=== PATIENT | female | born 1970 | race Hispanic/Latino ===

== ENCOUNTER 2019-01-22 20:08 | Inpatient (IN) | payer SELFPAY ==
[2019-01-22] MEDS ORDERED: Ondansetron PF 4 MG/2 ML Vial IVP PRN (22:25)
[2019-01-22] MEDS ORDERED: Ondansetron ODT 4 MG TAB SL PRN (22:25)
[2019-01-22 22:26] VITALS: BMI 34.9
[2019-01-22] MEDS ORDERED: Pantoprazole 40 MG VIAL IVP SCH (23:30)
[2019-01-22] MEDS: Sodium Chloride 0.9% (PF) 10 ML VIAL FS PRN (23:45)
[2019-01-23] MEDS ORDERED: diphenhydrAMINE 25 MG in Sodium Chloride 0.9% 50 ML IVPB SCH (00:15)
[2019-01-23] MEDS: Morphine 2 MG/ML SYRINGE SLOW IVP PRN ×3 (00:30→19:23)
[2019-01-23] MEDS ORDERED: Loratadine 10 MG TAB PO SCH (02:15)
--- NOTE | 2019-01-23 02:49 | HP ---
CHIEF COMPLAINT: Abdominal pain. HISTORY OF PRESENT ILLNESS: This patient is a 48-year-old female, with a history of longstanding alcoholism and drug abuse. The patient reports that sometime around Yared, she started feeling some generalized abdominal pain and she waited out thinking it would pass. The pain became worse and more localized in the mid and left upper quadrant areas of the abdomen. On , the patient went to the emergency department in [place]. There, she was diagnosed with acute pancreatitis and was hospitalized for 10 days. She was discharged after she was told that there was a mass on the pancreatic head that needed further evaluations and she should abstain from alcohol. She did not follow up. She did not make an appointment. She did not pursue biopsy as she was encouraged to do. Two weeks later, she started drinking alcohol again. She states that since that time essentially she has been getting worse generalized abdominal pain, more specific in the left upper quadrant area. She has had intermittent diarrhea, constipation, severe generalized pruritus, and has recently noticed jaundice in her eyes. She was seen in the ED last month with similar symptoms and was told she needed to be transferred her for admission and further workup, but she declined to do so at that time. Thepatient quit drinking alcohol 2 to 3 weeks ago, primarily because she said beer now tastes like pesticide to her. She also reports about a 50-pound weight loss since September. REVIEW OF SYSTEMS: The patient has decreased appetite, significant nausea, and significant recurrence of reflux symptoms. As mentioned above, she has this severe pruritus, which is probably the most challenging part of all of those for her. Otherwise, all systems are reviewed. All pertinent positives and negatives noted in the history of present illness. PAST MEDICAL HISTORY: Notable for COPD, pancreatitis, bipolar disorder. The patient reports she quit taking medications for that 2 years ago. She does have some reflux. PAST SURGICAL HISTORY: Tubal ligation. FAMILY HISTORY: Mother had coronary artery disease with an [place], diabetes, and hypertension. She only met her father once when she was 9 years old. SOCIAL HISTORY: The patient has had heavy alcohol abuse for years and most recently quit 2 to 3 weeks ago. Reports she tried a couple of swallows 2 or 3 days ago, but it tasted like pesticide to her, so she has not taken anymore. She has a history of drug abuse and took cocaine and methamphetamine last week she states, but otherwise has largely been off drugs. CURRENT MEDICATIONS: Omeprazole. ALLERGIES: NONE. PHYSICAL EXAMINATION: VITAL SIGNS: Temperature 98.4, pulse 77, respirations 18, O2 saturation 97% on room air, BP is 105/75. GENERAL APPEARANCE: Age-appropriate female. She is intermittently very uncomfortable because of some abdominal discomfort and reflux symptoms. She is generally dark and jaundiced. HEENT: She has icterus of her sclerae and notably of her soft palate and oral soft tissues. Pupils are reactive. NECK: Supple and symmetric. HEART: Regular rate and rhythm without murmurs, gallops, or rubs. LUNGS: Clear to auscultation bilaterally with good chest wall expansion and air exchange. ABDOMEN: Soft, nondistended with positive bowel sounds. She has significant diffuse tenderness across the entire upper abdomen with some voluntary guarding. EXTREMITIES: No cyanosis, clubbing, or edema. SKIN: Warm and dry. LABORATORY DATA: White count 6.9, hemoglobin 11.7, platelets 273. Sodium 139, potassium 3.9, chloride 105, CO2 is 25, BUN is 12, creatinine is 0.76, glucose 132. Lactic acid is 0.9. AST 118, ALT 169, alkaline phosphatase 609, albumin 3.4, lipase 176. Urinalysis shows some glucose, large bilirubin, trace leukocyte esterase, 4 to 6 white cells, 11 to 20 squamous epithelial cells, 1+ bacteria, and 2+ Trichomonas. Urine drug screen shows amphetamine, methamphetamine, and cocaine. IMAGING STUDIES: CT of the abdomen reveals prominent intrahepatic and extrahepatic biliary dilatation with dilation of the pancreatic duct, cut off the dilated common bile duct in the region of the pancreatic head suggesting underlying pancreatic head malignancy or biliary duct malignancy consistent with history. IMPRESSION AND PLAN: 1. 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 We will provide pain management with morphine. We will consult GI for ERCP. Possibility she could receive some type of stent to relieve the obstructive symptoms. She also needs a biopsy. Also going to consult Palliative Care. 2. History of chronic obstructive pulmonary disease, appears to be very stable at the moment. We will provide p.r.n. nebulizer treatments as needed. 3. Reflux. The patient has a history of reflux having pretty severe symptoms now. We will give some IV Protonix as I am keeping her n.p.o. for possible procedure in the morning. 4. History of drug and alcohol abuse. The patient appears to be outside the window of significant signs for withdrawal. 5. Elevated liver enzymes, likely related to what appears to be a new neoplasm. We will check ammonia levels and coags in the morning. 6. Generalized pruritus, suspect related to the hyperbilirubinemia. We will provide some Benadryl. Job ID: [id number] [facility]
[2019-01-23 05:30] LABS: PTT 28.4 SEC (22.9-36.1); Prothrombin Time 13.3 SEC (12.0-14.7)
[2019-01-23 05:31] LABS: ALT (SGPT) 145 U/L (8-55); AST (SGOT) 106 U/L (5-34); Albumin 3.2 g/dL (3.5-5.0); Alkaline Phosphatase 567 U/L (40-150); Anion Gap 14 mmol/L (10-20); BUN (Urea Nitrogen) 10 mg/dL (7.0-18.7); Bilirubin, Total 15.9 mg/dL (0.2-1.2); Calc. Creatinine Clearance 153 mL/min (70-130); Carbon Dioxide 21 mmol/L (22-29); Chloride 109 mmol/L (98-107); Estimated GFR-MDRD Greater than 90; Globulin 3.1 g/dL (2.4-3.5); Glucose 127 mg/dL (70-105); Potassium 3.8 mmol/L (3.5-5.1); Protein, Total 6.3 g/dL (6.0-8.3); Sodium 140 mmol/L (136-145)
[2019-01-23] MEDS ORDERED: hydrALAZINE 20 MG/ML VIAL SLOW IVP PRN (07:26)
[2019-01-23] MEDS ORDERED: Diabetic Tussin 200 MG/10 ML UDCUP PO PRN (07:26)
[2019-01-23] MEDS ORDERED: Sodium Chloride 0.65% Nasal 44 ML BOT EA NARE PRN (07:26)
[2019-01-23] MEDS ORDERED: Cepastat Lozenges 1 LOZ PO PRN (07:26)
[2019-01-23] MEDS ORDERED: Senokot S 8.6-50 MG TAB PO PRN (07:26)
[2019-01-23] MEDS ORDERED: Loperamide HCl 2 MG CAP PO PRN (07:26)
[2019-01-23] MEDS ORDERED: Zolpidem Tartrate 5 MG TAB PO PRN (07:26)
[2019-01-23] MEDS ORDERED: Bisacodyl 10 MG SUPP PR PRN (07:26)
[2019-01-23] MEDS ORDERED: Artificial Tears 18 DROP/0.9 ML EA EYE PRN (07:26)
[2019-01-23] MEDS ORDERED: Eucerin (Mineral Oil/Petrolatum,White) 30 gm Jar TOP PRN (07:26)
[2019-01-23] MEDS ORDERED: Ondansetron PF 4 MG/2 ML Vial IVP PRN (07:28)
[2019-01-23] MEDS ORDERED: Ondansetron ODT 4 MG TAB PO PRN (07:28)
[2019-01-23] MEDS: Pantoprazole 40 MG VIAL IVP SCH (07:53)
[2019-01-23] MEDS ORDERED: Levofloxacin 500 mg/D5W 100 ml Premix Bag ONE (09:27)
[2019-01-23] MEDS ORDERED: Midazolam HCl 2 mg/2 ml Vial ONE (09:34)
[2019-01-23] MEDS ORDERED: Fentanyl 100 MCG/2 ML VIAL ONE ×2 (09:46→11:21)
[2019-01-23] MEDS ORDERED: Iothalamate Meglumine 60% 50 ML VIAL FS ONE (10:11)
--- NOTE | 2019-01-23 11:04 | RAD ---
Exam: ERCP COMPARISON: CT abdomen/pelvis 01/22/2019 Findings/impression: Limited intraoperative fluoroscopic views during an ERCP were submitted for inte rpretation. There is contrast within a dilated common bile duct and central intrahepatic biliary tree. No obvious filling defect is seen. The last image shows a stent spanning the area of narrowing through the region of the pancreatic head.
[2019-01-23] MEDS ORDERED: Promethazine HCl 25 MG/ML VIAL SLOW IVP PRN (11:05)
[2019-01-23] MEDS ORDERED: Morphine Sulfate 2 MG/ML SYRINGE SLOW IVP PRN (11:05)
[2019-01-23] MEDS ORDERED: HYDROmorphone 2 MG/ML VIAL SLOW IVP PRN (11:05)
[2019-01-23] MEDS ORDERED: Promethazine HCl 25 MG/ML VIAL IM PRN (11:05)
[2019-01-23] MEDS ORDERED: Meperidine HCl/PF 25 MG/ML VIAL SLOW IVP PRN (11:05)
[2019-01-23] MEDS ORDERED: PACU-Morphine 4MG/ML VIAL SLOW IVP PRN (11:05)
[2019-01-23] MEDS ORDERED: Ondansetron HCl/PF 4 MG/2 ML Vial IVP PRN (11:05)
[2019-01-23] MEDS ORDERED: Indomethacin 50 MG SUPP ONE (11:12)
--- NOTE | 2019-01-23 11:22 | CON ---
DATE OF CONSULTATION: 01/23/2019 REASON FOR CONSULTATION: Biliary obstruction. HISTORY OF PRESENT ILLNESS: Ms. Botello is a 48-year-old female, who was admitted to the hospital last night, presenting with complaints of severe pruritus, abdominal discomfort, and prior history of pancreatitis and pancreatic mass. She was found to have elevated bilirubin and mildly elevated lipase. Apparently, she had been seen around in [place], where this was initially diagnosed, she had acute pancreatitis. She states at that time was told she was going to need an ERCP to open up her bile duct, but that her pancreas was too inflamed at that point in time. She reports she did not follow up at that time. She was in the hospital about 10 days. She was also told to abstain from alcohol, which she did for about 2 weeks, then she started drinking again, but in the past 4 weeks, she has drunk no alcohol. She reports she has been alcoholic for 30 years. Over the past several weeks, she has had worsening pruritus, jaundice, icterus, upper abdominal pain mainly in the left side, but across the entire abdomen. She will also have some pain with eating sometimes. Apparently, she had gone to the emergency room at the end of last month and was told that she needed to be admitted for further examination, but she declined that at that time. Other history is significant for the fact that she has lost about 50 pounds since September. REVIEW OF SYSTEMS: Loss of appetite, loss of weight. No fever no vomiting. Pruritus, acholic stools. Positive for some congestion. She reports using inhaler at home, but does not have that here. She has had no hemoptysis, no melena. No hematemesis or hematochezia. She denies any chest pain or dyspnea on exertion. PAST MEDICAL HISTORY: COPD; pancreatitis, diagnosed in September of this year; bipolar disorder, she has been on no medicines for that for 2 years. She has some reflux and takes Prilosec. PAST SURGICAL HISTORY: Tubal ligation. FAMILY HISTORY: Mother had coronary artery disease with [place], diabetes, hypertension. She states she does not really know her father, he had with the surgery and never "woke up." SOCIAL HISTORY: She has been a heavy drinker for about 30 years that she stopped about 2 to 4 weeks ago. She is drinking beer. She has also used drugs including crack cocaine and methamphetamine. Last time she used methamphetamine was a week ago. HOME MEDICATIONS: Omeprazole. ALLERGIES: NONE KNOWN. MEDICATIONS: Medications at here; 1. Tylenol. 2. DuoNeb. 3. Benadryl. 4. Robitussin. 5. Hydralazine. 6. Lomotil. 7. P.r.n. morphine. 8. P.r.n. Zofran. 9. Protonix 40 IV daily. PHYSICAL EXAMINATION: GENERAL: She is very anxious. She is resting in bed. VITAL SIGNS: Temperature is 98, pulse 76, pressure 135/83. She has some sores in her skin, probably from itching, although cannot rule out bug bites. She is icteric. She is restless in bed, but mainly from nervousness. She denies any severe pain at this time. HEENT: Oropharynx is dry. NECK: Supple. LUNGS: Clear. HEART: Regular rate and rhythm without clicks, rubs, or murmurs. ABDOMEN: Soft. There is tenderness, but no rebound or guarding diffusely. EXTREMITIES: No clubbing, cyanosis, or edema. NEUROLOGIC: Grossly intact. LABORATORY STUDIES: White count 6.9, hemoglobin 11.7, platelet count 273. INR was 1. Sodium 140, potassium 3.8, BUN and creatinine are 10 and 0.6, glucose 127, calcium 9. Bilirubin 15, it was 9 on 01/07. AST and ALT are 106 and 145, alkaline phosphatase is 567. Lipase was 176 yesterday. Urinalysis revealed bilirubin, trace leukocyte esterase, 11 to 20 squames, 4 to 6 white blood cells, 1+ bacteria, and positive Trichomonas. Drug screen on 01/22, positive for amphetamine, methamphetamine, and cocaine. Alcohol on 01/07 was less than 10. CAT scan was reviewed, this shows ill-defined fullness in the head of the pancreas. There is massive intrahepatic ductal dilatation and common bile duct dilation up to 1.9 cm. There is dilation of the pancreatic duct. ASSESSMENT: 1. This is a 48-year-old female, who has evidence of pancreatic and biliary duct dilatation and obstruction. She is symptomatic with severe pruritus. She has no signs of cholangitis. She has some abdominal pain and mildly elevated lipase, but no overt pancreatitis on CAT scan. It is unclear if she has a pancreas mass or this is just changes from pancreatitis, although she states when she was initially in the hospital in [place], she was told there was a mass present in the pancreas. At that time, she did not follow up for any workup with that and has refused admission to the hospital as recently as the 07 of January. Differential diagnosis would include a pancreatic neoplasia, ampullary neoplasia, or even just scar tissue from recurrent pancreatitis. 2. History of drug use in the past including IV. She is not aware of any previous infection testing and will need this. 3. Chronic obstructive pulmonary disease, mild. 4. History of alcoholism and alcohol abuse. 5. History of drug use with positive drug screen still presently. 6. She is very anxious. RECOMMENDATIONS: 1. We will start her on IV fluids. 2. ERCP today. Risks, benefits, and possible complications including perforation, bleeding, reaction to medication, aspiration, and pancreatitis discussed with the patient and her family member and friend at the bedside. 3. The patient will need testing for hepatitis A, B, and C, and HIV. 4. The patient will likely ultimately need an EUS for diagnosis if it appears there is a mass present and we cannot make a diagnosis at the time of ERCP. 5. We have discussed with the patient and the acquaintance with her that there is some risk that we cannot get into the bile duct and get her drained. The patient was given time to ask questions and did so, which we answered. We will proceed with this procedure this morning. Job ID: [id number]
[2019-01-23] MEDS ORDERED: Promethazine HCl 25 MG/ML VIAL ONE (11:24)
--- NOTE | 2019-01-23 11:56 | PDOC.PN ---
- Subjective Encounter Start Date: 01/23/19 Encounter Start Time: 15:22 Patient seen and examined. No new complaints. No overnight events - Objective Resuscitation Status - Order Detail: 01/22/19 23:21 Resuscitation Status Routine Resuscitation Status: FULL: Full Resuscitation MAR Reviewed: Yes Vital Signs & Weight: Vital Signs (12 hours) Temp Pulse Resp BP Pulse Ox 01/23/19 08:00 98 01/23/19 07:52 98.4 F 76 18 135/83 98 01/23/19 00:00 98.9 F 76 18 116/81 96 Weight Weight 191 lb 6.4 oz Result Diagrams: 01/23/19 04:59 Radiology Reviewed by me: Yes Phys Exam - Physical Examination Constitutional: NAD HEENT: PERRLA, moist MMs icterus+ Neck: no JVD, supple Respiratory: no wheezing, no rales, no rhonchi Cardiovascular: RRR, no significant murmur, no rub Gastrointestinal: soft, no distention, positive bowel sounds Musculoskeletal: no edema, pulses present Neurological: non-focal, normal sensation, moves all 4 limbs Lymphatic: no nodes Psychiatric: normal affect, A&O x 3 Skin: no rash, normal turgor Dx/Plan (1) Obstructive jaundice Code(s): K83.1 - OBSTRUCTION OF BILE DUCT Status: Acute (2) Pancreatic mass Status: Acute (3) Abnormal LFTs Code(s): R94.5 - ABNORMAL RESULTS OF LIVER FUNCTION STUDIES Status: Acute (4) COPD (chronic obstructive pulmonary disease) Status: Chronic (5) GERD (gastroesophageal reflux disease) Code(s): K21.9 - GASTRO-ESOPHAGEAL REFLUX DISEASE WITHOUT ESOPHAGITIS Status: Chronic (6) Obesity (BMI 30-39.9) Code(s): E66.9 - OBESITY, UNSPECIFIED Status: Chronic (7) Polysubstance abuse Code(s): F19.10 - OTHER PSYCHOACTIVE SUBSTANCE ABUSE, UNCOMPLICATED Status: Chronic - Plan cont current plan of care * continue IVF * repeat labs tomorrow * today ERCP/MRCP * medication reviewed as below * symptomatic treatment. Review of Systems - Review of Systems ENT: negative: Ear Pain, Ear Discharge, Nose Pain, Nose Discharge, Nose Congestion, Mouth Pain, Mouth Swelling, Throat Pain, Throat Swelling, Other Respiratory: negative: Cough, Dry, Shortness of Breath, Hemoptysis, SOB with Excertion, Pleuritic Pain, Sputum, Wheezing Cardiovascular: negative: chest pain, palpitations, orthopnea, paroxysmal nocturnal dyspnea, edema, light headedness, other Gastrointestinal: negative: Nausea, Vomiting, Abdominal Pain, Diarrhea, Constipation, Melena, Hematochezia, Other Genitourinary: negative: Dysuria, Frequency, Incontinence, Hematuria, Retention , Other Musculoskeletal: negative: Neck Pain, Shoulder Pain, Arm Pain, Back Pain, Hand Pain, Leg Pain, Foot Pain, Other - Medications/Allergies Allergies/Adverse Reactions: Allergies Allergy/AdvReac Type Severity Reaction Status Date / Time No Known Drug Allergies Allergy Verified 01/22/19 22:24 Medications: Current Medications Acetaminophen (Tylenol) 650 mg PO Q4H PRN PRN Reason: Headache/Fever/Mild Pain (1-3) Albuterol/Ipratropium (Duoneb) 3 ml NEB N3UR-US PRN PRN Reason: SOB &/or Wheezing Artificial Tears (Tears Naturale) 2 drop EA EYE PRN PRN PRN Reason: Dry Eyes Bisacodyl (Dulcolax) 10 mg VT DAILYPRN PRN PRN Reason: Constipation Diphenhydramine HCl (Benadryl) 25 mg IVP Q4H PRN PRN Reason: Itching & Hives (mild) Enoxaparin Sodium (Lovenox) 40 mg SC 2100 CHACE Fentanyl (Pacu-Sublimaze) 50 mcg SLOW IVP Q10MIN PRN PRN Reason: Moderate to Severe Pain (6-10) Stop: 01/23/19 14:05 Guaifenesin (Robitussin Sf) 200 mg PO Q4H PRN PRN Reason: Cough Hydralazine HCl (Apresoline) 10 mg SLOW IVP Q4H PRN PRN Reason: SBP > 180 and HR < 70 Hydromorphone HCl (Pacu-Dilaudid) 0.5 mg SLOW IVP Q10MIN PRN PRN Reason: Moderate to Severe Pain (6-10) Stop: 01/23/19 14:05 Lactated Ringer's (Lactated Ringer's) 1,000 mls @ 120 mls/hr IV .Q8H20M CHACE Loperamide HCl (Imodium) 2 mg PO PRN PRN PRN Reason: Diarrhea/Loose Stools Meperidine HCl (Pacu-Demerol) 25 mg SLOW IVP ONE PRN PRN Reason: Shivering Stop: 01/23/19 14:05 Mineral Oil/White Petrolatum (Eucerin Cream) 0 gm TOP BIDPRN PRN PRN Reason: Dry Skin Morphine Sulfate (Morphine) 2 mg SLOW IVP Q4H PRN PRN Reason: Moderate to Severe Pain (6-10) Last Admin: 01/23/19 07:52 Dose: 2 mg Morphine Sulfate (Pacu-Morphine) 4 mg SLOW IVP ONE PRN PRN Reason: Moderate to Severe Pain (6-10) Stop: 01/23/19 14:05 Morphine Sulfate (Pacu-Morphine Sulfate) 2 mg SLOW IVP Q10MIN PRN PRN Reason: Moderate to Severe Pain (6-10) Stop: 01/23/19 14:05 Ondansetron HCl (Zofran Odt) 4 mg PO Q6H PRN PRN Reason: Nausea/Vomiting Ondansetron HCl (Zofran) 4 mg IVP Q6H PRN PRN Reason: Nausea/Vomiting Ondansetron HCl (Pacu-Zofran) 4 mg IVP ONE PRN PRN Reason: Nausea/Vomiting Stop: 01/23/19 14:05 Pantoprazole Sodium (Protonix) 40 mg IVP DAILY CHACE Last Admin: 01/23/19 07:53 Dose: 40 mg Promethazine HCl (Pacu-Phenergan) 6.25 mg SLOW IVP ONE PRN PRN Reason: Nausea/Vomiting Stop: 01/23/19 14:05 Promethazine HCl (Pacu-Phenergan) 6.25 mg IM ONE PRN PRN Reason: Nausea/Vomiting Stop: 01/23/19 14:05 Senna/Docusate Sodium (Senokot S) 2 tab PO BID PRN PRN Reason: Constipation Sodium Chloride (Normal Saline Pf) 10 ml FS PRN PRN PRN Reason: RECONSTITUTION Last Admin: 01/22/19 23:45 Dose: 10 ml Sodium Chloride ([place] Nasal [place] 0.65%) 0 ml EA NARE QIDPRN PRN PRN Reason: Nasal Congestion Throat Lozenges (Cepastat Lozenges) 1 joselo PO Q2H PRN PRN Reason: Sore Throat Zolpidem Tartrate (Ambien) 5 mg PO HSPRN PRN PRN Reason: Insomnia
--- NOTE | 2019-01-23 12:05 | OP ---
DATE OF PROCEDURE: 01/23/2019 PROCEDURE PERFORMED: Endoscopic retrograde cholangiopancreatography with stent placement and brushing of bile duct. PREOPERATIVE DIAGNOSES: 1. Biliary obstruction with jaundice, pruritus, and icterus. 2. Possible mass in the head of the pancreas with dilated intrahepatic and common bile duct as well as pancreatic duct. POSTOPERATIVE DIAGNOSES: 1. Normal ampulla with periampullary diverticula. 2. 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 3. Sphincterotomy was performed. Stricture was brushed and a 5 cm 11.5-Tamazight stent was placed across the stricture with good drainage both endoscopically and radiographically. ANESTHESIA: General endotracheal anesthesia. Levaquin 500 mg IV was given preprocedure, Indocin suppositories 100 mg and IV fluids to decrease risk of post-ERCP pancreatitis. COMPLICATIONS: None. RECOMMENDATIONS: 1. Start liquid diet, advance slowly as tolerated. Follow liver function tests. Await brushing results. 2. The patient will need stent change or removal in the next 2 to 3 months. This will be predicated on ultimate diagnosis of the underlying pathology. DESCRIPTION OF PROCEDURE: After the patient was informed of the risks, benefits, and possible complications of endoscopy including perforation, bleeding, reaction to medication, aspiration, and pancreatitis, informed consent was obtained. She was brought to the fluoroscopy suite where she was intubated and placed in a prone position. A bite block was placed inside the orifice. The side-viewing duodenum scope was advanced to the esophagus, stomach, and second and third portions of the duodenum. The ampulla was brought into view. The ampulla appeared normal, except for a small periampullary diverticula. Cannulation was obtained with guidewire assistance. Initially, guidewire was placed in the pancreatic duct x2. No injections. One small injection of 0.1 mL was performed. The pancreatic duct was not filled. The catheter and wire were removed from the pancreatic duct and repositioned. We were able to cannulate the bile duct with a wire and then confirmed this with cholangiogram. Stricture 3 cm in length at the distal aspect of the duct was noted. Wire was placed up in the intrahepatic biliary tree. Cholangiogram revealed massively dilated intrahepatic bile duct. The 15 to 20 mm of the entire ductal system was not filled. Sphincterotomy was then performed over the guidewire and a 5 cm 11.5-Tamazight stent was deployed over the guidewire with a cholangiogram performed through the guide catheter confirming the proximal extent of the stricture. There was good deployment of the stent with good drainage noted both endoscopically and radiographically. The wires and guide catheter were removed. Further documentation was obtained. The stomach and duodenum were desufflated, and the scope was removed. The patient was brought to recovery room in stable condition. Job ID: [id number]
[2019-01-23] MEDS: Lactated Ringer's 1,000 ML IV SCH ×2 (13:49→19:46)
[2019-01-23] MEDS: diphenhydrAMINE 50 MG/ML VIAL IVP PRN ×2 (13:50→20:48)
[2019-01-23] MEDS ORDERED: Rocuronium Bromide 10 MG/ML (10ML VIAL) ONE (16:48)
[2019-01-23] MEDS ORDERED: Glycopyrrolate 0.2 MG/ML 5 ML SYRINGE ONE (16:48)
[2019-01-23] MEDS ORDERED: PROPOFOL 200 MG/20 ML VIAL ONE (16:48)
[2019-01-23] MEDS ORDERED: Lidocaine 1% PF 5 ML VIAL ONE (16:48)
[2019-01-23] MEDS ORDERED: Ondansetron PF 4 MG/2 ML Vial ONE (16:48)
[2019-01-23] MEDS ORDERED: Dexamethasone 20 MG/5 ML VIAL ONE (16:48)
[2019-01-23] MEDS: hydrOXYzine 25 MG TAB PO PRN ×2 (16:56→22:03)
[2019-01-23] MEDS: Enoxaparin Sodium 40 MG/0.4 ML SYRINGE SC SCH (19:24)
[2019-01-24] MEDS: Lactated Ringer's 1,000 ML IV SCH ×3 (00:34→21:51)
[2019-01-24] MEDS: Morphine 2 MG/ML SYRINGE SLOW IVP PRN ×3 (04:49→20:06)
[2019-01-24] MEDS: hydrOXYzine 25 MG TAB PO PRN ×2 (06:30→14:40)
[2019-01-24] MEDS: diphenhydrAMINE 50 MG/ML VIAL IVP PRN (06:30)
[2019-01-24] MEDS: Pantoprazole 40 MG VIAL IVP SCH (07:34)
[2019-01-24] MEDS: Sodium Chloride 0.9% (PF) 10 ML VIAL FS PRN (07:34)
[2019-01-24 07:54] LABS: #Eosinphils 0.1 thou/uL (0.0-0.7); #Lymphocytes 2.2 thou/uL (1.20-3.40); #Monocytes 0.6 thou/uL (0.11-0.59); #Neutrophils 4.5 thou/uL (1.40-6.50); %Basophils 0.3 % (0.0-1.0); %Eosinophils 0.9 % (0.0-10.0); %Lymphocytes 29.4 % (21.0-51.0); %Monocytes 7.6 % (0.0-10.0); %Neutrophils 61.9 % (42.0-75.0); Hemoglobin 10.6 g/dL (12.0-16.0); Mean Corpuscular HGB CONC 32.8 g/dL (32.0-36.0); Mean Corpuscular Volume 97.5 fL (78.0-98.0); Mean Platelet Volume 11.1 fL (7.4-10.4); Platelet Count 228 thou/uL (130-400); RBC Distribution Width 14.7 % (11.5-14.5); Red Blood Cell (RBC) Count 3.33 mill/uL (4.20-5.40); White Blood Cell (WBC) Count 7.3 thou/uL (4.8-10.8)
[2019-01-24 08:06] LABS: ALT (SGPT) 113 U/L (8-55); AST (SGOT) 56 U/L (5-34); Albumin 3.1 g/dL (3.5-5.0); Alkaline Phosphatase 514 U/L (40-150); Anion Gap 11 mmol/L (10-20); BUN (Urea Nitrogen) 12 mg/dL (7.0-18.7); Bilirubin, Total 7.1 mg/dL (0.2-1.2); Calc. Creatinine Clearance 150 mL/min (70-130); Calcium 9.1 mg/dL (7.8-10.44); Carbon Dioxide 26 mmol/L (22-29); Chloride 105 mmol/L (98-107); Estimated GFR-MDRD Greater than 90; Globulin 3.6 g/dL (2.4-3.5); Glucose 131 mg/dL (70-105); Lipase 114 U/L (8-78); Potassium 3.7 mmol/L (3.5-5.1); Protein, Total 6.7 g/dL (6.0-8.3); Sodium 138 mmol/L (136-145)
[2019-01-24 08:26] LABS: HBCM Index 0.08 S/CO (0-0.79); HBSAg Index 0.42 S/CO (0-0.99); Hep A IgM AB Non-Reactive (NonReactive); Hep A IgM S/CO 0.23 S/CO (0-0.79); Hep B Surf Ag Non-Reactive S/CO (NonReactive); Hep C IgG Ab Non-Reactive (NonReactive); Hep C Index 0.11 S/CO (0-0.79); Hepatitis B Core IgM Abs Non-Reactive (NonReactive)
[2019-01-24] MEDS ORDERED: Lorazepam 2 MG/ML VIAL SLOW IVP SCH (10:00)
--- NOTE | 2019-01-24 11:28 | PDOC.PN ---
- Subjective Encounter Start Date: 01/24/19 Encounter Start Time: 09:45 Patient seen and examined. No new complaints. No overnight events - Objective Resuscitation Status - Order Detail: 01/22/19 23:21 Resuscitation Status Routine Resuscitation Status: FULL: Full Resuscitation MAR Reviewed: Yes Vital Signs & Weight: Vital Signs (12 hours) Temp Pulse Resp BP Pulse Ox 01/24/19 08:00 98 01/24/19 07:42 98.0 F 68 22 H 131/85 98 01/24/19 04:54 68 97 Weight Admit Weight 191 lb 6.4 oz Weight 191 lb 6.4 oz Result Diagrams: 01/24/19 07:24 01/24/19 07:24 Phys Exam - Physical Examination Constitutional: NAD HEENT: PERRLA, moist MMs iceterus reduced Neck: no JVD, supple Respiratory: no wheezing, no rales, no rhonchi Cardiovascular: RRR, no significant murmur, no rub Gastrointestinal: soft, no distention, positive bowel sounds RUQ discomfort Musculoskeletal: no edema, pulses present Neurological: non-focal, normal sensation, moves all 4 limbs Lymphatic: no nodes Psychiatric: normal affect, A&O x 3 Skin: no rash, normal turgor Dx/Plan (1) Obstructive jaundice Code(s): K83.1 - OBSTRUCTION OF BILE DUCT Status: Acute (2) Pancreatic mass Status: Acute (3) Abnormal LFTs Code(s): R94.5 - ABNORMAL RESULTS OF LIVER FUNCTION STUDIES Status: Acute (4) COPD (chronic obstructive pulmonary disease) Status: Chronic (5) GERD (gastroesophageal reflux disease) Code(s): K21.9 - GASTRO-ESOPHAGEAL REFLUX DISEASE WITHOUT ESOPHAGITIS Status: Chronic (6) Obesity (BMI 30-39.9) Code(s): E66.9 - OBESITY, UNSPECIFIED Status: Chronic (7) Polysubstance abuse Code(s): F19.10 - OTHER PSYCHOACTIVE SUBSTANCE ABUSE, UNCOMPLICATED Status: Chronic - Plan cont current plan of care, plan discussed w/ family * today MRCP, further plan based on MRCP report * will monitor LFT trend * GI following. * counselled to avoid polysubstance abuse * medication reviewed as below * symptomatic treatment Review of Systems - Review of Systems ENT: negative: Ear Pain, Ear Discharge, Nose Pain, Nose Discharge, Nose Congestion, Mouth Pain, Mouth Swelling, Throat Pain, Throat Swelling, Other Respiratory: negative: Cough, Dry, Shortness of Breath, Hemoptysis, SOB with Excertion, Pleuritic Pain, Sputum, Wheezing Cardiovascular: negative: chest pain, palpitations, orthopnea, paroxysmal nocturnal dyspnea, edema, light headedness, other Gastrointestinal: Nausea, Abdominal Pain. negative: Vomiting, Diarrhea, Constipation, Melena, Hematochezia, Other Genitourinary: negative: Dysuria, Frequency, Incontinence, Hematuria, Retention , Other Musculoskeletal: negative: Neck Pain, Shoulder Pain, Arm Pain, Back Pain, Hand Pain, Leg Pain, Foot Pain, Other Skin: negative: Rash, Lesions, Sloan, Bruising, Other - Medications/Allergies Allergies/Adverse Reactions: Allergies Allergy/AdvReac Type Severity Reaction Status Date / Time No Known Drug Allergies Allergy Verified 01/22/19 22:24 Medications: Current Medications Acetaminophen (Tylenol) 650 mg PO Q4H PRN PRN Reason: Headache/Fever/Mild Pain (1-3) Albuterol/Ipratropium (Duoneb) 3 ml NEB [id number] PRN PRN Reason: SOB &/or Wheezing Last Admin: 01/24/19 04:54 Dose: 3 ml Artificial Tears (Tears Naturale) 2 drop EA EYE PRN PRN PRN Reason: Dry Eyes Bisacodyl (Dulcolax) 10 mg [place] DAILYPRN PRN PRN Reason: Constipation Diphenhydramine HCl (Benadryl) 25 mg IVP Q4H PRN PRN Reason: Itching & Hives (mild) Last Admin: 01/24/19 06:30 Dose: 25 mg Enoxaparin Sodium (Lovenox) 40 mg SC 2100 CHACE Last Admin: 01/23/19 19:24 Dose: Not Given Guaifenesin (Robitussin Sf) 200 mg PO Q4H PRN PRN Reason: Cough Hydralazine HCl (Apresoline) 10 mg SLOW IVP Q4H PRN PRN Reason: SBP > 180 and HR < 70 Hydroxyzine HCl (Atarax) 25 mg PO Q6H PRN PRN Reason: Itching Last Admin: 01/24/19 06:30 Dose: 25 mg Lactated Ringer's (Lactated Ringer's) 1,000 mls @ 120 mls/hr IV .Q8H20M [facility] Last Admin: 01/24/19 11:02 Dose: 1,000 mls Loperamide HCl (Imodium) 2 mg PO PRN PRN PRN Reason: Diarrhea/Loose Stools Lorazepam (Ativan) 2 mg SLOW IVP NOW [facility] Stop: 01/24/19 12:00 Last Admin: 01/24/19 10:07 Dose: 2 mg Mineral Oil/White Petrolatum (Eucerin Cream) 0 gm TOP BIDPRN PRN PRN Reason: Dry Skin Morphine Sulfate (Morphine) 2 mg SLOW IVP Q4H PRN PRN Reason: Moderate to Severe Pain (6-10) Last Admin: 01/24/19 04:49 Dose: 2 mg Ondansetron HCl (Zofran Odt) 4 mg PO Q6H PRN PRN Reason: Nausea/Vomiting Ondansetron HCl (Zofran) 4 mg IVP Q6H PRN PRN Reason: Nausea/Vomiting Pantoprazole Sodium (Protonix) 40 mg IVP DAILY [facility] Last Admin: 01/24/19 07:34 Dose: 40 mg Senna/Docusate Sodium (Senokot S) 2 tab PO BID PRN PRN Reason: Constipation Sodium Chloride (Normal Saline Pf) 10 ml FS PRN PRN PRN Reason: RECONSTITUTION Last Admin: 01/24/19 07:34 Dose: 10 ml Sodium Chloride ([place] Nasal [place] 0.65%) 0 ml EA NARE QIDPRN PRN PRN Reason: Nasal Congestion Throat Lozenges (Cepastat Lozenges) 1 joselo PO Q2H PRN PRN Reason: Sore Throat Zolpidem Tartrate (Ambien) 5 mg PO HSPRN PRN PRN Reason: Insomnia
[2019-01-24] MEDS: Acetaminophen 325 MG TAB PO PRN (11:44)
--- NOTE | 2019-01-24 12:30 | MRI ---
MRI ABDOMEN WITH AND WITHOUT IV CONTRAST: Date: 01/24/19 HISTORY: Biliary dilatation, status post stent placement. Pancreatic mass. FINDINGS: Comparison made with CT scan from previous day. There is biliary ductal dilatation. Biliary stent is present. There is a 1.5 cm hypointense mass in the uncinate process of the pancreas. The pancreatic duct is di lated. No liver masses are seen. The spleen, adrenal glands, and kidneys are normal. No gallstones are seen. No free fluid or lymphadenopathy noted. There is no tumor involvement of the celiac axis, SMA, or the portal veins. The bone marrow signal is normal. IMPRESSION: Findings suspicious for pancreatic malignancy (1.5 cm mass) in the uncinate process of the pancreas. POS: CINDY
--- NOTE | 2019-01-24 17:44 | PRG ---
DATE OF SERVICE: 01/24/2019 SUBJECTIVE: Ms. Botello is resting in bed. She states that she does have some left upper quadrant and left back pain. She has a lot less itchy, but still is itchy. OBJECTIVE: VITAL SIGNS: Temperature is 98.5, pulse 96, O2 saturations are 85% on room air, and blood pressure is 118/79. LUNGS: Clear. HEART: Regular rate and rhythm without clicks, rubs, or murmurs. ABDOMEN: Soft and nontender. There is some tenderness in the left flank and side. LABORATORY DATA: White count 7.3, hemoglobin 10.6, platelet count 228. Bilirubin is down from 15 to 7, AST from 106 to 56, ALT from 145 to 113, alkaline phosphatase from 567 to 514, lipase is 114. CEA is 6.24. CA-19-9 is pending. Hepatitis A, B and C are negative. HIV is pending. ASSESSMENT: Obstructive jaundice, improving status post stent placement. Cytology specimen from bile duct stricture. Brushing is pending. MRI did show a 1.5 cm mass in the head of the pancreas. Differential diagnosis would include primary pancreatic malignancy, adenocarcinoma, or neuroendocrine tumor versus scar from previous episodes of pancreatitis. Prior history of substance abuse and alcohol abuse. No signs of withdrawal at this point in time. RECOMMENDATIONS: 1. We will give her banana bag daily, multivitamin, thiamine, and folate orally. 2. Await CA-19-9. Await bile duct brushings. If these are all negative, we can reasonably consider transfer to a tertiary care facility, where EUS and pancreatic surgeons are available. Job ID: [id number]
[2019-01-24] MEDS: Enoxaparin Sodium 40 MG/0.4 ML SYRINGE SC SCH (20:07)
[2019-01-25] MEDS: Lactated Ringer's 1,000 ML IV SCH ×2 (04:07→12:14)
[2019-01-25] MEDS: Morphine 2 MG/ML SYRINGE SLOW IVP PRN ×4 (04:10→20:29)
[2019-01-25 05:32] LABS: #Basophils 0.1 thou/uL (0.0-0.2); #Eosinphils 0.1 thou/uL (0.0-0.7); #Lymphocytes 2.6 thou/uL (1.20-3.40); #Monocytes 0.5 thou/uL (0.11-0.59); #Neutrophils 3.2 thou/uL (1.40-6.50); %Basophils 1.3 % (0.0-1.0); %Lymphocytes 39.9 % (21.0-51.0); %Monocytes 8.1 % (0.0-10.0); %Neutrophils 49.7 % (42.0-75.0); Hemoglobin 10.8 g/dL (12.0-16.0); Mean Corpuscular HGB CONC 32.5 g/dL (32.0-36.0); Mean Corpuscular Hemoglobin 31.2 pg (27.0-31.0); Mean Corpuscular Volume 96.1 fL (78.0-98.0); Mean Platelet Volume 10.9 fL (7.4-10.4); Platelet Count 225 thou/uL (130-400); RBC Distribution Width 14.6 % (11.5-14.5); Red Blood Cell (RBC) Count 3.47 mill/uL (4.20-5.40); White Blood Cell (WBC) Count 6.4 thou/uL (4.8-10.8)
[2019-01-25 05:59] LABS: ALT (SGPT) 105 U/L (8-55); AST (SGOT) 57 U/L (5-34); Alkaline Phosphatase 430 U/L (40-150); Anion Gap 13 mmol/L (10-20); BUN (Urea Nitrogen) 8 mg/dL (7.0-18.7); Calc. Creatinine Clearance 161 mL/min (70-130); Calcium 8.8 mg/dL (7.8-10.44); Carbon Dioxide 25 mmol/L (22-29); Chloride 106 mmol/L (98-107); Estimated GFR-MDRD Greater than 90; Globulin 3.5 g/dL (2.4-3.5); Glucose 108 mg/dL (70-105); Lipase 104 U/L (8-78); Potassium 3.6 mmol/L (3.5-5.1); Protein, Total 6.5 g/dL (6.0-8.3); Sodium 140 mmol/L (136-145)
[2019-01-25 06:13] LABS: HIV (1/2) Antibody/Antigen Non-Reactive (NonReactive); HIV 1/2 INDEX 0.08 S/CO (<1.00)
[2019-01-25] MEDS: Sodium Chloride 0.9% (PF) 10 ML VIAL FS PRN (08:04)
[2019-01-25] MEDS: Pantoprazole 40 MG VIAL IVP SCH (08:04)
[2019-01-25] MEDS: Acetaminophen 325 MG TAB PO PRN (09:50)
--- NOTE | 2019-01-25 10:40 | PDOC.PN ---
- Subjective Encounter Start Date: 01/25/19 Encounter Start Time: 08:00 Patient seen and examined. No new complaints. No overnight events pt has no BM for few days, she has abdominal pain she does not want to be transferred to [place] for higher level of care - Objective Resuscitation Status - Order Detail: 01/22/19 23:21 Resuscitation Status Routine Resuscitation Status: FULL: Full Resuscitation MAR Reviewed: Yes Vital Signs & Weight: Vital Signs (12 hours) Temp Pulse Resp BP Pulse Ox 01/25/19 08:00 97 01/25/19 07:45 98.6 F 60 20 156/89 H 97 Weight Admit Weight 191 lb 6.4 oz Weight 191 lb 6.4 oz Result Diagrams: 01/25/19 05:11 01/25/19 05:11 Phys Exam - Physical Examination Constitutional: NAD HEENT: PERRLA, moist MMs, sclera anicteric Neck: no JVD, supple Respiratory: no wheezing, no rales, no rhonchi Cardiovascular: RRR, no significant murmur, no rub Gastrointestinal: soft, non-tender, no distention, positive bowel sounds Musculoskeletal: no edema, pulses present Neurological: non-focal, normal sensation, moves all 4 limbs Lymphatic: no nodes Psychiatric: normal affect, A&O x 3 Skin: no rash, normal turgor Dx/Plan (1) Obstructive jaundice Code(s): K83.1 - OBSTRUCTION OF BILE DUCT Status: Acute (2) Pancreatic mass Status: Acute (3) Abnormal LFTs Code(s): R94.5 - ABNORMAL RESULTS OF LIVER FUNCTION STUDIES Status: Acute (4) COPD (chronic obstructive pulmonary disease) Status: Chronic (5) GERD (gastroesophageal reflux disease) Code(s): K21.9 - GASTRO-ESOPHAGEAL REFLUX DISEASE WITHOUT ESOPHAGITIS Status: Chronic (6) Obesity (BMI 30-39.9) Code(s): E66.9 - OBESITY, UNSPECIFIED Status: Chronic (7) Polysubstance abuse Code(s): F19.10 - OTHER PSYCHOACTIVE SUBSTANCE ABUSE, UNCOMPLICATED Status: Chronic - Plan cont current plan of care * fleet enema * repeat labs tomorrow * pain control * pt has decided not to be transferred for higher level of care, she understands consequences * medication reviewed as below * symptomatic treatment. Review of Systems - Review of Systems ENT: negative: Ear Pain, Ear Discharge, Nose Pain, Nose Discharge, Nose Congestion, Mouth Pain, Mouth Swelling, Throat Pain, Throat Swelling, Other Respiratory: negative: Cough, Dry, Shortness of Breath, Hemoptysis, SOB with Excertion, Pleuritic Pain, Sputum, Wheezing Cardiovascular: negative: chest pain, palpitations, orthopnea, paroxysmal nocturnal dyspnea, edema, light headedness, other Gastrointestinal: Abdominal Pain, Constipation. negative: Nausea, Vomiting, Diarrhea, Melena, Hematochezia, Other Genitourinary: negative: Dysuria, Frequency, Incontinence, Hematuria, Retention , Other Musculoskeletal: negative: Neck Pain, Shoulder Pain, Arm Pain, Back Pain, Hand Pain, Leg Pain, Foot Pain, Other Skin: negative: Rash, Lesions, Sloan, Bruising, Other - Medications/Allergies Allergies/Adverse Reactions: Allergies Allergy/AdvReac Type Severity Reaction Status Date / Time No Known Drug Allergies Allergy Verified 01/22/19 22:24 Medications: Current Medications Acetaminophen (Tylenol) 650 mg PO Q4H PRN PRN Reason: Headache/Fever/Mild Pain (1-3) Last Admin: 01/25/19 09:50 Dose: 650 mg Albuterol/Ipratropium (Duoneb) 3 ml NEB [id number] PRN PRN Reason: SOB &/or Wheezing Last Admin: 01/24/19 04:54 Dose: 3 ml Artificial Tears (Tears Naturale) 2 drop EA EYE PRN PRN PRN Reason: Dry Eyes Bisacodyl (Dulcolax) 10 mg [place] DAILYPRN PRN PRN Reason: Constipation Last Admin: 01/24/19 14:40 Dose: 10 mg Diphenhydramine HCl (Benadryl) 25 mg IVP Q4H PRN PRN Reason: Itching & Hives (mild) Last Admin: 01/24/19 06:30 Dose: 25 mg Enoxaparin Sodium (Lovenox) 40 mg SC 2100 CHACE Last Admin: 01/24/19 20:07 Dose: 40 mg Guaifenesin (Robitussin Sf) 200 mg PO Q4H PRN PRN Reason: Cough Hydralazine HCl (Apresoline) 10 mg SLOW IVP Q4H PRN PRN Reason: SBP > 180 and HR < 70 Hydroxyzine HCl (Atarax) 25 mg PO Q6H PRN PRN Reason: Itching Last Admin: 01/24/19 14:40 Dose: 25 mg Lactated Ringer's (Lactated Ringer's) 1,000 mls @ 120 mls/hr IV .Q8H20M [facility] [place] Last Admin: 01/25/19 04:07 Dose: 1,000 mls Loperamide HCl (Imodium) 2 mg PO PRN PRN PRN Reason: Diarrhea/Loose Stools Mineral Oil/White Petrolatum (Eucerin Cream) 0 gm TOP BIDPRN PRN PRN Reason: Dry Skin Morphine Sulfate (Morphine) 2 mg SLOW IVP Q4H PRN PRN Reason: Moderate to Severe Pain (6-10) Last Admin: 01/25/19 09:50 Dose: 2 mg Ondansetron HCl (Zofran Odt) 4 mg PO Q6H PRN PRN Reason: Nausea/Vomiting Ondansetron HCl (Zofran) 4 mg IVP Q6H PRN PRN Reason: Nausea/Vomiting Pantoprazole Sodium (Protonix) 40 mg IVP DAILY [facility] Last Admin: 01/25/19 08:04 Dose: 40 mg Senna/Docusate Sodium (Senokot S) 2 tab PO BID PRN PRN Reason: Constipation Last Admin: 01/24/19 20:07 Dose: 2 tab Sodium Chloride (Normal Saline Pf) 10 ml FS PRN PRN PRN Reason: RECONSTITUTION Last Admin: 01/25/19 08:04 Dose: 10 ml Sodium Chloride ([place] Nasal [place] 0.65%) 0 ml EA NARE QIDPRN PRN PRN Reason: Nasal Congestion Throat Lozenges (Cepastat Lozenges) 1 joselo PO Q2H PRN PRN Reason: Sore Throat Zolpidem Tartrate (Ambien) 5 mg PO HSPRN PRN PRN Reason: Insomnia
[2019-01-25] MEDS ORDERED: Fleet Enema 133 ML BOT PR SCH (11:30)
--- NOTE | 2019-01-25 12:33 | PRG ---
DATE OF SERVICE: 01/25/2019 SUBJECTIVE: Ms. Botello seems a little better. She has upper abdominal pain still. She complains that quite a bit. It feels that she has not had a bowel movement 3 days. She states she has just recently taken a laxative to see if that will help. Her daughter states that she does not want to go to [place] as her family cannot go there. This is regards to possible transfer there for her pancreatic mass. OBJECTIVE: VITAL SIGNS: Temperature is 98.6. She has been afebrile overnight. Pulse is 60, blood pressure 156/89. HEENT: She still icteric. LUNGS: Clear. HEART: Regular rate and rhythm. ABDOMEN: Soft. There is tenderness to palpation. There is no rebound. There is no guarding. EXTREMITIES: No clubbing, cyanosis, or edema. SKIN: Notable for some excoriations. LABORATORY DATA: White count 6.4, hemoglobin is 10.8, platelet count 225. Sodium 140, potassium 3.6. BUN and creatinine of 8 and 0.58. Bilirubin is 6 down from 7.1 yesterday and 15.9 on admission. AST is 57, down from 106 on admission and 66 yesterday. ALT is 105 down from 145 yesterday. Alkaline phosphatase is 430, down from 513 yesterday. Lipase is 104, CEA 6.24. CA-19-9 is mildly elevated at 45. Tox screen from 01/22 was positive for amphetamine, methamphetamine, and cocaine metabolites. Serology; hepatitis A, B, and C and HIV are negative. ASSESSMENT AND PLAN: 1. Ongoing abdominal pain. This may be related to some mild pancreatitis. Could be related to drug withdrawal. Pancreatitis, could be related to her pancreatic mass, could be related to ischemia from cocaine and meth, but she has a good appetite, continues to eat. Would monitor the lipase at this time. 2. With regard to the pancreatic mass, it is unclear if this is a neoplasia or if this is scarring from previous episodes of pancreatitis with the bile duct stricture. It is pretty prominent and although it could be postinflammatory. Concern for malignancy definitely is present. CA-19-9 is equivocally elevated and could be just from inflammation. It could be from malignancy. Ultimately, if the brushings of the bile duct are negative, she is probably going to need an EUS. Her daughter at the bedside states that she does not want to go to [place], and she will think about arranging that at [facility] on her own. 3. With regard to her biliary stent, I have informed her that will need to be changed in about 3 months. I have also explained to her that if we can get her transfer to a facility this admission that provides an EUS, I would be in her best interest to answer the question because if this was a malignancy, it could be dealt with more immediately. Awaiting 2 to 3 months to get repeat imaging done is not advisable with concern for pancreatic malignancy. 4. We will repeat labs tomorrow. Recheck her lipase tomorrow. If it is going up, we will need to make her n.p.o. and place her back on IV fluids. Otherwise, we will follow liver function tests and we will follow along with you. 5. It would be reasonable to consider some type of referral for substance abuse counseling. Job ID: [id number]
[2019-01-25] MEDS: hydrOXYzine 25 MG TAB PO PRN (16:45)
[2019-01-25] MEDS: Enoxaparin Sodium 40 MG/0.4 ML SYRINGE SC SCH (20:29)
[2019-01-25] MEDS ORDERED: Milk Of Magnesia 30 ML UDCUP PO PRN (21:16)
[2019-01-26] MEDS: Lactated Ringer's 1,000 ML IV SCH ×2 (00:22→08:14)
[2019-01-26] MEDS: Morphine 2 MG/ML SYRINGE SLOW IVP PRN (05:44)
[2019-01-26] MEDS: hydrOXYzine 25 MG TAB PO PRN (05:48)
[2019-01-26 06:39] LABS: #Basophils 0.1 thou/uL (0.0-0.2); #Eosinphils 0.1 thou/uL (0.0-0.7); #Lymphocytes 1.9 thou/uL (1.20-3.40); #Monocytes 0.6 thou/uL (0.11-0.59); #Neutrophils 3.5 thou/uL (1.40-6.50); %Basophils 1.3 % (0.0-1.0); %Eosinophils 1.8 % (0.0-10.0); %Lymphocytes 30.6 % (21.0-51.0); %Monocytes 9.7 % (0.0-10.0); %Neutrophils 56.6 % (42.0-75.0); Mean Corpuscular HGB CONC 32.1 g/dL (32.0-36.0); Mean Corpuscular Hemoglobin 31.3 pg (27.0-31.0); Mean Corpuscular Volume 97.5 fL (78.0-98.0); Mean Platelet Volume 11.1 fL (7.4-10.4); Platelet Count 234 thou/uL (130-400); RBC Distribution Width 14.6 % (11.5-14.5); Red Blood Cell (RBC) Count 3.52 mill/uL (4.20-5.40); White Blood Cell (WBC) Count 6.1 thou/uL (4.8-10.8)
[2019-01-26 07:06] LABS: ALT (SGPT) 94 U/L (8-55); AST (SGOT) 44 U/L (5-34); Albumin 3.1 g/dL (3.5-5.0); Alkaline Phosphatase 401 U/L (40-150); Anion Gap 13 mmol/L (10-20); BUN (Urea Nitrogen) 7 mg/dL (7.0-18.7); Bilirubin, Total 5.2 mg/dL (0.2-1.2); Calc. Creatinine Clearance 141 mL/min (70-130); Calcium 9.1 mg/dL (7.8-10.44); Carbon Dioxide 24 mmol/L (22-29); Chloride 104 mmol/L (98-107); Estimated GFR-MDRD Greater than 90; Globulin 3.5 g/dL (2.4-3.5); Glucose 201 mg/dL (70-105); Lipase 94 U/L (8-78); Potassium 3.9 mmol/L (3.5-5.1); Protein, Total 6.6 g/dL (6.0-8.3); Sodium 137 mmol/L (136-145)
[2019-01-26 07:43] VITALS: BP 120/79; TEMP 98.4
[2019-01-26] MEDS: Pantoprazole 40 MG VIAL IVP SCH (08:15)
--- NOTE | 2019-01-26 11:38 | DIS ---
DATE OF ADMISSION: 01/22/2019 DATE OF DISCHARGE: 01/26/2019 PRIMARY CARE PHYSICIAN: [facility] Call admission. DISCHARGE DISPOSITION: Home per patient request. PRIMARY DISCHARGE DIAGNOSES: 1. Obstructive jaundice due to pancreatic mass. 2. Abnormal LFTs due to problem #1. 3. Polysubstance abuse. SECONDARY DISCHARGE DIAGNOSES: Chronic obstructive pulmonary disease, gastroesophageal reflux disease, obesity with BMI 35, polysubstance abuse. PRIMARY PROCEDURE/OPERATION: The patient had ERCP by Dr. Harmon and sphincterotomy was performed. Stent was placed. RADIOLOGICAL INVESTIGATION: Abdomen MRI suspected pancreatic mass. Abdomen and pelvis CT scan also suspected biliary prominence and pancreatic mass. Chest x-ray was unremarkable. SIGNIFICANT LABORATORY DATA: WBC 6.1, hemoglobin 11.0, platelet 234. INR 1.0. Sodium 137, potassium 3.9, bilirubin 5.2, AST 44, ALT 94, alkaline phosphatase 401, albumin 3.1, lipase 94. CA 19-9 of 45 and carcinoembryonic antigen 6.24. Hepatitis and HIV negative. DISCHARGE MEDICATIONS: 1. Tylenol No.3 one or two tablets q.6 hourly p.r.n. for pain. 2. Atarax 25 mg t.i.d. p.r.n. 3. Protonix 40 mg p.o. daily. CONTRAINDICATION: None. CODE STATUS: Full code. INPATIENT CASH APPLICATIONS SPECIALIST: Dr. Harmon was following while in hospital. TEST RESULTS PENDING ON DISCHARGE: None. ALLERGIES: NO KNOWN DRUG ALLERGIES. DISCHARGE PLAN: Posthospital, the patient is instructed to follow up with Dr. Harmon for possible stent removal. The patient is also advised to follow up with higher level of care at [facility] for further evaluation and treatment for pancreatic mass. HOSPITAL COURSE: A 48-year-old female with above-mentioned medical problem, who was admitted by Dr. Moreau. Please see his H and P for further details. This patient was having abdominal pain and jaundice. The patient was evaluated in the emergency room with CT abdomen and pelvis which showed prominence of biliary and pancreatic duct and suspected for pancreatic mass. The patient underwent ERCP. Gastroenterology was involved in her care. ERCP with sphincterotomy was performed and stent was placed. The patient was having obstructive jaundice with significantly abnormal LFTs. After ERCP procedure, her LFTs were improving. We also did MRCP with abdominal MRI which suspected pancreatic mass. At this point, the patient has vague abdominal discomfort. She was also having constipation which was resolved with stool softener. The patient also had polysubstance abuse on admission with urine drug screen positive for multiple drugs and that is why we provided necessary patient counseling to avoid illicit drugs and outpatient rehabilitation was advised. During this admission, we also tried to transfer her to higher level of care for her pancreatic mass evaluation and treatment, but this patient completely refused their option and rather decided to be responsible for herself and she will take care of this problem as an outpatient basis by herself. She understands all consequences of her decision. At this point, biliary cytology which was brushed with ERCP procedure came back negative. She needs more evaluation. The patient is seen and examined at bedside today. Please see my progress note from today for further detail. Job ID: [id number]
== END 2019-01-26 12:38 | disposition home or self-care (01) | DRG 446 ==
LOC: ERS 20:08 → T4-A 22:11
PROVIDERS: ADMIT Emergency Medicine; ATTEND Emergency Medicine
PROC: 0F798DZ Dilation of Common Bile Duct with Intraluminal Device, Via Natural or Artificial Opening Endoscopic (ICD-10-PCS; principal; 2019-01-23)
PROC: 0FD98ZX Extraction of Common Bile Duct, Via Natural or Artificial Opening Endoscopic, Diagnostic (ICD-10-PCS; 2019-01-23)
DX: K83.1 Obstruction of bile duct (principal); K86.9 Disease of pancreas, unspecified; F10.20 Alcohol dependence, uncomplicated; J44.9 Chronic obstructive pulmonary disease, unspecified; F31.9 Bipolar disorder, unspecified; K21.9 Gastro-esophageal reflux disease without esophagitis; F15.10 Other stimulant abuse, uncomplicated; F14.10 Cocaine abuse, uncomplicated; L29.9 Pruritus, unspecified; K59.00 Constipation, unspecified; E66.9 Obesity, unspecified; Z68.35 Body mass index [BMI] 35.0-35.9, adult; Z79.899 Other long term (current) drug therapy
CPT/HCPCS: 36415; 74183; 74330; 80053; 80074; 82140; 82378; 83690; 85025; 85610; 85730; 86301; 87389; 88104; 88112; 94640; 99284; C9113; J1100; J1200; J1650; J1956; J2001; J2060; J2250; J2270; J2405; J2550; J2704; J3010; J7050; J7620; Q9961

== ENCOUNTER 2019-05-17 01:28 | Inpatient (IN) | payer SELFPAY ==
[2019-05-17] MEDS ORDERED: Ondansetron PF 4 MG/2 ML Vial ONE ×2 (01:43→10:23)
[2019-05-17] MEDS ORDERED: Morphine 4 MG/ML VIAL ONE (01:43)
[2019-05-17 02:03] LABS: #Lymphocytes 1.1 thou/uL (1.20-3.40); #Monocytes 0.2 thou/uL (0.11-0.59); #Neutrophils 8.1 thou/uL (1.40-6.50); %Basophils 0.5 % (0.0-1.0); %Eosinophils 0.4 % (0.0-10.0); %Lymphocytes 11.4 % (21.0-51.0); %Monocytes 1.6 % (0.0-10.0); %Neutrophils 86.1 % (42.0-75.0); Hemoglobin 14.7 g/dL (12.0-16.0); Mean Corpuscular HGB CONC 33.1 g/dL (32.0-36.0); Mean Corpuscular Hemoglobin 30.2 pg (27.0-31.0); Mean Corpuscular Volume 91.2 fL (78.0-98.0); Mean Platelet Volume 9.3 fL (7.4-10.4); Platelet Count 231 thou/uL (130-400); RBC Distribution Width 13.1 % (11.5-14.5); Red Blood Cell (RBC) Count 4.87 mill/uL (4.20-5.40); White Blood Cell (WBC) Count 9.4 thou/uL (4.8-10.8)
[2019-05-17] MEDS ORDERED: Fentanyl 100 MCG/2 ML VIAL ONE ×2 (02:18→03:55)
[2019-05-17 02:22] LABS: ALT (SGPT) 87 U/L (8-55); AST (SGOT) 140 U/L (5-34); Alkaline Phosphatase 125 U/L (40-150); Anion Gap 12 mmol/L (10-20); BUN (Urea Nitrogen) 12 mg/dL (7.0-18.7); Bilirubin, Total 1.3 mg/dL (0.2-1.2); Calc. Creatinine Clearance 0 mL/min (70-130); Calcium 9.5 mg/dL (7.8-10.44); Carbon Dioxide 25 mmol/L (22-29); Chloride 108 mmol/L (98-107); Estimated GFR-MDRD Greater than 90; Globulin 3.3 g/dL (2.4-3.5); Glucose 115 mg/dL (70-105); Lipase 25 U/L (8-78); Protein, Total 7.3 g/dL (6.0-8.3); Sodium 142 mmol/L (136-145)
[2019-05-17 02:29] LABS: Potassium 2.7 mmol/L (3.5-5.1)
[2019-05-17] MEDS ORDERED: Ondansetron PF 4 MG/2 ML Vial IVP PRN (05:10)
[2019-05-17] MEDS ORDERED: Ondansetron ODT 4 MG TAB SL PRN (05:10)
[2019-05-17] MEDS: Potassium Chloride 10 MEQ in Premix Bag 1 BAG IVPB SCH ×3 (05:28→07:59)
[2019-05-17] MEDS: Morphine 4 MG/ML VIAL SLOW IVP PRN ×4 (05:28→17:06)
[2019-05-17 05:34] VITALS: BMI 30.4
[2019-05-17] MEDS ORDERED: Ketorolac Tromethamine 30 MG/ML VIAL IVP PRN (05:40)
--- NOTE | 2019-05-17 08:18 | CT ---
PRELIMINARY REPORT/[facility]/EMERGENCY AFTER HOURS PROCEDURE: EXAM: CT Abdomen and Pelvis With Contrast EXAM DATE/TIME: 05/17/2019 2:27 AM CLINICAL HISTORY: 48 years old, female; Abdominal pain; Localized; Upper; Prior surgery; Patient HX: 48 y/o F, with h/o pancreatitis, pancreatic mass, and chronic abd pain, presents to ED via EMS transport C/O worsening abd pain at 2000 last night. PT currently has prophylactic pancreatic duct stent in place s cheduled to be removed in 3 days TECHNIQUE: Imaging protocol: Computed tomography of the abdomen and pelvis with intravenous contrast. COMPARISON: No relevant prior studies available. FINDINGS: Liver: Normal. No mass. Gallbladder and bile ducts: Severe intra-and extrahepatic biliary ductal dilatation with compression of the common bile to the point that it is imperceptible as it courses through the pancreas aside from the biliary stent that is in place. Pneumobilia, expected with the biliary stent. No evidence of cholecystitis. Pancreas: There is a pancreatic head/neck mass, suspicious for pancreatic adenocarcinoma. Distal to t his there is diffuse pancreatic ductal dilatation. Spleen: Normal. No splenomegaly. Adrenals: Normal. No mass. Kidneys and ureters: Normal. No hydronephrosis. Stomach and bowel: No bowel wall thickening or intestinal obstruction. Mild thickening of the wall of the cecum and proximal ascending colon is very likely due to the underdistended state of the colon. Colitis less likely but not excluded. Appendix: Normal appendix. Intraperitoneal space: Unremarkable. No free air. No significant fluid collection. Vasculature: Unremarkable. No abdominal aortic aneurysm. Lymph nodes: Unremarkable. No enlarged lymph nodes. Bladder: Unremarkable as visualized. Reproductive: Unremarkable as visualized. Bones/joints: Unremarkable. No acute fracture. Soft tissues: Unremarkable. IMPRESSION: 1. There is a pancreatic head/neck mass, suspicious for pancreatic adenocarcinoma. Distal to this there is diffuse pancreatic ductal dilatation. 2. Severe intra-and extrahepatic biliary ductal dilatation with compression of the common bile to the point that it is imperceptible as it courses through the pancreas aside from the biliary stent that i s in place. 3. Mild thickening of the wall of the cecum and proximal ascending colon is very likely due to the underdistended state of the colon. Colitis less likely but not excluded. Thank you for allowing us to participate in the care of your patient. Dictated and Authenticated by: Som Rachel MD 05/17/2019 3:17 AM Central Time ([place] & [place]) FINAL REPORT: CT ABDOMEN AND PELVIS WITH IV CONTRAST: PROVIDED CLINICAL HISTORY: Abdominal pain COMPARISON: 01/22/2019 FINDINGS/IMPRESSION: Agree with the preliminary interpretation given by ISATU. When compared with the prior examination, th ere is been interval placement of a common duct stent with associated pneumobilia. The degree of intrahepatic biliary ductal dilatation is similar. The previously described pancreatic head mass appe ars larger and less well-defined on the current examination. Transcribed Date/Time: 05/17/2019 8:23 AM
[2019-05-17] MEDS ORDERED: Lorazepam 2 MG/ML VIAL SLOW IVP PRN (09:37)
[2019-05-17] MEDS ORDERED: Sodium Chloride 0.9% (PF) 10 ML VIAL FS PRN (09:53)
[2019-05-17] MEDS ORDERED: PHENYLEPHRINE-NS 100 MCG/ML 10 ML SYRINGE ONE (10:23)
[2019-05-17] MEDS ORDERED: PROPOFOL 200 MG/20 ML VIAL ONE (10:23)
[2019-05-17] MEDS ORDERED: Succinylcholine Chloride 20 MG/ML 10 ml SYRINGE FS ONE (10:23)
[2019-05-17] MEDS ORDERED: Lidocaine 1% PF 5 ML VIAL ONE (10:23)
[2019-05-17] MEDS ORDERED: ePHEDrine 50 MG/ML VIAL ONE (10:23)
[2019-05-17] MEDS ORDERED: Rocuronium Bromide 10 MG/ML (10ML VIAL) ONE (10:23)
[2019-05-17] MEDS ORDERED: Dexamethasone 20 MG/5 ML VIAL ONE (10:23)
[2019-05-17] MEDS ORDERED: ISOVUE-370 76%-LOCM 1 ML ONE (10:32)
--- NOTE | 2019-05-17 11:44 | CON ---
DATE OF CONSULTATION: 05/17/2019 REQUESTING PHYSICIAN: Hiro Moreau MD REASON FOR CONSULTATION: Pancreatic mass. HISTORY OF PRESENT ILLNESS: Dinorah Botello is a 48-year-old woman. She was seen previously by my colleague, Dr. Santosh Harmon in January 2019. She has a long history of substance abuse and drug dependence evidently back in September 2018. She presented with a pancreatic mass in [place] as well as biliary stricture. She did not follow up at that time. She continued to drink alcohol. She presented here in January with biliary obstruction. Total bilirubin up to 15. CT and MRI imaging demonstrated a mass in the head of the pancreas concerning for possible pancreatic adenocarcinoma as well as massive intra and extrahepatic biliary dilation and pancreatic ductal dilation. Lab showed elevations in CEA to 6.24 and CA-19-[address] Harmon performed ERCP on 01/23/2019 and this demonstrated a 3-cm stricture in the distal common bile duct with massive proximal biliary dilation. He performed a sphincterotomy. He brushed the stricture and he placed 11.5-Bulgarian x 5 cm stent across the stricture with good drainage. The patient's LFTs declined. She had some symptomatic improvement. The brushings came back showing some atypical cells, but nondiagnostic for malignancy. Dr. Harmon had recommended transfer to a tertiary center for endoscopic ultrasound and FNA for definitive diagnosis and further care, but the patient declined this, requested discharge from the hospital, and basically failed to follow up with anybody until now. She states that for the past couple of months, she has had slowly escalating abdominal pain. It became unbearable last night and that prompted her presentation. She had failed to follow up with Dr. Harmon for biliary stent exchange and this was scheduled for mid next week. Her CT scan shows pancreatic head and neck mass suspicious for pancreatic adenocarcinoma with diffuse pancreatic duct dilation and severe intra and extrahepatic biliary dilation with compression of the common bile duct aside from the biliary stent that is in place. The patient is hemodynamically stable. Lipase is actually normal. LFTs show only mild elevation with total bilirubin 1.3, AST 140, ALT 87. The patient has been drinking alcohol recently. She is receiving Toradol and morphine for pain. She is now willing to undergo any further workup felt necessary. PAST MEDICAL HISTORY: COPD, pancreatic mass diagnosed in September 2018, ERCP with biliary stent placement in January 2019, drug abuse, bipolar disorder, and tubal ligation. FAMILY HISTORY: Her mother had coronary artery disease. SOCIAL HISTORY: The patient has been heavy drinker for about 30 years. Alcohol use continues, though she has cut back recently. She also has a history of recent drug abuse including crack, cocaine, and methamphetamine. ALLERGIES: NO KNOWN DRUG ALLERGIES. OUTPATIENT MEDICATIONS: None. REVIEW OF SYSTEMS: Full review of systems including constitutional, head, eyes, ears, nose, throat, GI, , cardiovascular, respiratory, musculoskeletal, neurologic systems is negative except as noted in the HPI. PHYSICAL EXAMINATION: VITAL SIGNS: Temperature 97.7, pulse 90, blood pressure 129/87, and oxygen saturation 96% on room air. GENERAL: A 48-year-old woman in moderate distress from abdominal pain. SKIN: No jaundice. No rashes were palpable. EYES: No scleral icterus. Extraocular movements intact. ENT: Mucous membranes moist. No oral lesions. LYMPH: No submandibular or supraclavicular lymphadenopathy. THYROID: Nontender to palpation. HEART: Regular rate and rhythm. LUNGS: Clear to auscultation bilaterally. ABDOMEN: Bowel sounds are present, but hypoactive. The abdomen is soft, diffusely tender to palpation, particularly in the epigastrium, but no guarding or rebound tenderness. EXTREMITIES: No peripheral edema. VESSELS: Radial pulses 2+ bilaterally. NEURO: Cranial nerves II through XII intact bilaterally. No focal deficits. LABORATORY STUDIES: WBC 9.4, hemoglobin 14.7, and platelets 231. Sodium 142, potassium 2.7, BUN 12, creatinine 0.68, total bilirubin 1.3, alkaline phosphatase 125, AST 140, ALT 87, albumin 4.0. Lipase only 25. From prior admission in January, CEA was elevated at 6.24 and CA-19-9 was elevated to 45. IMAGING STUDIES: CT of the abdomen and pelvis demonstrates severe intra and extrahepatic biliary dilation with compression of the common bile duct to the point that it is imperceptible as it courses through the pancreas aside from the biliary stent that is in place. There is pneumobilia, which is expected with biliary stent. No evidence of cholecystitis. There is a pancreatic head and neck mass suspicious for pancreatic adenocarcinoma with distal diffuse pancreatic ductal dilation. There is no splenomegaly. ASSESSMENT AND PLAN: 1. Pancreatic mass, likely representing adenocarcinoma, without definitive diagnosis yet. 2. Biliary obstruction, status post endoscopic retrograde cholangiopancreatography with biliary stent placed in January 2019. 3. History of drug abuse. 4. History of noncompliance. I had a long discussion with the patient with Dr. Moreau. This is a difficult situation. She very likely has pancreatic adenocarcinoma, but failed to follow up for definitive diagnosis and therapy for the past 6 months at least. Overall, this is a poor prognosis. Again, the diagnosis is not yet confirmed histologically and this is going to be necessary if she is going to undergo any treatment. She is indeed due for stent replacement, but on the other hand, there is no urgency to this as I see no evidence of cholangitis. Repeat ERCP would be better performed at a tertiary center in conjunction with endoscopic ultrasound for possible FNA and tissue diagnosis of this pancreatic mass. I would recommend transfer to a tertiary center with EUS capability. In the meantime, continue supportive care and pain control. Thank you for the consultation. Please call anytime with questions or concerns. Job ID: [id number]
--- NOTE | 2019-05-17 12:29 | HP ---
CHIEF COMPLAINT: Abdominal pain. HISTORY OF PRESENT ILLNESS: This patient is a 48-year-old female, with a history of chronic alcoholism for several decades. She was drinking up to 30 beers per day. She was originally admitted in [place] in September, where she was diagnosed with pancreatitis and a pancreatic mass. She did not follow up in [place] and stayed off alcohol for about 2 weeks and started drinking again. She was subsequently admitted to this facility on January 22 with recurrence of abdominal pain. At that time, the patient had evidence of biliary obstruction and pancreatic mass suspicious for malignancy that was 1.5 cm in the uncinate process of the pancreas. She was seen by Gastroenterology and had a duct stent placed. She was noted to be positive on her drug screen for cocaine and methamphetamine at that time. She had negative HIV and hepatitis workup. Her CA-19-9 was elevated at 45 and CEA at 6.24. She was supposed to follow up as an outpatient with GI. However, she reported that she did not follow up and was on a safe-based plan and was essentially waiting for God to take the tumor away. She has continued to use some modest amount of alcohol, but it is too problematic for her now because of the pain and she is admitted to using some drugs again as well. She presented to our facility with severe abdominal pain, which she states is generally constant, but rather than just being in a band-like distribution around her upper abdomen. It now feels like it is in her back, in her chest, and more of her abdomen and it is the worst pain she has ever felt in her life. She has had diarrhea for about a week as well and she reports that she recently got a prescription of her omeprazole and feel that looked different than her previous pills and she is wondering if perhaps it was incorrect prescription that might have tipped her over the edge. She continues to be very emotional. She is remorseful about not having followed up, been going back to the alcohol and drugs. She says her mental state has deteriorated substantially dealing with the chronic pain that she is in and she is presently willing to do anything or go anywhere that we need her to in order to try to get this addressed because she can no longer live with the level of pain that she is experiencing. REVIEW OF SYSTEMS: The patient reports that she has had some worsening pain and stiffness in the joints of her fingers and hands and that occasionally her fingers will not fully open. She has poor appetite related to the abdominal pain, but feels thirsty. All other systems reviewed. All pertinent positives and negatives noted in the history of present illness. PAST MEDICAL HISTORY: Notable for COPD, pancreatic mass, pancreatitis, bipolar disorder, and gastroesophageal reflux. PAST SURGICAL HISTORY: Tubal ligation and biliary stent. FAMILY HISTORY: Mother has coronary artery disease and a history of an MA, diabetes, and hypertension. She is unaware of her father's family history as she does not know him. SOCIAL HISTORY: The patient again has the history of the heavy alcohol abuse. She quit the heavy usage initially in September after her initial diagnosis, but went back to that for a period of time and she has history of substance abuse including cocaine and methamphetamine, which appears to be ongoing. She is undecided on her code status in the past. She has been DNAR, but she is not sure at this point. She would like her mother, Danette Collins, to be her surrogate decision maker and she would specifically like to ensure that her daughter, Sumi Botello, is not in line to be a surrogate decision maker for her as she believes her mental status is not such that she could function in that capacity to the patient's desired level. ALLERGIES: NONE. HOME MEDICATIONS: 1. Atarax 25 mg t.i.d. 2. Protonix 40 mg daily. 3. Tylenol No. 3 p.r.n. PHYSICAL EXAMINATION: VITAL SIGNS: Temperature is 97.7, pulse 90, respirations 24, O2 saturation 96% on room air, and blood pressure 129/87. GENERAL APPEARANCE: Age-appropriate female. She is very tearful, but awake and alert, very pleasant. HEENT: PERRL. No OP lesions. Dry oral mucosa. NECK: Supple and symmetric. HEART: Regular rate and rhythm without murmurs, gallops, or rubs. LUNGS: Clear bilaterally. She has a bit of a grunt with her breathing, which is possibly related to her discomfort, but otherwise no significant rales or wheezes. ABDOMEN: Exquisitely tender across the upper abdomen, less so in the lower abdomen. She has diminished bowel sounds. No masses or organomegaly. EXTREMITIES: No cyanosis, clubbing, or edema. PSYCH: Again, the patient is very emotional and tearful and grateful that she is not being harshly judged. NEUROLOGICAL: She appears to be fully intact. MUSCULOSKELETAL: She does have some hypertrophic osteoarthropathy of the joints of her fingers, most consistent with osteoarthritis. LABORATORY DATA: White count 9.4, hemoglobin 14.7, and platelets 231. Sodium 142, potassium 2.7, chloride 108, CO2 of 25, BUN 12, creatinine 0.68, glucose 115, total bili 1.3, AST 140, ALT 87, and alkaline phosphatase 125. Lipase 25. IMAGING DATA: CT of the abdomen and pelvis shows pancreatic head and neck mass suspicious for pancreatic adenocarcinoma. Distal to this, there is diffuse pancreatic ductal dilatation. There is severe intra and extrahepatic biliary ductal dilatation with compression of the common bile duct to the point that it is imperceptible as it courses through the pancreas aside from the biliary stent that is in place. There is thickening of the wall of the cecum and proximal ascending colon, likely due to the underdistended state of the colon. IMPRESSION AND PLAN: 1. Recurrent pancreatitis. Pain Management. 2. Pancreatic mass. The patient had this originally diagnosed in September. She needs an endoscopic ultrasound-guided biopsy and likely stent replacement. She is willing to be transferred down to a facility where this can be accomplished as she was not back in January. I have discussed with Dr. Mckinney's, our GI physician here and we will work toward getting the patient transferred. She does not appear to have acute cholangitis and therefore as long we manage her pain does not appear to be emergent and she can go by ground transport to a floor bed. 3. History of drug abuse. We will check a drug screen just to see what she might have in her system. 4. History of bipolar disorder. She is on no medications, appears to be fairly stable other than very emotional at the moment. 5. History of chronic obstructive pulmonary disease, stable. We will provide p.r.n. nebulizer treatments. 6. Hypokalemia, receiving IV supplementation now. We will recheck. 7. Reflux. Continue on a PPI. 8. History of alcohol abuse. We will provide p.r.n. benzodiazepines. 9. Elevated liver enzymes due to the obstruction. They are actually better than they were back in January, where they were over 400. Job ID: [id number]
[2019-05-17] MEDS ORDERED: Pantoprazole 40 MG VIAL IVP SCH (14:00)
[2019-05-17 14:12] LABS: Amphetamine Not Detected (NotDetected); Barbiturates Screen Not Detected (NotDetected); Benzodiazepine Screen Not Detected (NotDetected); Cocaine Metabolite Screen Detected (NotDetected); Medtox Control Line Valid? VALID (VALID); Medtox Reader # READER 4; Methadone Not Detected (NotDetected); Methamphetamine Detected (NotDetected); Opiate Screen Detected (NotDetected); Oxycodone Screen Not Detected (NotDetected); Phencyclidine (PCP) Not Detected (NotDetected); THC/Cannabinoid Screen Not Detected (NotDetected); Tricyclic Screen Not Detected (NotDetected)
[2019-05-17] MEDS: Ketorolac Tromethamine 30 MG/ML VIAL IVP PRN (14:41)
[2019-05-17] MEDS ORDERED: Acetaminophen 325 MG TAB PO PRN (19:03)
--- NOTE | 2019-05-17 19:05 | RAD ---
EXAM: Single view of the chest HISTORY: Fever COMPARISON: 01/07/2019 FINDINGS: Single view of the chest shows a normal sized cardiomediastinal silhouette. There is a sta ble calcified granuloma in the right upper lobe. There is no evidence of consolidation or pleural effusion. The bones are unremarkable. IMPRESSION: No evidence of acute cardiopulmonary disease
[2019-05-17] MEDS: Pantoprazole 40 MG VIAL IVP SCH (19:10)
[2019-05-17] MEDS ORDERED: metroNIDAZOLE 500 MG in Premix Bag 1 BAG IVPB SCH (19:15)
[2019-05-17] MEDS ORDERED: Iothalamate Meglumine 60% 50 ML VIAL FS ONE (19:43)
--- NOTE | 2019-05-17 20:58 | RAD ---
EXAM: ERCP HISTORY: Cholelithiasis COMPARISON: None FINDINGS: Limited intraoperative fluoroscopic views were taken during a an ERCP. There appear to be multiple small filling defects within the common bile duct on the initial image. A biliary stent is placed on the second image. No leakage from the common bile duct. No abnormality of the intrahepatic bile ducts. IMPRESSION: Status post stent placement in the common bile duct.
[2019-05-17] MEDS ORDERED: Promethazine HCl 25 MG/ML VIAL IM PRN (21:00)
[2019-05-17] MEDS ORDERED: HYDROmorphone 2 MG/ML VIAL SLOW IVP PRN (21:00)
[2019-05-17] MEDS ORDERED: PACU-Morphine 4MG/ML VIAL SLOW IVP PRN (21:00)
[2019-05-17] MEDS ORDERED: Promethazine HCl 25 MG/ML VIAL SLOW IVP PRN (21:00)
[2019-05-17] MEDS ORDERED: Morphine Sulfate 2 MG/ML SYRINGE SLOW IVP PRN (21:00)
[2019-05-17] MEDS ORDERED: Ondansetron HCl/PF 4 MG/2 ML Vial IVP PRN (21:00)
[2019-05-17] MEDS ORDERED: Meperidine HCl/PF 25 MG/ML VIAL SLOW IVP PRN (21:00)
--- NOTE | 2019-05-17 22:14 | OP ---
DATE OF PROCEDURE: 05/17/2019 INDEPENDENT AGENT MUSIC EDUCATION SURGEON: None. PROCEDURES PERFORMED: ERCP with biliary stent exchange. INDICATION: 48-year-old woman with pancreatic head mass suspicious for pancreatic adenocarcinoma and associated biliary stricture, who underwent biliary stent placement in January 2019, now presenting with abdominal pain, elevated LFTs, and fevers, all concerning for stent occlusion with cholangitis. MEDICATION: See Anesthesia record. FINDINGS: After discussion of the risks, benefits, and alternatives of the procedure, informed consent was obtained and witnessed. Pre-endoscopic cardiopulmonary examination was satisfactory. Time-out was performed before sedation was achieved. Sedation was achieved with Anesthesia assistance in the endoscopy unit. The patient was placed in a semiprone position on the fluoroscopy table. A Pentax adult side-viewing duodenoscope was inserted into the mouth and passed forward past the esophagus and stomach and into the second portion of the duodenum under direct visualization. The ampulla was brought into view. There was an old plastic biliary stent protruding from the ampulla in the expected position. There was no free flow of bile seen from this stent. A snare was used to grasp the stent and gently remove it from the bile duct and out of the patient's mouth. The endoscope was then passed back down the mouth to the second portion of the duodenum. There was no free flow of bile seen from the ampulla, though there was evidence of prior sphincterotomy. Using a triple lumen dome-tipped sphincterotome and a 0.035 guidewire, we were able to selectively cannulate the common bile duct without difficulty. The cholangiogram was performed. This again demonstrated an approximately 3 cm distal biliary stricture with proximal dilation of the common bile duct above the stricture. There are some hazy opacities within the common bile duct, felt to likely represent pus and/or blood clots. A new 11.5-German x 7 cm dual flanged straight plastic stent was then placed across the stricture into the common bile duct with the distal end protruding out of the ampulla. Following stent deployment, there was free flow of bile, contrast, some pus, and some blood clots from the stent. Using the sphincterotome and passing it through the new stent, we aggressively irrigated the biliary tree with sterile water, and in this fashion, some more pus and blood clots came out. At this point, the working apparatus was completely withdrawn. The endoscope was completely withdrawn suctioning out excess air and fluid. Postprocedure fluoroscopic images demonstrated no retroperitoneal or subdiaphragmatic free air. The procedure was complete. The patient tolerated the procedure well. There were no immediate postprocedure complications. IMPRESSION: 1. Occluded old plastic biliary stent, now removed. 2. Approximately 3 mm distal biliary stricture with dilated proximal common bile duct and hazy opacities within the dilated common bile duct. 3. Successful placement of new 7 cm x 11.5-German plastic stent to the common bile duct across the distal biliary stricture, with free flow of blood clots and pus flowing out after stent placement. RECOMMENDATIONS: 1. Continue antibiotics. 2. Advance diet as tolerated. 3. Continue to work on hospital transfer for endoscopic ultrasound. Job ID: [id number]
[2019-05-18] MEDS: Ketorolac Tromethamine 30 MG/ML VIAL IVP PRN ×2 (01:47→08:51)
[2019-05-18] MEDS: Pantoprazole 40 MG VIAL IVP SCH ×2 (07:37→20:58)
[2019-05-18 08:25] LABS: #Lymphocytes 0.7 thou/uL (1.20-3.40); #Monocytes 0.3 thou/uL (0.11-0.59); #Neutrophils 13.3 thou/uL (1.40-6.50); %Eosinophils 0.1 % (0.0-10.0); %Lymphocytes 4.8 % (21.0-51.0); %Monocytes 2.3 % (0.0-10.0); %Neutrophils 92.8 % (42.0-75.0); Hemoglobin 13.2 g/dL (12.0-16.0); Mean Corpuscular HGB CONC 31.9 g/dL (32.0-36.0); Mean Corpuscular Volume 94.1 fL (78.0-98.0); Mean Platelet Volume 10.4 fL (7.4-10.4); Platelet Count 142 thou/uL (130-400); RBC Distribution Width 13.6 % (11.5-14.5); White Blood Cell (WBC) Count 14.4 thou/uL (4.8-10.8)
--- NOTE | 2019-05-18 11:20 | PDOC.HOSPP ---
- Subjective Encounter Date: 05/18/19 Encounter Time: 11:19 - Objective Vital Signs & Weight: Vital Signs (12 hours) Temp Pulse Resp BP BP Pulse Ox 05/18/19 08:03 98.0 F 68 20 103/73 97 05/18/19 04:09 98.7 F 87 20 91/58 L 96 05/17/19 23:23 97.2 F L 93 20 97/69 97 Weight Admit Weight 166 lb 1.6 oz Weight 166 lb 1.6 oz Result Diagrams: 05/18/19 08:02 05/17/19 01:53 Hospitalist ROS - Medication Medications: Active Medications Generic Name Dose Route Start Last Admin Trade Name Freq PRN Reason Stop Dose Admin Acetaminophen 650 mg 05/17/19 19:03 05/17/19 19:21 Tylenol PO 650 mg Q6H PRN Administration Headache/Fever or Pain Levofloxacin 500 mg/ Device 100 mls @ 100 mls/hr 05/18/19 07:30 05/18/19 07: 37 IVPB 100 mls Q24HR CHACE Administration Ketorolac Tromethamine 30 mg 05/17/19 14:25 05/18/19 08:51 Toradol IVP 05/22/19 14:26 30 mg Q6H PRN Administration Pain Morphine Sulfate 4 mg 05/17/19 09:38 05/17/19 17:06 Morphine SLOW IVP 4 mg Q4H PRN Administration Moderate to Severe Pain (6-10) Pantoprazole Sodium 40 mg 05/17/19 21:00 05/18/19 07:37 Protonix IVP 40 mg Q12HR CHACE Administration - Exam General Appearance: NAD, awake alert Heart: RRR, no murmur, no gallops, no rubs, normal peripheral pulses Respiratory: CTAB, no wheezes, no rales, no ronchi, normal chest expansion, no tachypnea, normal percussion Gastrointestinal: soft, non-distended, normal bowel sounds, tender to palpation Extremities: no cyanosis, no clubbing, no edema Musculoskeletal: normal tone, normal strength Hosp A/P (1) Pancreatic mass Status: Acute (2) Cholangitis Code(s): K83.09 - OTHER CHOLANGITIS Status: Acute (3) Biliary obstruction Status: Acute (4) Abnormal LFTs Code(s): R94.5 - ABNORMAL RESULTS OF LIVER FUNCTION STUDIES Status: Acute (5) COPD (chronic obstructive pulmonary disease) Status: Chronic (6) Polysubstance abuse Code(s): F19.10 - OTHER PSYCHOACTIVE SUBSTANCE ABUSE, UNCOMPLICATED Status: Chronic - Plan She spiked a fever last night. I made Dr. Mckinney aware and he performed EGD with stent removal and replacement. There was resultant purulence and blood clot passage. Patient reports that her pain was 80% improved when the procedure was over. Still has some pain, but better than yesterday. Transfer center still has the patient on for tomorrow. Suspect she will be able to go home after her EUS biopsy with po abx. She can follow up at [facility]. Continue IV Levaquin and Flagyl.
--- NOTE | 2019-05-18 11:20 | PRG ---
DATE OF SERVICE: 05/18/2019 SUBJECTIVE: Ms. Botello spiked high fever yesterday evening, so we took her for urgent ERCP. Her biliary stent was indeed occluded and I performed stent exchange with washout of some pus and blood clots from the bile duct. I placed a 7 cm x 11.5-Tajik stent across her likely malignant biliary stricture. Her fever resolved and has not recurred this morning. She has been more hemodynamically stable. She states her pain has significantly improved as well, though it does persist. OBJECTIVE: VITAL SIGNS: Temperature 98.0, pulse 68, blood pressure 103/73, and 97% oxygen saturation on room air. GENERAL: No acute distress. HEART: Regular rate and rhythm. LUNGS: Clear to auscultation bilaterally. ABDOMEN: Still some tenderness to palpation in the upper abdomen, but no guarding or rebound tenderness today. EXTREMITIES: No peripheral edema. LABORATORY STUDIES: WBC is 14.4, hemoglobin 13.2, platelets 142. Sodium 142, potassium 2.7, BUN 12, creatinine 0.68. CMP from this morning is still pending. ASSESSMENT AND PLAN: 1. Tight biliary stricture, likely malignant, now status post exchange of occluded biliary stent yesterday evening. 2. Cholangitis, clinically improved after stent exchange last night, currently on antibiotics. Please continue antibiotics. 3. Likely pancreatic adenocarcinoma. She has a pancreatic mass on imaging, this is likely malignant. Need definitive diagnosis for planning therapy. I understand that arrangements have been made to transfer her to a tertiary center for endoscopic ultrasound. Job ID: [id number]
[2019-05-18 12:28] LABS: ALT (SGPT) 108 U/L (8-55); AST (SGOT) 71 U/L (5-34); Albumin 3.4 g/dL (3.5-5.0); Alkaline Phosphatase 142 U/L (40-150); Anion Gap 12 mmol/L (10-20); BUN (Urea Nitrogen) 22 mg/dL (7.0-18.7); Calc. Creatinine Clearance 116 mL/min (70-130); Calcium 9.1 mg/dL (7.8-10.44); Carbon Dioxide 23 mmol/L (22-29); Chloride 103 mmol/L (98-107); Estimated GFR-MDRD 89; Globulin 3.1 g/dL (2.4-3.5); Glucose 173 mg/dL (70-105); Potassium 3.1 mmol/L (3.5-5.1); Protein, Total 6.5 g/dL (6.0-8.3); Sodium 135 mmol/L (136-145)
[2019-05-18] MEDS: Morphine 4 MG/ML VIAL SLOW IVP PRN ×2 (13:11→21:32)
[2019-05-18] MEDS: metroNIDAZOLE 500 MG in Premix Bag 1 BAG IVPB SCH ×2 (13:12→20:58)
[2019-05-19] MEDS: Ketorolac Tromethamine 30 MG/ML VIAL IVP PRN (04:33)
[2019-05-19] MEDS: Morphine 4 MG/ML VIAL SLOW IVP PRN ×3 (05:03→15:55)
[2019-05-19] MEDS: metroNIDAZOLE 500 MG in Premix Bag 1 BAG IVPB SCH ×2 (05:04→14:59)
[2019-05-19 07:18] LABS: ALT (SGPT) 67 U/L (8-55); AST (SGOT) 28 U/L (5-34); Albumin 2.8 g/dL (3.5-5.0); Alkaline Phosphatase 112 U/L (40-150); Anion Gap 11 mmol/L (10-20); BUN (Urea Nitrogen) 17 mg/dL (7.0-18.7); Bilirubin, Total 0.7 mg/dL (0.2-1.2); Calc. Creatinine Clearance 135 mL/min (70-130); Calcium 8.5 mg/dL (7.8-10.44); Carbon Dioxide 24 mmol/L (22-29); Chloride 105 mmol/L (98-107); Estimated GFR-MDRD Greater than 90; Globulin 2.6 g/dL (2.4-3.5); Glucose 154 mg/dL (70-105); Protein, Total 5.4 g/dL (6.0-8.3); Sodium 137 mmol/L (136-145)
[2019-05-19 07:20] LABS: #Eosinphils 0.1 thou/uL (0.0-0.7); #Lymphocytes 1.2 thou/uL (1.20-3.40); #Monocytes 0.5 thou/uL (0.11-0.59); #Neutrophils 8.7 thou/uL (1.40-6.50); %Basophils 0.1 % (0.0-1.0); %Eosinophils 0.5 % (0.0-10.0); %Lymphocytes 11.6 % (21.0-51.0); %Monocytes 4.9 % (0.0-10.0); Hemoglobin 11.9 g/dL (12.0-16.0); Mean Corpuscular HGB CONC 33.3 g/dL (32.0-36.0); Mean Corpuscular Hemoglobin 29.9 pg (27.0-31.0); Mean Corpuscular Volume 89.7 fL (78.0-98.0); Mean Platelet Volume 10.4 fL (7.4-10.4); Platelet Count 111 thou/uL (130-400); RBC Distribution Width 13.2 % (11.5-14.5); Red Blood Cell (RBC) Count 3.99 mill/uL (4.20-5.40); White Blood Cell (WBC) Count 10.4 thou/uL (4.8-10.8)
[2019-05-19 07:25] LABS: Potassium 2.8 mmol/L (3.5-5.1)
[2019-05-19] MEDS ORDERED: Potassium Chloride 20 MEQ TAB PO SCH (07:45)
[2019-05-19] MEDS ORDERED: Potassium Chloride 40 MEQ in Premix Bag 1 BAG IVPB SCH (07:45)
[2019-05-19] MEDS: Pantoprazole 40 MG VIAL IVP SCH (07:51)
[2019-05-19] MEDS: Potassium Chloride 20 MEQ in Premix Bag 1 BAG IVPB SCH ×2 (07:53→11:30)
[2019-05-19 08:03] LABS: Platelet Morphology Comment Appears Decreased
[2019-05-19 16:16] VITALS: BP 127/77; TEMP 98.7
== END 2019-05-19 16:26 | disposition short-term general hospital (02) | DRG 435 ==
LOC: ERS 01:28 → T4-B 05:00
PROVIDERS: ADMIT Hospitalist; ATTEND Hospitalist
PROC: 0FPB8DZ Removal of Intraluminal Device from Hepatobiliary Duct, Via Natural or Artificial Opening Endoscopic (ICD-10-PCS; principal; 2019-05-17)
PROC: 0F798DZ Dilation of Common Bile Duct with Intraluminal Device, Via Natural or Artificial Opening Endoscopic (ICD-10-PCS; 2019-05-17)
PROC: BF111ZZ Fluoroscopy of Biliary and Pancreatic Ducts using Low Osmolar Contrast (ICD-10-PCS; 2019-05-17)
DX: C25.9 Malignant neoplasm of pancreas, unspecified (principal); K83.1 Obstruction of bile duct; K83.09 Other cholangitis; K86.1 Other chronic pancreatitis; J44.9 Chronic obstructive pulmonary disease, unspecified; F19.10 Other psychoactive substance abuse, uncomplicated; K21.9 Gastro-esophageal reflux disease without esophagitis; T85.898A Other specified complication of other internal prosthetic devices, implants and grafts, initial encounter; Y83.8 Other surgical procedures as the cause of abnormal reaction of the patient, or of later complication, without mention of misadventure at the time of the procedure; E87.6 Hypokalemia; F31.9 Bipolar disorder, unspecified; F10.10 Alcohol abuse, uncomplicated; Z98.51 Tubal ligation status; Z91.14 Patient's other noncompliance with medication regimen
CPT/HCPCS: 36415; 71045; 74177; 74330; 80053; 80306; 83690; 85025; 87040; 87077; 87149; 87186; 96374; 96375; 96376; C9113; J1100; J1610; J1885; J1956; J2001; J2270; J2405; J2704; J3010; J3480; J3490; Q9966

== ENCOUNTER 2019-05-27 01:02 | Inpatient (IN) | payer SELFPAY ==
[2019-05-27] MEDS ORDERED: Ondansetron PF 4 MG/2 ML Vial IVP PRN (01:11)
[2019-05-27] MEDS ORDERED: cefTRIAXone Sodium 1,000 MG in Syringe 0 ML IVPB SCH (01:45)
[2019-05-27] MEDS: Sodium Chloride 0.9% 1,000 ML IV SCH ×3 (01:50→19:56)
[2019-05-27] MEDS: Morphine 4 MG/ML VIAL SLOW IVP PRN ×5 (01:51→19:54)
[2019-05-27] MEDS ORDERED: cefTRIAXone\\ROCEPHIN 1 GM in Sodium Chloride 0.9% 100 ML IVPB SCH (02:00)
--- NOTE | 2019-05-27 02:17 | PDOC.EVN ---
Event Note - Event Note Event Note: [id number] H&P dictated
[2019-05-27 02:18] VITALS: BMI 31.0
--- NOTE | 2019-05-27 03:13 | HP ---
CHIEF COMPLAINT: Pancreatic mass and abdominal pain. HISTORY OF PRESENT ILLNESS: Ms. Botello is a 48-year-old female with history of chronic alcoholism for several decades, was admitted on May 17 to this facility with abdominal pain. On workup, the patient was found to have a pancreatic mass, for which GI was consulted and stent was placed in the common bile duct. The patient was transferred to [facility] in [place] for further management and GI consultation. The stent was removed and replaced with a metal stent. Biopsy was done, which showed pancreatic cancer, adenocarcinoma. The patient is being transferred back to our facility for further management and oncology evaluation. PAST MEDICAL HISTORY: 1. COPD. 2. Pancreatitis. 3. Bipolar disorder. 4. GERD. 5. Recently diagnosed with pancreatic cancer. PAST SURGICAL HISTORY: Tubal ligation and biliary stent. FAMILY HISTORY: Reviewed and noncontributory. SOCIAL HISTORY: She used to be a heavy alcohol drinker for decades. ALLERGIES: NO KNOWN ALLERGIES. CURRENT MEDICATIONS: Please see home medication reconciliation form for updated medications. REVIEW OF SYSTEMS: Review of 14 systems is negative except what is mentioned in history of present illness. PHYSICAL EXAMINATION: GENERAL: The patient is awake, alert, in mild distress. HEAD AND NECK: Normocephalic and atraumatic. Neck is supple. No JVD. CHEST: Fair bilateral air entry. HEART: S1 and S2 regular. ABDOMEN: Soft with epigastric tenderness. Bowel sounds present. NEUROLOGIC: Awake, alert, and oriented x3. PSYCHIATRIC: Normal mood. EXTREMITIES: No clubbing or cyanosis. LABORATORY DATA: Biopsy of the pancreatic mass came back positive for pancreatic cancer, adenocarcinoma. IMPRESSION: 1. Pancreatic cancer, adenocarcinoma. 2. Abdominal pain. 3. Recurrent pancreatitis. 4. History of alcohol abuse. 5. Bipolar disorder. PLAN: 1. Admit. 2. We will consult Oncology for evaluation and further recommendations. 3. Consult social work coordinator as well as case management for discharge planning. 4. Pain management. 5. Reconcile medications. 6. DVT prophylaxis with low-dose heparin. 7. GI prophylaxis. 8. Expected length of stay, 2 midnights or more. Job ID: [id number]
[2019-05-27] MEDS: metroNIDAZOLE 500 MG in Premix Bag 1 BAG IVPB SCH ×3 (03:50→19:56)
[2019-05-27] MEDS: HYDROcodone/Acetaminophen 5/325 mg Tablet PO PRN ×3 (04:08→22:54)
[2019-05-27] MEDS: cefTRIAXone\\ROCEPHIN 1 GM in Sodium Chloride 0.9% 100 ML IVPB SCH (05:37)
[2019-05-27 05:57] LABS: #Basophils 0.1 thou/uL (0.0-0.2); #Eosinphils 0.1 thou/uL (0.0-0.7); #Lymphocytes 2.6 thou/uL (1.20-3.40); #Monocytes 0.5 thou/uL (0.11-0.59); #Neutrophils 2.9 thou/uL (1.40-6.50); %Basophils 1.5 % (0.0-1.0); %Eosinophils 1.5 % (0.0-10.0); %Lymphocytes 42.5 % (21.0-51.0); %Monocytes 7.9 % (0.0-10.0); %Neutrophils 46.7 % (42.0-75.0); Mean Corpuscular HGB CONC 32.7 g/dL (32.0-36.0); Mean Corpuscular Hemoglobin 30.2 pg (27.0-31.0); Mean Corpuscular Volume 92.4 fL (78.0-98.0); Mean Platelet Volume 9.2 fL (7.4-10.4); Platelet Count 293 thou/uL (130-400); RBC Distribution Width 13.9 % (11.5-14.5); Red Blood Cell (RBC) Count 3.99 mill/uL (4.20-5.40); White Blood Cell (WBC) Count 6.2 thou/uL (4.8-10.8)
[2019-05-27] MEDS ORDERED: metroNIDAZOLE 500 MG in Premix Bag 1 BAG IVPB SCH (06:00)
[2019-05-27 06:15] LABS: ALT (SGPT) 60 U/L (8-55); AST (SGOT) 61 U/L (5-34); Albumin 3.4 g/dL (3.5-5.0); Alkaline Phosphatase 416 U/L (40-150); Anion Gap 8 mmol/L (10-20); BUN (Urea Nitrogen) 10 mg/dL (7.0-18.7); Bilirubin, Total 0.9 mg/dL (0.2-1.2); Calc. Creatinine Clearance 111 mL/min (70-130); Calcium 9.4 mg/dL (7.8-10.44); Carbon Dioxide 27 mmol/L (22-29); Chloride 104 mmol/L (98-107); Estimated GFR-MDRD 86; Globulin 3.2 g/dL (2.4-3.5); Glucose 115 mg/dL (70-105); Potassium 4.2 mmol/L (3.5-5.1); Protein, Total 6.6 g/dL (6.0-8.3); Sodium 135 mmol/L (136-145)
--- NOTE | 2019-05-27 08:25 | PDOC.HOSPP ---
- Subjective Encounter Date: 05/27/19 Subjective: Intermittent LUQ pain, unchanged. Endorses response to oral pain medications. No fever. Appetite good, tolerated regular diet at [facility], wants to resume regular diet - Objective Vital Signs & Weight: Vital Signs (12 hours) Temp Pulse Resp BP BP BP Pulse Ox 05/27/19 08:00 98 F 77 18 107/74 98 05/27/19 04:00 98.2 F 82 20 101/72 98 05/27/19 01:11 97.8 F 71 18 98/63 96 05/27/19 01:02 96 Weight Weight 164 lb 3.2 oz I&O: 05/26/19 05/27/19 05/28/19 06:59 06:59 06:59 Intake Total 822 Balance 822 Result Diagrams: 05/27/19 05:31 05/27/19 05:31 Hospitalist ROS - Medication Medications: Active Medications Generic Name Dose Route Start Last Admin Trade Name Freq PRN Reason Stop Dose Admin Hydrocodone Bitart/Acetaminophen 1 tab 05/27/19 01:44 05/27/19 04:08 [place] 5/325 PO 1 tab Q6H PRN Administration Moderate Pain (4-6) Sodium Chloride 1,000 mls @ 100 mls/hr 05/27/19 01:30 05/27/19 01:50 Normal Saline 0.9% IV 1,000 mls .Q10H CHACE Administration Metronidazole 500 mg/ Device 100 mls @ 100 mls/hr 05/27/19 04:00 05/27/19 03: 50 IVPB 100 mls 0400,1200,2000 CHACE Administration Ceftriaxone Sodium 1 gm/ 100 mls @ 200 mls/hr 05/27/19 06:00 05/27/19 05:37 Sodium Chloride IVPB 100 mls Q24HR CHACE Administration Morphine Sulfate 4 mg 05/27/19 01:44 05/27/19 06:05 Morphine SLOW IVP 4 mg Q4H PRN Administration Severe Pain (7-10) Pantoprazole Sodium 40 mg 05/27/19 09:00 05/27/19 07:58 Protonix PO 40 mg DAILY CHACE Administration - Exam General Appearance: NAD General - other findings: fairly comfortable Eye: PERRL ENT: moist mucosa Neck: supple Heart: RRR Respiratory: CTAB Gastrointestinal: soft Gastrointestinal - other findings: mild LUQ tenderness Extremities: no edema Skin: no rashes Neurological: no new deficit Psychiatric: A&O x 3 Psychiatric - other findings: speech slightly pressured Hosp A/P (1) Pancreatic adenocarcinoma Code(s): C25.9 - MALIGNANT NEOPLASM OF PANCREAS, UNSPECIFIED Status: Acute (2) Bacteremia due to Escherichia coli Code(s): R78.81 - BACTEREMIA Status: Acute (3) COPD (chronic obstructive pulmonary disease) Status: Chronic (4) GERD (gastroesophageal reflux disease) Code(s): K21.9 - GASTRO-ESOPHAGEAL REFLUX DISEASE WITHOUT ESOPHAGITIS Status: Chronic (5) Polysubstance abuse Code(s): F19.10 - OTHER PSYCHOACTIVE SUBSTANCE ABUSE, UNCOMPLICATED Status: Chronic - Plan continue antibiotics, incentive spirometry, DVT proph w/lovenox Lengthy conversation with patient (>30 minutes), reviewed available [facility] records Heme/Onc - seen by team in [place]; patient wishes for care locally; nonoperable , wants to understand chemo options ID - Blood culture 2/2 E coli 05/17; seen by ID in [place], rec 2 weeks IV rocephin; I called Dr. Sanchez, as case management notes patient will need a physician to follow for IV abx. Stop date would be 06/01. Picc line in place. Spoke w/case management, need outpt infusion option in [place] or here, patient unfunded so home infusion not a choice presently. FEN - she requests regular diet - done Social support - she will stay with her Mom at discharge Pain - will need oral pain meds at discharge with close follow up Spiritual care consult Appreciate palliative care to begin discussions of goals for future given diagnosis.
[2019-05-27] MEDS ORDERED: Famotidine/PF 20 mg/2ml Vial SLOW IVP SCH (09:00)
--- NOTE | 2019-05-27 21:19 | CON ---
DATE OF CONSULTATION: REASON FOR CONSULT: Pancreatic adenocarcinoma. HISTORY OF PRESENT ILLNESS: Ms. Botello is an unfortunate 48-year-old female with past medical history of alcoholism, who was originally seen and admitted to [facility] in September of 2018, where she was diagnosed with pancreatitis and a pancreatic mass. She unfortunately did not follow up. She was admitted to this facility on January 22 with recurrence of abdominal pain. She had biliary obstruction and a 1.5 cm pancreatic mass. She was seen by GI and a stent was placed. It was recommended that she transfer to a higher level of care for EUS and biopsy of her pancreatic mass, but she refused. She was discharged home per her request and was not seen again until May 17, when she returned to this facility with abdominal discomfort. She was diagnosed with recurrent pancreatitis. A CT scan once again showed the pancreatic mass with diffuse pancreatic ductal dilation. She did undergo ERCP, and agreed to transfer to [facility], where she had the EUS. Biopsy was positive for pancreatic adenocarcinoma. She underwent scanning for staging at [facility]. She had calcified granulomas in that right upper lobe, measuring 1.1 cm. She had a right lower lobe pulmonary nodule measuring 0.4 cm, right middle lobe nodule measuring 0.2 cm and another measuring 0.3 cm. She had a pancreatic neck mass measuring 3.9 x 3.5 x 4.1 cm and encased the superior mesenteric artery and severely narrows the portal splenic confluence and invades the third portion of the duodenum. She did have a PICC line placed. She was transferred back to this facility yesterday to discuss the treatment options. Her pain is currently controlled with [place]. PAST MEDICAL HISTORY: 1. Pancreatic mass, first noted in September 2018. 2. History of pancreatitis. 3. COPD. 4. Bipolar disorder. 5. Gastroesophageal reflux disease. PAST SURGICAL HISTORY: 1. Tubal ligation. 2. Biliary stent. 3. EUS biopsy. ALLERGIES: NO KNOWN DRUG ALLERGIES. HOME MEDICATIONS: Rusk, morphine, K-Dur, promethazine, Atarax, and Protonix. FAMILY HISTORY: No history of cancer that she is aware of. SOCIAL HISTORY: , lives with her . History of heavy alcohol use and smoking. Positive for illicit drug use. She had a urine drug screen positive for opiates, methamphetamines, and cocaine. REVIEW OF SYSTEMS: A 10-point review of systems is negative except for noted in HPI. PHYSICAL EXAMINATION: VITAL SIGNS: Temperature is 98.7, pulse is 71, respiratory rate 17, blood pressure is 110/76. She is 99% on room air. GENERAL: This is a well-developed, well-nourished female, in no acute distress. HEENT: Normocephalic and atraumatic. Pupils are equal and reactive to light. NECK: Supple. CV: Regular rate and rhythm. LUNGS: Clear to auscultation. ABDOMEN: Soft. Bowel sounds are positive. She is tender in her right upper quadrant. EXTREMITIES: No clubbing or cyanosis. SKIN: No rash. HEMATOLOGIC: No petechiae or purpura. NEUROLOGIC: Nonfocal. PSYCH: She is alert and oriented and appropriate. PERTINENT LABS AND X-RAYS: Current WBCs 6.2, hemoglobin 12, hematocrit 36.9, platelet count 293,000, neutrophils 46%, lymphocytes 42%. Sodium 135, potassium 4.2, chloride 104, CO2 is 27, BUN is 10, creatinine 0.72, calcium 9.4, total bilirubin 0.9, AST 61, ALT 60, alkaline phosphatase is 416. Serum total protein is 6.6, albumin 3.4, globulin 3.2. CEA is 4.4, CA-19-9 is 80 at [facility], per HPI. ASSESSMENT: 1. Metastatic pancreatic adenocarcinoma. 2. History of alcohol and illicit drug use. DISCUSSION: The patient is a candidate for chemotherapy. This was performed in the outpatient setting. We briefly discussed the most common kind including FOLFIRINOX. She does have a PICC line in place and chemo can be administered through this. She also needs antibiotics for another 5 days for her E coli infection. Her pain has been managed with Rusk. She can be discharged from my perspective to follow up in the clinic next week to discuss further treatment options. She unfortunately has no insurance and will need financial assistance for treatment, I believe that process has already begun. Case has been discussed with Dr. Dominguez. Thank you for the consult. Job ID: [id number]
--- NOTE | 2019-05-27 22:51 | CON ---
DATE OF CONSULTATION: 05/27/2019 REASON FOR CONSULTATION: Bacteremia. HISTORY OF PRESENT ILLNESS: A 48-year-old who was initially admitted to a hospital in [place] with pancreatitis. At that time, a CT demonstrated a pancreatic mass, a biopsy was recommended. It was not done at that initial time because of swelling. Eventually, the patient was lost to follow up and then persisted with worsening abdominal pain, was admitted in January to this hospital and she had at this time obstructive jaundice associated with enlarging pancreatic mass. She had an ERCP and then sphincterotomy, and a stent was placed. The cytology then was negative. On May 17, she came back with abdominal pain and had some diarrhea associated with it as well. She was having some issues with her drinking habit again with alcohol dependency syndrome and on the 2nd admission, she had a febrile episode, had an ERCP, and a stent was replaced. Apparently, there was some purulence associated with the ERCP drainage. She was accepted at [facility] and she was transferred for a biopsy of the pancreatic mass. The biopsy was accomplished and pancreatic cancer was identified. Also at the same time, blood cultures from [facility] yielded E coli. I do not think any samples from the biliary drainage were obtained for cultures. This organism was resistant to quinolones. The patient had a PICC line placed at [facility] and she was discharged with IV Rocephin. At [facility], the stent was replaced by a metal stent and the patient then transferred back to [facility] for continuation of management. Currently, she is still having moderate pain across the upper abdomen, particularly in the right and left upper quadrants. She denies headaches, although she does have intermittent headaches. No visual symptoms, sore throat, odynophagia, dysphagia. No cough or sputum production, chest pain. No genitourinary symptoms. No diarrhea. No joint symptoms. No skin disorder except for the PICC line. PAST MEDICAL HISTORY: Alcoholism, bipolar disorder, GERD, one episode of pancreatitis due to obstruction by pancreatic cancer recently diagnosed, 2 or 3 biliary pancreatic duct procedures with stenting. PAST SURGICAL HISTORY: Also includes tubal ligation. FAMILY HISTORY: Noncontributory. SOCIAL HISTORY: She works with [employer] and drinks heavily for decades. ALLERGIES: NONE. CURRENT MEDICATIONS: 1. [place]. 2. Ceftriaxone. 3. Flagyl. 4. Ondansetron. 5. Protonix. PHYSICAL EXAMINATION: VITAL SIGNS: T-max 98.2, blood pressure 103/73, pulse 71, respirations 16, and O2 saturation 99. SKIN: Shows a PICC line in right upper extremity. No lymphadenopathy. HEENT: Ocular movements conjugate. Oral cavity with numerous teeth in place with fairly decent shape. NECK: Supple. No jugular vein distention or carotid bruits. LUNGS: Symmetric. Clear breath sounds. HEART: S1 and S2, regular rate. No S3 or S4. ABDOMEN: Soft with tenderness in the epigastric right upper and left upper quadrant areas. No bladder distention. EXTREMITIES: No joint inflammatory activity. Moves extremities equally. Pulses are 1+ in dorsalis pedis. No edema. Plantar responses are flexor. NEURO: Cognitive function appears to be intact. LABORATORY DATA: White cell count 6.2, hemoglobin 12, platelets 293. Sodium 135, creatinine 0.72. AST 61, ALT 60, alkaline phosphatase 416, albumin 3.4, bilirubin 0.9. IMAGING: The last abdomen CT is from about 10 days ago and it demonstrated a pancreatic mass, diffuse pancreatic ductal dilatation and intra and extrahepatic biliary ductal dilatations. ASSESSMENT: Pancreatic cancer, alcoholism, biliary and pancreatic duct dilatations due to the cancer, ERCP with stents with the last one has been placed to [facility] with metal stent, biopsy documented pancreatic cancer, cholangitis with Escherichia coli bacteremia, but no evidence of abscess formation. The patient has received about 8 to 10 days of therapy with Rocephin, I think another 2 days and she will be done with her treatment. Should be able to discontinue antimicrobial therapy then. She has no evidence of abscess formation which in this case would be in the biliary liver parenchyma. No other areas of septic dissemination are apparent at this point in time, so I would discontinue antimicrobial therapy probably in the next 2 days or so approximately. Job ID: [id number]
[2019-05-28] MEDS: Morphine 4 MG/ML VIAL SLOW IVP PRN ×3 (03:14→20:04)
[2019-05-28] MEDS: metroNIDAZOLE 500 MG in Premix Bag 1 BAG IVPB SCH ×3 (03:14→20:03)
[2019-05-28] MEDS: cefTRIAXone\\ROCEPHIN 1 GM in Sodium Chloride 0.9% 100 ML IVPB SCH (05:28)
[2019-05-28] MEDS: Sodium Chloride 0.9% 1,000 ML IV SCH (07:42)
[2019-05-28] MEDS: HYDROcodone/Acetaminophen 5/325 mg Tablet PO PRN ×2 (09:34→18:10)
--- NOTE | 2019-05-28 09:52 | PDOC.MOPN ---
Interval History: pain controlled with norco. - Vital Signs Vital Signs: Vital Signs (12 hours) Temp Pulse Resp BP BP Pulse Ox 05/28/19 08:07 98.3 F 85 16 115/78 97 05/28/19 08:00 97 05/28/19 05:48 97.9 F 88 20 130/88 97 05/27/19 23:42 98.2 F 84 20 118/72 98 Weight Admit Weight 164 lb 3.2 oz Weight 164 lb 3.2 oz - Physical Exam General: Alert, Oriented x3, No acute distress HEENT: Atraumatic, PERRLA, EOMI, Mucous membr. moist/pink Lungs: Clear to auscultation, Normal air movement Cardiovascular: Regular rate, Normal S1, Normal S2, No murmurs, Gallops, Rubs Abdomen: Other Extremities: No clubbing, No cyanosis, No edema, Normal pulses, No tenderness/ swelling Skin: No rashes, No breakdown, No significant lesion Neurological: Normal gait, Normal speech, Strength at 5/5 X4 ext, Normal tone, Sensation intact, Cranial nerves 3-12 NL, Reflexes 2+ Psych/Mental Status: Mental status NL, Mood NL - Labs Result Diagrams: 05/27/19 05:31 05/27/19 05:31 Status: lab reviewed by me A/P - Problem (1) Pancreatic adenocarcinoma Current Visit: Yes Code(s): C25.9 - MALIGNANT NEOPLASM OF PANCREAS, UNSPECIFIED Status: Acute - Plan Plan: Patient to follow-up with Dr. Riley on 06/09/19 11:15 to discuss treatment. Culturelink used to update . DC home when ok with Hospitalist.
--- NOTE | 2019-05-28 12:54 | PDOC.HOSPP ---
- Subjective Encounter Date: 05/28/19 Encounter Time: 11:20 Subjective: no nausea or sob is tolerating oral diet ambulating in hallway at bedside - Objective Vital Signs & Weight: Vital Signs (12 hours) Temp Pulse Resp BP BP Pulse Ox 05/28/19 08:07 98.3 F 85 16 115/78 97 05/28/19 08:00 97 05/28/19 05:48 97.9 F 88 20 130/88 97 Weight Admit Weight 164 lb 3.2 oz Weight 164 lb 3.2 oz I&O: 05/27/19 05/28/19 05/29/19 06:59 06:59 06:59 Intake Total 822 2040 240 Balance 822 2040 240 Result Diagrams: 05/27/19 05:31 05/27/19 05:31 Hospitalist ROS - Medication Medications: Active Medications Generic Name Dose Route Start Last Admin Trade Name Freq PRN Reason Stop Dose Admin Hydrocodone Bitart/Acetaminophen 1 tab 05/27/19 01:44 05/28/19 09:34 [place] 5/325 PO 1 tab Q6H PRN Administration Moderate Pain (4-6) Sodium Chloride 1,000 mls @ 100 mls/hr 05/27/19 01:30 05/28/19 07:42 Normal Saline 0.9% IV 1,000 mls .Q10H CHACE Administration Metronidazole 500 mg/ Device 100 mls @ 100 mls/hr 05/27/19 04:00 05/28/19 11: 36 IVPB 100 mls 0400,1200,2000 CHACE Administration Ceftriaxone Sodium 1 gm/ 100 mls @ 200 mls/hr 05/27/19 06:00 05/28/19 05:28 Sodium Chloride IVPB 100 mls Q24HR CHACE Administration Morphine Sulfate 4 mg 05/27/19 01:44 05/28/19 12:42 Morphine SLOW IVP 4 mg Q4H PRN Administration Severe Pain (7-10) Pantoprazole Sodium 40 mg 05/27/19 09:00 05/28/19 07:43 Protonix PO 40 mg DAILY CHACE Administration - Exam General Appearance: awake alert, ill appearing Eye: PERRL, anicteric sclera ENT: no oropharyngeal lesions, moist mucosa Neck: supple, no JVD Heart: RRR, no murmur Respiratory: no wheezes, no rales Gastrointestinal: soft, normal bowel sounds, tender to palpation Extremities: no cyanosis, no edema Neurological: cranial nerve grossly intact, no focal deficits Psychiatric: normal affect, A&O x 3 Hosp A/P (1) Bacteremia due to Escherichia coli Code(s): R78.81 - BACTEREMIA Status: Acute (2) Pancreatic adenocarcinoma Code(s): C25.9 - MALIGNANT NEOPLASM OF PANCREAS, UNSPECIFIED Status: Acute (3) Cholangitis Code(s): K83.09 - OTHER CHOLANGITIS Status: Acute (4) COPD (chronic obstructive pulmonary disease) Status: Chronic (5) GERD (gastroesophageal reflux disease) Code(s): K21.9 - GASTRO-ESOPHAGEAL REFLUX DISEASE WITHOUT ESOPHAGITIS Status: Chronic Qualifiers: Esophagitis presence: esophagitis presence not specified Qualified Code(s) : K21.9 - Gastro-esophageal reflux disease without esophagitis (6) Obesity (BMI 30-39.9) Code(s): E66.9 - OBESITY, UNSPECIFIED Status: Chronic (7) Polysubstance abuse Code(s): F19.10 - OTHER PSYCHOACTIVE SUBSTANCE ABUSE, UNCOMPLICATED Status: Chronic - Plan is on ceftriaxone for another 2 days to f/u with on hemostable may dc flagyl if ok with other specialists dc plan after 2 days of iv ceftriaxone to ambulate as tolerated
[2019-05-29] MEDS: Morphine 4 MG/ML VIAL SLOW IVP PRN ×5 (02:11→23:06)
[2019-05-29] MEDS: metroNIDAZOLE 500 MG in Premix Bag 1 BAG IVPB SCH ×3 (03:07→20:43)
[2019-05-29] MEDS: HYDROcodone/Acetaminophen 5/325 mg Tablet PO PRN ×3 (03:10→20:44)
[2019-05-29] MEDS: cefTRIAXone\\ROCEPHIN 1 GM in Sodium Chloride 0.9% 100 ML IVPB SCH (06:10)
--- NOTE | 2019-05-29 15:15 | PDOC.HOSPP ---
- Subjective Encounter Date: 05/29/19 Encounter Time: 08:00 Subjective: no abd pain or sob or nausea is ambulating in hallway - Objective Vital Signs & Weight: Vital Signs (12 hours) Temp Pulse Resp BP Pulse Ox 05/29/19 08:07 98.1 F 81 16 111/77 95 Weight Admit Weight 164 lb 3.2 oz Weight 164 lb 3.2 oz I&O: 05/28/19 05/29/19 05/30/19 06:59 06:59 06:59 Intake Total 2039 1520 Balance 2039 1520 Result Diagrams: 05/27/19 05:31 05/27/19 05:31 Hospitalist ROS - Medication Medications: Active Medications Generic Name Dose Route Start Last Admin Trade Name Freq PRN Reason Stop Dose Admin Hydrocodone Bitart/Acetaminophen 1 tab 05/27/19 01:44 05/29/19 15:10 [place] 5/325 PO 1 tab Q6H PRN Administration Moderate Pain (4-6) Metronidazole 500 mg/ Device 100 mls @ 100 mls/hr 05/27/19 04:00 05/29/19 12: 37 IVPB 100 mls 0400,1200,2000 CHACE Administration Ceftriaxone Sodium 1 gm/ 100 mls @ 200 mls/hr 05/27/19 06:00 05/29/19 06:10 Sodium Chloride IVPB 100 mls Q24HR CHACE Administration Morphine Sulfate 4 mg 05/27/19 01:44 05/29/19 12:36 Morphine SLOW IVP 4 mg Q4H PRN Administration Severe Pain (7-10) Pantoprazole Sodium 40 mg 05/27/19 09:00 05/29/19 08:22 Protonix PO 40 mg DAILY CHACE Administration - Exam General Appearance: NAD, awake alert Eye: PERRL, anicteric sclera ENT: no oropharyngeal lesions, moist mucosa Neck: supple, no JVD Heart: RRR, no murmur Respiratory: no wheezes, no rales Gastrointestinal: soft, non-distended, normal bowel sounds, no rigidity Extremities: no cyanosis, no edema Neurological: cranial nerve grossly intact, no focal deficits Psychiatric: normal affect, A&O x 3 Hosp A/P (1) Bacteremia due to Escherichia coli Code(s): R78.81 - BACTEREMIA Status: Acute (2) Pancreatic adenocarcinoma Code(s): C25.9 - MALIGNANT NEOPLASM OF PANCREAS, UNSPECIFIED Status: Acute (3) Cholangitis Code(s): K83.09 - OTHER CHOLANGITIS Status: Acute (4) COPD (chronic obstructive pulmonary disease) Status: Chronic (5) GERD (gastroesophageal reflux disease) Code(s): K21.9 - GASTRO-ESOPHAGEAL REFLUX DISEASE WITHOUT ESOPHAGITIS Status: Chronic Qualifiers: Esophagitis presence: esophagitis presence not specified Qualified Code(s) : K21.9 - Gastro-esophageal reflux disease without esophagitis (6) Obesity (BMI 30-39.9) Code(s): E66.9 - OBESITY, UNSPECIFIED Status: Chronic (7) Polysubstance abuse Code(s): F19.10 - OTHER PSYCHOACTIVE SUBSTANCE ABUSE, UNCOMPLICATED Status: Chronic - Plan is on ceftriaxone for another day, dc plan in am after ceftriaxone dose. to f/u with on hemostjanuary dc flagyl if ok with other specialists to ambulate as tolerated d/w patient and at bedside
[2019-05-30] MEDS: Morphine 4 MG/ML VIAL SLOW IVP PRN ×2 (04:41→09:21)
[2019-05-30] MEDS: metroNIDAZOLE 500 MG in Premix Bag 1 BAG IVPB SCH ×2 (04:41→11:43)
[2019-05-30] MEDS: HYDROcodone/Acetaminophen 5/325 mg Tablet PO PRN ×2 (05:53→12:35)
[2019-05-30] MEDS: cefTRIAXone\\ROCEPHIN 1 GM in Sodium Chloride 0.9% 100 ML IVPB SCH (05:53)
[2019-05-30 12:40] VITALS: BP 108/56; TEMP 98.2
--- NOTE | 2019-05-31 11:17 | DIS ---
DATE OF ADMISSION: 05/27/2019 DATE OF DISCHARGE: 05/30/2019 DISCHARGE DISPOSITION: To home. PRIMARY DISCHARGE DIAGNOSES: 1. Acute cholangitis with bacteremia, resolved. 2. Pancreatic adenocarcinoma to initiate chemo/immunotherapy in the outpatient setting in the following weeks. SECONDARY DISCHARGE DIAGNOSIS: 1. Obesity. 2. Polysubstance abuse. 3. Gastroesophageal reflux disease. 4. Chronic obstructive pulmonary disease. PROCEDURES DONE DURING HOSPITALIZATION: H and H of 12 and 36, platelet count 293. BUN 10, creatinine 0.7, AST 61, ALT 60, alkaline phosphatase 416, and total bilirubin 0.9. INPATIENT CONSULTS: 1. Dr. Sanchez for Infectious Disease. 2. Ms. Nina Jacob for Oncology. DISCHARGE PLAN: The patient to follow up with Dr. Riley on the . She needs to find a primary care physician in the outpatient setting and followup within 1 week. BRIEF COURSE DURING HOSPITALIZATION: The patient initially was transferred back from [facility] after placement of stent for obstructive pancreatic mass. She also had cholangitis with E coli bacteremia. She completed her ceftriaxone therapy here. Prior to discharge, she is ambulating and is fully oriented. The patient has to eat multiple times due to feeling of fullness from pancreatic mass. The patient needs to start chemo/immunotherapy in the following weeks when she follows up with Dr. Riley on the . She is otherwise hemodynamically stable and is cleared for discharge by Dr. Sanchez. Please note, I have seen and examined the patient on the day of discharge. She was counseled with regard to substance use. Job ID: [id number] [facility]
--- NOTE | 2019-06-02 06:55 | PQF ---
[employer] Win[employer] ViewerImhoff ROME Angelo MD [id number] CLINICAL DOCUMENTATION CLARIFICATION FORM: POST DISCHARGE Addendum to original discharge summary date: ____ Late entry note date: __ DATE: 06/02/2019 ATTN: ROME CAMARILLO MD Please exercise your independent, professional judgment in responding to the clarification form. Clinical indicators are provided on the bottom of this form for your review Please check appropriate box(s) to clarify if the following diagnosis has been ruled in or ruled out: Recurrent pancreatitis [x ] Ruled in diagnosis [ ] Continue to treat [ x ] Resolved [ ] Ruled out diagnosis [ ] Cannot rule out diagnosis [ ] Other diagnosis [ ] Unable to determine For continuity of documentation, please document condition throughout progress notes and discharge summary. Thank You. CLINICAL INDICATORS - SIGNS / SYMPTOMS / LABS - Recurrent pancreatitis- H&P, 05/27, Jatinder Haywood MD - Pancreatic cancer, adenocarcinoma-H&P, 05/27, Jatinder Haywood MD - Acute cholangitis with bacteremia, resolved- DS, 05/30, ROME CAMARILLO MD - she was diagnosed with recurrent pancreatitis-stent- Consultation 05/27, Cecil Wood - pancreatic neck mass measuring 3.9 x3.5x4.1 cm- Consultation 05/27, Cecil Wood RISK FACTORS - Hx of Alcohol abuse-H&P, 05/27, Jatinder Haywood MD - Polysubstance abuse-DS, 05/30, ROME CAMARILLO MD - s/p Biliary stent- Consultation 05/27, Cecil Wood TREATMENTS - Sodium chloride.IV (This form is maintained as a part of the permanent medical record) 2014 [employer]. All Rights Reserved [employer] Winform ViewerRajavier Valdes [ not provided] [not provided] MTDD
--- NOTE | 2019-06-02 07:11 | PQF ---
[employer] Press Feeder Crystal Reports Winform ViewerImhoff ROME Angelo MD [id number] CLINICAL DOCUMENTATION CLARIFICATION FORM: POST DISCHARGE Addendum to original discharge summary date: ____ Late entry note date: __ DATE: ATTN: ROME CAMARILLO MD Please exercise your independent, professional judgment in responding to the clarification form. Clinical indicators are provided on the bottom of this form for your review Please check appropriate box(es): [x ] Sepsis due to: (Cholangitis, Pancreatitis, etc.) _sec to cholangitis with pancreatic cancer [ ] SIRS due to non-infectious process (please specify etiology) [ ] with organ dysfunction [ ] without organ dysfunction [ ] Severe sepsis with acute organ dysfunction of: [ ] Localized infection without sepsis [ ] Other diagnosis [ ] Unable to determine In addition, please specify: Present on Admission (POA): [ x] Yes [ ] No [ ] Unable to determine For continuity of documentation, please document condition throughout progress notes and discharge summary. Thank You. CLINICAL INDICATORS - SIGNS / SYMPTOMS / LABS - Acute Cholangitis with bacteremia, resolved- DS, 05/30, ROME CAMARILLO MD - Cholangitis with E.coli bacteremia-DS, 05/30, ROME CAMARILLO MD - Temp:98.2-Pulse:82, RR:20- Hospital PN, 05/27, Rosemarie Dean MD - no evidence of abscess formation- Consultation, 05/27, Daniel Jeffers MD - WBC:6.2- Laboratory, 05/27 RISK FACTORS - Recurrent pancreatitis- H&P,05/27,Jatinder Haywood MD - s/p Biliary stent- Consultation 05/27, Cecil Wood TREATMENTS: - Rocephin.IV-MAR, 05/27 (This form is maintained as a part of the permanent medical record) 2014 [employer]. All Rights Reserved Edward Valdes [not provided] [not provided] MTDD
== END 2019-05-30 13:05 | disposition home or self-care (01) | DRG 872 ==
LOC: T4-B 01:02
PROVIDERS: ADMIT Internal Medicine; ATTEND Internal Medicine
DX: A41.51 Sepsis due to Escherichia coli [E. coli] (principal); C25.9 Malignant neoplasm of pancreas, unspecified; K83.09 Other cholangitis; K86.1 Other chronic pancreatitis; F31.9 Bipolar disorder, unspecified; J44.9 Chronic obstructive pulmonary disease, unspecified; K21.9 Gastro-esophageal reflux disease without esophagitis; E66.9 Obesity, unspecified; Z68.31 Body mass index [BMI] 31.0-31.9, adult; Z98.51 Tubal ligation status
CPT/HCPCS: 80053; 85025; J0696; J2270; J3490

== ENCOUNTER 2019-07-17 14:24 | Inpatient (IN) | payer MEDICAID ==
[2019-07-17] MEDS ORDERED: HYDROmorphone 0.5 MG/0.5 ML SYRINGE ONE ×3 (14:55→20:33)
--- NOTE | 2019-07-17 15:30 | RAD ---
CHEST 1 VIEW: HISTORY: Pancreatic cancer with cough and fever. COMPARISON: 05/17/2019 study. FINDINGS: Heart size is within normal limits. Aorta is tortuous. The lungs are clear of any infiltrative proc ess. IMPRESSION: No active intrathoracic disease. POS: TPC
--- NOTE | 2019-07-17 15:40 | CT ---
Exam: Abdomen and pelvic CT scan with IV contrast: HISTORY: Abdominal pain, pancreatic cancer COMPARISON: 05/17/2019 FINDINGS: Minimal bibasilar linear parenchymal changes and some right-sided pleural thickening probably related to some subsegmental atelectasis. Persistent marked dilatation of the intrahepatic ducts with some air. Replacement of the previously noted indwelling biliary scan with a larger caliber stent. No significa nt change in the size of the intrahepatic ducts. There is persistent dilatation of the pancreatic duct. Again noted is a very poorly defined inhomogeneous low-attenuation mass in the region of the he ad of the pancreas. There is a small hiatal hernia with some fluid in the distal esophagus. The gallbladder appears unremarkable. Right and left adrenal glands, spleen, and kidneys are unremarkable . No renal calculus or acute obstruction. There is a small amount of free intraperitoneal fluid within the abdomen and pelvis. There is some increased nonspecific mesenteric fat stranding with comp ared to the prior study. There is some abnormal colonic wall thickening including the right colon, transverse colon, and left colon extending into the region of the rectum concerning for nonspecific c olitis. This thickening does appear to be more prominent than on the prior study. No CT evidence for acute appendicitis. Evidence for approximately 3.3 cm left uterine fundal fibroid. No large or sm all bowel obstruction. IMPRESSION: Persistent dilatation of the intrahepatic ducts with a new indwelling distal common duct stent with p ersistent dilatation of the pancreatic duct and persistent poorly defined pancreatic head mass. Development of minimal free intraperitoneal fluid as well as some diffuse mesenteric fat stranding. Progressive diffuse thickening of the colon evidence for nonspecific colitis. Other findings as above .
[2019-07-17] MEDS ORDERED: Iopamidol-370 76% 500 ML 1 ML ONE (15:58)
[2019-07-17 16:06] LABS: Hemoglobin 11.5 g/dL (12.0-16.0); Mean Corpuscular HGB CONC 32.4 g/dL (32.0-36.0); Mean Corpuscular Hemoglobin 30.6 pg (27.0-31.0); Mean Corpuscular Volume 94.5 fL (78.0-98.0); Mean Platelet Volume 9.7 fL (7.4-10.4); Platelet Count 204 thou/uL (130-400); RBC Distribution Width 13.2 % (11.5-14.5); Red Blood Cell (RBC) Count 3.77 mill/uL (4.20-5.40); White Blood Cell (WBC) Count 7.9 thou/uL (4.8-10.8)
[2019-07-17] MEDS ORDERED: Piperacillin/Tazobactam 3.375 GM VIAL ONE (16:22)
[2019-07-17 16:23] LABS: Band 21 % (5-11); Lymphocytes 6 % (21-51); MDiff Complete? YES; Monocytes 4 % (0-10); Neutrophil 69 % (42-75); Platelet Morphology Comment Appears Adequate; RBC Morphology Normal
[2019-07-17 16:28] LABS: ALT (SGPT) 86 U/L (8-55); AST (SGOT) 122 U/L (5-34); Albumin 3.1 g/dL (3.5-5.0); Alkaline Phosphatase 571 U/L (40-110); Anion Gap 14 mmol/L (10-20); BUN (Urea Nitrogen) 8 mg/dL (7.0-18.7); Bilirubin, Total 4.6 mg/dL (0.2-1.2); Calc. Creatinine Clearance 0 mL/min (70-130); Calcium 8.4 mg/dL (7.8-10.44); Carbon Dioxide 23 mmol/L (22-29); Chloride 105 mmol/L (98-107); Estimated GFR-MDRD Greater than 90; Globulin 3.8 g/dL (2.4-3.5); Glucose 99 mg/dL (70-105); Potassium 3.7 mmol/L (3.5-5.1); Protein, Total 6.9 g/dL (6.0-8.3); Sodium 138 mmol/L (136-145)
[2019-07-17 18:25] LABS: Bacteria/HPF None Seen HPF (None Seen); Bilirubin 2+ (Negative); Blood, Urine Negative (Negative); Clarity Clear (Clear); Glucose, Urine (Dipstick) Normal (Negative); Leukocyte Negative Leu/uL (Negative); Nitrite Negative (Negative); Protein, Urine (Dipstick) 30 mg/dL (Neg-Trace); Squamous Epithelial 21-50 HPF (0-3); WBC/HPF 0-3 HPF (0-3)
--- NOTE | 2019-07-17 19:31 | PDOC.HHP ---
Hospitalist HPI - History of Present Illness Abdominal pain History of Present Illness: 48F with PMH pancreatic cancer, chronic alcohol abuse presents to ED for abdominal pain, diarrhea. She has pancreatic cancer dx in May, reports chronic pain at about a 5/10 level but worsened within last few days to a 10/10 , she also reports 2-3 weeks of diarrhea. She has been unable to eat a full meal for months, can only eat a few bites of food. Has not eaten anything in several days. She reports she was started on Norcos recently after outpatient once biopsy was finalized. She ran out a week ago. Patient has not seen any providers since seeing Dr Riley in May. She got approved for disability very recently and is now funded. She has been having a very difficult time making a decision on whether or not to intiate chemotherapy. She reports a fever today to 102, though the ER records do not confirm this (Tmax in ED 100.1) . In ED, LFTs elevtaed with AKP in 500s in a cholestatic pattern. AST 122, ALT 86. Total bilirubin 4.6, baseline under 1.0 from May of this year. CXR without acute findings, CT A/P revealed persistent IH duct dilatation, new stent in distal common duct, persistent pancreatic head mass, now new free intraperitoneal fluid and diffuse mesenteric fat stranding. Diffuse thickening of the colon concerning for colitis as well. Sound physicans to admit. With regard to last admission: She was recently admitted here from 05/17-05/30 of this year after having an occluded biliary stent exchange to bare metal by Dr Mckinney on 05/17, she was transferred to [facility] after she developed cholangitis and because she needed an EUS to diagnose her pancreatic adenocarcinoma. Cholangitis was due to E coli and was treated with ceftriaxone and cleared for discharge by infectious disease Dr Sanchez after she was transferred back here on 05/27. Oncology: Dr Riley. PCP: Does not really have one, sees [facility]. Hospitalist ROS - Review of Systems Constitutional: reports: fever, chills Eyes: reports: vision change, redness ENT: reports: nose discharge, nose congestion. denies: mouth swelling, throat pain, throat swelling Respiratory: reports: cough, shortness of breath, pleuritic pain. denies: wheezing Cardiovascular: reports: chest pain. denies: palpitations, orthopnea Gastrointestinal: reports: nausea, abdominal pain, diarrhea. denies: vomiting Genitourinary: denies: dysuria, frequency Musculoskeletal: reports: arm pain, hand pain Skin: denies: rash, lesions Neurological: denies: numbness, change in speech, confusion, seizures All other systems reviewed; all pertinent +/- noted in HPI/Subj - Medication Medications: medications at home and inpatient medication list reviewed, see chart for details Hospitalist History - Past Medical History Other Medical History: COPD pancreatic cancer bipolar disorder GERD - Past Surgical History Other Surgical History: tubal ligatoin biliary stent - Family History Other Family History: reviewed and noncontributory - Social History Other Social History: previous alcohol abuse for decades - Exam General - other findings: mild distress due to chronic abdominal pain ENT: normocephalic atraumatic, moist mucosa Neck: supple, no JVD Heart: RRR, no murmur, no gallops, no rubs Respiratory: CTAB, no wheezes, no rales, no ronchi Gastrointestinal: soft, normal bowel sounds, no guarding, no rigidity Gastrointestinal - other findings: diffusely tender to palpation Extremities: no cyanosis, no clubbing, no edema Skin: no lesions, no rashes Neurological: cranial nerve grossly intact, normal sensation to touch, no focal deficits Musculoskeletal: normal tone, normal strength Psychiatric: normal affect, normal behavior, A&O x 3 Hospitalist Results - Labs Result Diagrams: 07/17/19 15:50 07/17/19 15:50 Lab results: WBC 7.9 thou/uL (4.8-10.8) 07/17/19 15:50 Hgb 11.5 g/dL (12.0-16.0) L 07/17/19 15:50 Hct 35.6 % (36.0-47.0) L 07/17/19 15:50 MCV 94.5 fL (78.0-98.0) 07/17/19 15:50 Plt Count 204 thou/uL (130-400) 07/17/19 15:50 Band Neuts % (Manual) 21 % (5-11) H 07/17/19 15:50 Sodium 138 mmol/L (136-145) 07/17/19 15:50 Potassium 3.7 mmol/L (3.5-5.1) 07/17/19 15:50 Chloride 105 mmol/L (98-107) 07/17/19 15:50 Carbon Dioxide 23 mmol/L (22-29) 07/17/19 15:50 BUN 8 mg/dL (7.0-18.7) 07/17/19 15:50 Creatinine 0.54 mg/dL (0.6-1.1) L 07/17/19 15:50 Glucose 99 mg/dL (70-105) 07/17/19 15:50 Lactic Acid 1.3 mmol/L (0.5-2.2) 07/17/19 15:50 Calcium 8.4 mg/dL (7.8-10.44) 07/17/19 15:50 Total Bilirubin 4.6 mg/dL (0.2-1.2) H 07/17/19 15:50 AST 122 U/L (5-34) H 07/17/19 15:50 ALT 86 U/L (8-55) H 07/17/19 15:50 Alkaline Phosphatase 571 U/L (40-110) H 07/17/19 15:50 Serum Total Protein 6.9 g/dL (6.0-8.3) 07/17/19 15:50 Albumin 3.1 g/dL (3.5-5.0) L 07/17/19 15:50 Urine Ketones Negative mg/dL (Negative) 07/17/19 18:00 Urine Blood Negative (Negative) 07/17/19 18:00 Urine Nitrite Negative (Negative) 07/17/19 18:00 Ur Leukocyte Esterase Negative Kait/uL (Negative) 07/17/19 18:00 Urine RBC 4-6 HPF (0-3) A 07/17/19 18:00 Urine WBC 0-3 HPF (0-3) 07/17/19 18:00 Ur Squamous Epith Cells 21-50 HPF (0-3) A 07/17/19 18:00 Urine Bacteria None Seen HPF (None Seen) 07/17/19 18:00 Hospitalist H&P A/P - Problem (1) Pancreatic adenocarcinoma Code(s): C25.9 - MALIGNANT NEOPLASM OF PANCREAS, UNSPECIFIED Status: Acute Assessment and Plan: delays in seeing oncology, patient not sure if she would want chemotherapy vs palliative approach. just recently got disability approved so is funded for longer term chemotherapy if she wishes - admit to floor - PRN pain and nausea medications - consult GI, oncology, palliative care team (2) Acute liver failure Status: Acute Assessment and Plan: has history of obstructive jaundice, pancreatic cancer, has bare metal biliary stent placed in May. Currently LFTs elevated in cholestatic pattern - consult GI in AM to determine if stent requires manipulation or removal - trend LFTs daily (3) Obstructive jaundice Code(s): K83.1 - OBSTRUCTION OF BILE DUCT Status: Acute Assessment and Plan: treat as above (4) COPD (chronic obstructive pulmonary disease) Status: Chronic Assessment and Plan: duoneb PRN, no wheezing on my exam (5) GERD (gastroesophageal reflux disease) Code(s): K21.9 - GASTRO-ESOPHAGEAL REFLUX DISEASE WITHOUT ESOPHAGITIS Status: Chronic Qualifiers: Esophagitis presence: esophagitis presence not specified Qualified Code(s) : K21.9 - Gastro-esophageal reflux disease without esophagitis Assessment and Plan: PPI (6) History of alcohol abuse Code(s): F10.11 - ALCOHOL ABUSE, IN REMISSION Status: Acute Assessment and Plan: noted patient reports succesful cessation (7) Polysubstance abuse Code(s): F19.10 - OTHER PSYCHOACTIVE SUBSTANCE ABUSE, UNCOMPLICATED Status: Acute Assessment and Plan: Used cocaine and methamphetamine within last few days, cessation counselling provided - UDS ordered
[2019-07-17 21:10] VITALS: BMI 29.0
[2019-07-17] MEDS ORDERED: Ondansetron ODT 4 MG TAB SL PRN (21:17)
[2019-07-17] MEDS ORDERED: Ondansetron PF 4 MG/2 ML Vial IVP PRN (21:17)
[2019-07-17] MEDS ORDERED: Lactated Ringer's 1,000 ML IV SCH (21:30)
[2019-07-17] MEDS: Morphine 2 MG/ML SYRINGE SLOW IVP PRN (21:50)
[2019-07-18] MEDS ORDERED: Loperamide HCl 2 MG CAP PO PRN (00:08)
[2019-07-18] MEDS ORDERED: HYDROcodone/Acetaminophen 5/325 mg Tablet PO PRN (00:08)
[2019-07-18] MEDS ORDERED: Bisacodyl 10 MG SUPP PR PRN (00:08)
[2019-07-18] MEDS ORDERED: Senokot S 8.6-50 MG TAB PO PRN (00:08)
[2019-07-18] MEDS ORDERED: Bisacodyl 5 MG TAB PO PRN (00:08)
[2019-07-18] MEDS ORDERED: traMADol HCl 50 MG TAB PO PRN (00:10)
[2019-07-18] MEDS ORDERED: hydrOXYzine 25 MG TAB PO PRN (00:10)
[2019-07-18] MEDS ORDERED: Promethazine HCl 12.5 MG in Sodium Chloride 0.9% 50 ML IVPB PRN (00:11)
[2019-07-18] MEDS ORDERED: hydrALAZINE 20 MG/ML VIAL SLOW IVP PRN (00:12)
[2019-07-18] MEDS ORDERED: cloNIDine 0.1 MG TAB PO PRN (00:12)
[2019-07-18 01:06] LABS: Pregnancy Test - Urine (BHCG) Negative (Negative); Pregu Control Background? CLEAR/WHITE (CLR/WHITE); Pregu Control Bar Appear? YES (CONTROL BAR); Specific Gravity Greater than 1.060 (1.002-1.036)
[2019-07-18 01:23] LABS: Amphetamine Detected (NotDetected); Barbiturates Screen Not Detected (NotDetected); Benzodiazepine Screen Not Detected (NotDetected); Cocaine Metabolite Screen Detected (NotDetected); Medtox Control Line Valid? VALID (VALID); Medtox Reader # READER 4; Methadone Not Detected (NotDetected); Methamphetamine Detected (NotDetected); Opiate Screen Detected (NotDetected); Oxycodone Screen Not Detected (NotDetected); Phencyclidine (PCP) Not Detected (NotDetected); THC/Cannabinoid Screen Not Detected (NotDetected); Tricyclic Screen Not Detected (NotDetected)
[2019-07-18] MEDS: Piperacillin/Tazobactam 3.375 GM in Sodium Chloride 0.9% 100 ML IVPB SCH ×3 (01:54→18:25)
[2019-07-18] MEDS: Morphine 2 MG/ML SYRINGE SLOW IVP PRN ×3 (01:56→09:42)
[2019-07-18] MEDS: Lactated Ringer's 1,000 ML IV SCH ×3 (02:00→21:09)
[2019-07-18] MEDS: Lorazepam 1 MG TAB PO PRN ×4 (02:02→14:49)
[2019-07-18] MEDS: Acetaminophen 325 MG TAB PO PRN (03:54)
[2019-07-18 06:08] LABS: #Basophils 0.1 thou/uL (0.0-0.2); #Lymphocytes 0.8 thou/uL (1.20-3.40); #Monocytes 0.7 thou/uL (0.11-0.59); #Neutrophils 5.9 thou/uL (1.40-6.50); %Basophils 1.5 % (0.0-1.0); %Eosinophils 0.6 % (0.0-10.0); %Lymphocytes 10.4 % (21.0-51.0); %Monocytes 8.7 % (0.0-10.0); %Neutrophils 78.9 % (42.0-75.0); Hemoglobin 10.7 g/dL (12.0-16.0); Mean Corpuscular HGB CONC 32.6 g/dL (32.0-36.0); Mean Corpuscular Hemoglobin 30.5 pg (27.0-31.0); Mean Corpuscular Volume 93.4 fL (78.0-98.0); Mean Platelet Volume 9.3 fL (7.4-10.4); Platelet Count 170 thou/uL (130-400); RBC Distribution Width 13.1 % (11.5-14.5); Red Blood Cell (RBC) Count 3.51 mill/uL (4.20-5.40); White Blood Cell (WBC) Count 7.5 thou/uL (4.8-10.8)
[2019-07-18 06:30] LABS: ALT (SGPT) 85 U/L (8-55); AST (SGOT) 96 U/L (5-34); Albumin 2.8 g/dL (3.5-5.0); Alkaline Phosphatase 464 U/L (40-110); Anion Gap 12 mmol/L (10-20); BUN (Urea Nitrogen) 8 mg/dL (7.0-18.7); Bilirubin, Total 4.3 mg/dL (0.2-1.2); Calc. Creatinine Clearance 119 mL/min (70-130); Calcium 8.1 mg/dL (7.8-10.44); Carbon Dioxide 22 mmol/L (22-29); Chloride 104 mmol/L (98-107); Estimated GFR-MDRD Greater than 90; Globulin 3.1 g/dL (2.4-3.5); Glucose 123 mg/dL (70-105); Protein, Total 5.9 g/dL (6.0-8.3); Sodium 135 mmol/L (136-145)
[2019-07-18] MEDS: Enoxaparin Sodium 40 MG/0.4 ML SYRINGE SC SCH (08:56)
[2019-07-18] MEDS ORDERED: Famotidine 20 MG TAB PO SCH (09:00)
[2019-07-18] MEDS ORDERED: FLU VACC QS2019-20(6MOS UP)/PF 60 MCG/0.5 ML SYRINGE IM ONE (09:00)
--- NOTE | 2019-07-18 09:38 | PDOC.PALCO ---
Palliative Care Consult - Consult Details Requesting Physician: Dr Arita Reason for Consult: goals of care Family Members Present: Patient jasmyn Martínez" - Pertinent HPI 48 year old female with history of pancreatic cancer. Difficult to obtain history from patient, lethargic. Records reviewed, patient did confirm she did not follow up with Dr Riley as she was unsure if she wanted to pursue chemotherapy for palliation. Presented to the emergency room 07/17 for abdominal pain, diarrhea with increase in pain. States loose stool for the past "few weeks ". Poor appetite. Admitted for medical management. - Pertinent PMH Pancreatic cancer, COPD, Bipolar, GERD, biliary stent, history of chronic alcohol abuse - Social History Smoking: no tobacco exposure Alcohol Use: other (previous alcohol abuse, states last drink of alcohol was May) Living Situation: with partner - Medications MAR Reviewed: Yes - Allergies Allergies/Adverse Reactions: Allergies Allergy/AdvReac Type Severity Reaction Status Date / Time No Known Drug Allergies Allergy Verified 07/17/19 21:14 - Subjective Sleeping but arousable, tearful. Weakness, poor appetite, states "nothing tastes good". Generalized abdominal pain, headache, shortness of breath. Denies incontinence, vomiting, diarrhea - Objective Vital Signs: Vital Signs - Most Recent Temp Pulse Resp BP Pulse Ox 99.8 F H 90 20 118/80 100 07/18/19 05:50 07/18/19 03:50 07/18/19 03:50 07/18/19 03:50 07/18/19 03:50 Palliative Performance Scale: 40 - Physical Exam Constitutional: confusion, mild distress Deviation from normal: ill appearing, poor hygiene HEENT: moist MMs, EOMI Deviation from normal: icteric Respiratory: clear to auscultation bilateral, tachypnea Deviation from normal: short of breath, Cardiovascular: irregular Gastrointestinal: soft Deviation from normal: Tender Musculoskeletal: pulses present Neurological: moves all 4 limbs Psychiatric: A&O x 3 Deviation from normal: Tearful, depressed, Skin: cap refill <2 seconds Deviation from normal: brusing various stages of healing, icteric - Problem List (1) Palliative care encounter Code(s): Z51.5 - ENCOUNTER FOR PALLIATIVE CARE Current Visit: Yes Status: Acute (2) History of alcohol abuse Code(s): F10.11 - ALCOHOL ABUSE, IN REMISSION Current Visit: Yes Status: Acute (3) Obstructive jaundice Code(s): K83.1 - OBSTRUCTION OF BILE DUCT Current Visit: No Status: Acute (4) Pancreatic adenocarcinoma Code(s): C25.9 - MALIGNANT NEOPLASM OF PANCREAS, UNSPECIFIED Current Visit: No Status: Acute - Plan/Recommendations Plan: Initiated contact for Palliative Care, stump blower utilized for discussion as partner is fijian speaking only. Patient states she has no contact with her family, only support is her partner. He works in the day and is only able to assist at night in her care. Discussed disease trajectory, therapeutic listening. *Confirmed DNAR status *Unsure if she desires to seek palliation through chemo or hospice *Discussed with patient we will follow up in a discussion in relation to goals of care after she has oncology consult *Discussed that she would need to attempt to secure assistance for daytime for either home with hospice or seeking treatment at the Cancer clinic, as partner states he is unable to assist in daytime. *Spiritual care, Father Ananth consulted *Desires other fool choices, discussed slowly transitioning to full diet as she is able. Damaris Greer RN and I will continue to follow. [80] minutes spent on this encounter with >50% of the time in counseling and coordination of care. Thank you for this very appropriate consult.
--- NOTE | 2019-07-18 11:18 | CON ---
DATE OF CONSULTATION: 07/18/2019 REQUESTING PHYSICIAN: Pelon Arita MD REASON FOR CONSULTATION: Pancreatic cancer and biliary obstruction. HISTORY OF PRESENT ILLNESS: Dinorah Botello is a 48-year-old woman, previously seen by my GI colleague, Dr. Santosh Harmon. She was last hospitalized here and I met her in May of 2019, with acute cholangitis secondary to biliary obstruction. I performed ERCP on 05/17/2019 with placement of a plastic biliary stent and decompression of the bile duct, and she had rapid resolution of her infection. She was transferred to [facility] at that time, where evidently endoscopic ultrasound was performed with tissue sampling diagnostic for pancreatic cancer, then repeat ERCP with metal stent placement. The patient failed to follow up with Oncology after that time, she had not really decided on whether to pursue palliative chemotherapy. This was thought to be a nonoperable cancer. At any rate, she presented again to the hospital yesterday with fevers and significant worsening of her chronic abdominal pain over the past few days. She has been febrile reportedly up to 102 at home and up to 100.4 overnight last night. She is otherwise hemodynamically stable. She says her pain is severe and she is just very tired. Her LFTs are elevated again. It appears they had gone back down to normal range following stent placement in May, but now total bilirubin is back up to 4.3. She has been started on Zosyn. Palliative Care has seen her today as well, but the patient is not really sure whether she wants to pursue full comfort measures or not. REVIEW OF SYSTEMS: Full review of systems including constitutional, head, eyes, ears, nose, throat, GI, , cardiovascular, respiratory, musculoskeletal, neurologic systems is negative except as noted in the HPI. PAST MEDICAL HISTORY: 1. Pancreatic cancer, diagnosed in May 2019. 2. Biliary obstruction, status post multiple ERCPs in May 2019, eventual bare-metal stent placement at [facility]. 3. History of drug abuse. 4. History of noncompliance. 5. COPD. 6. Bipolar disorder. 7. Tubal ligation. FAMILY HISTORY: Her mother had coronary artery disease. SOCIAL HISTORY: The patient has been a heavy drinker for about 30 years. She also has history of recent drug abuse including cocaine and methamphetamines. ALLERGIES: NO KNOWN DRUG ALLERGIES. MEDICATIONS: Outpatient medications: 1. Tramadol. 2. Protonix. 3. Hydroxyzine. Inpatient medications: 1. Tylenol p.r.n. 2. Lovenox. 3. Ativan p.r.n. 4. Morphine p.r.n. 5. Protonix 40 mg daily. 6. Zosyn 3.375 g q.8 hours. PHYSICAL EXAMINATION: VITAL SIGNS: Temperature 99.5, was up to 100.4 overnight; pulse 88; blood pressure 123/87; and 100% oxygen saturation on room air. GENERAL: Chronically-ill 48-year-old woman, lying in bed, in talu-oz-pnmsevsm distress from abdominal pain, lethargic. Mental, she is drowsy but arousable. She is alert and oriented to person and place. SKIN: She is jaundiced. No rashes were palpable. Multiple tattoos. EYES: Scleral icterus. Extraocular eye movements intact. ENT: Mucous membranes moist. No oral lesions. LYMPH: No submandibular or supraclavicular lymphadenopathy. THYROID: Nontender to palpation. HEART: Regular rate and rhythm. LUNGS: Clear to auscultation bilaterally. ABDOMEN: Diffuse tenderness to palpation. Bowel sounds are hypoactive, but present. EXTREMITIES: No peripheral edema. VESSELS: Radial pulses 2+ bilaterally. LABORATORY STUDIES: WBC 7.5, hemoglobin 10.7, and platelets 170. Sodium 135, potassium 3.0, BUN 8, creatinine 0.65, total bilirubin 4.3, alkaline phosphatase 464, AST 96, and ALT 85. Toxicology screen is positive for opiates and amphetamines, methamphetamines and cocaine. IMAGING STUDIES: CT of the abdomen and pelvis performed yesterday afternoon demonstrates diffuse biliary dilation with distal metal biliary stent in place. There is persistent dilation of the pancreatic duct and persistent poorly-defined pancreatic head mass. There are some minimal free intraperitoneal fluid and some diffuse thickening of the colon as well. ASSESSMENT AND PLAN: 1. Obstructive jaundice. 2. Fever, concerning for recurrent cholangitis. 3. Pancreatic cancer, inoperable. 4. Diffuse abdominal pain, worsening recently, again concerning for development of recurrent cholangitis. Her presentation is very similar to her presentation with cholangitis from a couple of months ago. She has a larger metal stent in place at this time. I suspect that she has had progression of the primary tumor in either ingrowth through or around the stent. This is a difficult situation. The patient has not made any final decisions about pursuing hospice or comfort measures only. It would not really change her final end point, but on the other hand, ERCP might be of benefit in relieving current biliary obstruction if there is sludge that can be cleaned out, etc. If the biliary system could be decompressed, it would have benefits in terms of her pain as well. I discussed this with the patient as well as her significant other today, and they are agreeable to proceeding, so we will plan for ERCP later today. Continue with the [facility] in the meantime. If there is significant tumor ingrowth in her mental stent, there is really nothing I am going to be able to do to replace that here at this facility. Job ID: [id number]
--- NOTE | 2019-07-18 13:47 | PDOC.HOSPP ---
- Subjective Encounter Date: 07/18/19 Encounter Time: 13:45 Subjective: Still in a lot of pain. Says she is very tired of fighting and has no fight left. - Objective Vital Signs & Weight: Vital Signs (12 hours) Temp Pulse Resp BP BP Pulse Ox 07/18/19 12:00 98.7 F 86 16 127/84 99 07/18/19 10:00 99.5 F 88 18 123/87 100 07/18/19 08:00 100 07/18/19 05:50 99.8 F H 07/18/19 03:50 100.4 F H 90 20 118/80 100 Weight Weight 159 lb I&O: 07/17/19 07/18/19 07/19/19 06:59 06:59 06:59 Intake Total 2020 Balance 2020 Result Diagrams: 07/18/19 05:50 07/18/19 05:50 Hospitalist ROS - Medication Medications: Active Medications Generic Name Dose Route Start Last Admin Trade Name Freq PRN Reason Stop Dose Admin Acetaminophen 650 mg 07/18/19 00:08 07/18/19 03:54 Tylenol PO 650 mg Q4H PRN Administration Headache/Fever/Mild Pain (1-3) Enoxaparin Sodium 40 mg 07/18/19 09:00 07/18/19 08:56 Lovenox SC 40 mg 0900 CHACE Administration Piperacillin Sod/Tazobactam 100 mls @ 200 mls/hr 07/18/19 01:00 07/18/19 08: 56 Sod 3.375 gm/ Sodium Chloride IVPB 100 mls 0100,0900,1700 CHACE Administration Lactated Ringer's 1,000 mls @ 125 mls/hr 07/18/19 00:07 07/18/19 11:19 Lactated Ringer's IV 1,000 mls .Q8H CHACE Administration Lorazepam 1 mg 07/18/19 01:38 07/18/19 09:46 Ativan PO 1 mg Q4H PRN Administration Anxiety/Agitation Morphine Sulfate 2 mg 07/17/19 21:16 07/18/19 09:42 Morphine SLOW IVP 2 mg Q4H PRN Administration Pain Pantoprazole Sodium 40 mg 07/18/19 09:00 07/18/19 08:56 Protonix PO 40 mg DAILY CHACE Administration - Exam General Appearance: NAD, awake alert Heart: RRR, no murmur, no gallops, no rubs, normal peripheral pulses Respiratory: CTAB, no wheezes, no rales, no ronchi, normal chest expansion, no tachypnea, normal percussion Gastrointestinal: soft, no palpable masses, no hepatomegaly, no splenomegaly, no bruit, tender to palpation Skin: normal turgor Musculoskeletal: generalized weakness Psychiatric - other findings: Slightly sedated, tearful Hosp A/P (1) Bacteremia due to Klebsiella pneumoniae Code(s): R78.81 - BACTEREMIA Status: Acute (2) Staphylococcus aureus bacteremia Code(s): R78.81 - BACTEREMIA Status: Acute (3) Pancreatic adenocarcinoma Code(s): C25.9 - MALIGNANT NEOPLASM OF PANCREAS, UNSPECIFIED Status: Acute (4) Biliary obstruction Status: Acute (5) Cholangitis Code(s): K83.09 - OTHER CHOLANGITIS Status: Acute (6) COPD (chronic obstructive pulmonary disease) Status: Chronic - Plan Long discussion with the patient. Explained the two options of aggressive treatment and workup v. palliation and hospice. She has decided to pursue hospice. CM made aware. Dr. Mckinney notified. Can discharge anytime from this service if she is accepted to hospice services.
[2019-07-18] MEDS ORDERED: Morphine 2 MG/ML SYRINGE SLOW IVP PRN (16:11)
[2019-07-18] MEDS: Morphine 4 MG/ML VIAL SLOW IVP PRN ×2 (16:27→21:09)
--- NOTE | 2019-07-18 21:40 | CON ---
DATE OF CONSULTATION: REASON FOR CONSULTATION: Pancreatic cancer. HISTORY OF PRESENT ILLNESS: Ms. Botello is a 48-year-old female with past medical history of alcoholism, who originally was seen and admitted at [facility] in [place] in September 2018. She was diagnosed with pancreatitis and a pancreatic mass. She did not follow up. She then presented to our facility in May, where the pancreatic mass was causing diffuse pancreatic ductal dilation. She was transferred to [facility] and underwent an ERCP and EUS. Biopsy was positive for pancreatic adenocarcinoma. She had an E coli infection and was getting IV antibiotics in her PICC line. She was seen by Dr. Riley on June 09. She was to undergo financial clearance with [facility], but had not turned in any paperwork. She was given hydrocodone for pain and has not been seen since that time. She presented to the emergency room yesterday with complaints of pain. She underwent an abdominal and pelvis CT, which showed continued dilatation of the intrahepatic ducts. There was some free intraperitoneal fluid with some diffuse mesenteric fat stranding and diffuse thickening of the colon. She was seen by GI and Palliative Care. We were asked to see the patient as well. The patient was seen at bedside with her daughter. She is writhing in pain. States she is tired. She has continued to lose weight and last ate yesterday. She has run out of her [place] that was provided back in May. PAST MEDICAL HISTORY: 1. Locally advanced pancreatic cancer. 2. History of alcohol and cocaine use. 3. Asthma. 4. COPD. 5. Anxiety and depression. 6. Acid reflux. 7. Hemorrhoids. PAST SURGICAL HISTORY: 1. ERCP with stent placement. 2. Pancreatic biopsy with EUS. ALLERGIES: NO KNOWN DRUG ALLERGIES. HOME MEDICATIONS: 1. Atarax. 2. Protonix. 3. Ultram. 4. Portage. FAMILY HISTORY: Noncontributory. SOCIAL HISTORY: She is to a Sami-speaking spouse. Positive history of tobacco, alcohol, and cocaine and methamphetamine use. REVIEW OF SYSTEMS: Positive for abdominal pain and discomfort. Otherwise, negative. PHYSICAL EXAMINATION: VITAL SIGNS: Temperature is 98.7, pulse is 88, respiratory rate 16, BP is 127/84. She is 99% on room air. GENERAL: This is a chronically ill-appearing female, in moderate distress HEENT: Normocephalic, atraumatic. Pupils are equal and reactive to light. NECK: Supple. CV: Regular rate and rhythm. LUNGS: Clear. ABDOMEN: Tender. EXTREMITIES: No clubbing or cyanosis. SKIN: No rash. HEMATOLOGICAL: No petechiae or purpura. NEUROLOGICAL: She appears oriented. PERTINENT LABS AND X-RAYS: Current WBCs 7.5, hemoglobin 10.7, hematocrit 32.8, platelet count is 170,000. She has 79% neutrophils, 10% lymphocytes. Sodium 135, potassium 3.0, chloride 104, CO2 is 22, BUN is 8, creatinine is 0.65, bilirubin is 4.6, AST is 96, ALT is 85, alkaline phosphatase is 464. Serum total protein is 5.9, albumin is 2.8, globulin 3.1. She has opiates, amphetamines, methamphetamines and cocaine on her drug screen yesterday. ASSESSMENT: 1. Locally advanced pancreatic cancer. 2. Intractable pain. 3. History of alcohol and drug use. DISCUSSION: The patient has agreed to comfort care and focus on pain control. The plan is to refer her to [facility] inpatient unit for better control of her pain. She understands that there is no treatment if she accepts inpatient hospice. Her daughter was at bedside. This was all explained to her. She wishes to proceed. I will increase her morphine while we await disposition. Thank you for the consult on this unfortunate young lady. Job ID: [id number]
[2019-07-19] MEDS: Piperacillin/Tazobactam 3.375 GM in Sodium Chloride 0.9% 100 ML IVPB SCH ×3 (01:20→17:30)
[2019-07-19] MEDS: Morphine 4 MG/ML VIAL SLOW IVP PRN ×5 (01:24→17:27)
[2019-07-19] MEDS: Lorazepam 1 MG TAB PO PRN (03:05)
[2019-07-19] MEDS: Lactated Ringer's 1,000 ML IV SCH (05:35)
[2019-07-19 07:16] LABS: Band 5 % (5-11); Eosinophils 3 % (0-10); Lymphocytes 14 % (21-51); MDiff Complete? YES; Mean Corpuscular HGB CONC 32.9 g/dL (32.0-36.0); Mean Corpuscular Hemoglobin 30.5 pg (27.0-31.0); Mean Corpuscular Volume 92.7 fL (78.0-98.0); Mean Platelet Volume 9.8 fL (7.4-10.4); Monocytes 10 % (0-10); Neutrophil 68 % (42-75); Platelet Count 117 thou/uL (130-400); Platelet Morphology Comment Appears Adequate; RBC Distribution Width 13.2 % (11.5-14.5); Red Blood Cell (RBC) Count 3.28 mill/uL (4.20-5.40); White Blood Cell (WBC) Count 5.9 thou/uL (4.8-10.8)
[2019-07-19 07:41] LABS: ALT (SGPT) 67 U/L (8-55); AST (SGOT) 62 U/L (5-34); Albumin 2.6 g/dL (3.5-5.0); Alkaline Phosphatase 415 U/L (40-110); Anion Gap 11 mmol/L (10-20); BUN (Urea Nitrogen) 5 mg/dL (7.0-18.7); Bilirubin, Total 3.7 mg/dL (0.2-1.2); Calc. Creatinine Clearance 165 mL/min (70-130); Carbon Dioxide 26 mmol/L (22-29); Chloride 105 mmol/L (98-107); Estimated GFR-MDRD Greater than 90; Globulin 3.2 g/dL (2.4-3.5); Glucose 87 mg/dL (70-105); Protein, Total 5.8 g/dL (6.0-8.3); Sodium 139 mmol/L (136-145)
[2019-07-19] MEDS: Enoxaparin Sodium 40 MG/0.4 ML SYRINGE SC SCH (09:23)
--- NOTE | 2019-07-19 12:00 | PDOC.HOSPP ---
- Subjective Encounter Date: 07/19/19 Encounter Time: 12:00 Subjective: f/u for sepsis likely GI mediated on Zosyn in context of advanced pancreatic adenocarcinoma. Pt wanting to transition to hospice care at home and awaiting coordination with hospice provider. States increased abd pain currently. - Objective Vital Signs & Weight: Vital Signs (12 hours) Temp Pulse Resp BP Pulse Ox 07/19/19 08:00 99.1 F 88 22 H 121/69 93 L 07/19/19 00:00 98.6 F 78 18 124/78 96 Weight Admit Weight 159 lb Weight 159 lb I&O: 07/18/19 07/19/19 07/20/19 06:59 06:59 06:59 Intake Total 4132 Balance 4132 Result Diagrams: 07/19/19 05:25 07/19/19 07:17 Additional Labs: Microbiology 07/17/19 18:00 Nasal swab Influenza Types A,B Direct EIA - Final 07/17/19 18:00 Urine voided Urine Culture - Preliminary NO GROWTH AT 24 HOURS 07/17/19 16:30 Venous blood - Left Arm Blood Culture - Preliminary Streptococcus anginosus Group 07/17/19 15:50 Central Line - Left Brachiocephalic vein Blood Culture - Preliminary Klebsiella pneumoniae Alpha-Hemolytic Streptococcus Radiology Reviewed by me: Yes (CT abd/pel - pancreatic mass, diliation of CBD/ pancreatic duct, +stent) Hospitalist ROS - Medication Medications: Active Medications Generic Name Dose Route Start Last Admin Trade Name Freq PRN Reason Stop Dose Admin Acetaminophen 650 mg 07/18/19 00:08 07/18/19 03:54 Tylenol PO 650 mg Q4H PRN Administration Headache/Fever/Mild Pain (1-3) Enoxaparin Sodium 40 mg 07/18/19 09:00 07/19/19 09:23 Lovenox SC 40 mg 0900 CHACE Administration Piperacillin Sod/Tazobactam 100 mls @ 200 mls/hr 07/18/19 01:00 07/19/19 09: 24 Sod 3.375 gm/ Sodium Chloride IVPB 100 mls 0100,0900,1700 CHACE Administration Lactated Ringer's 1,000 mls @ 125 mls/hr 07/18/19 00:07 07/19/19 05:35 Lactated Ringer's IV 1,000 mls .Q8H CHACE Administration Lorazepam 1 mg 07/18/19 01:38 07/19/19 03:05 Ativan PO 1 mg Q4H PRN Administration Anxiety/Agitation Morphine Sulfate 4 mg 07/18/19 16:11 07/19/19 09:21 Morphine SLOW IVP 4 mg Q4H PRN Administration Severe Pain (7-10) Pantoprazole Sodium 40 mg 07/18/19 09:00 07/19/19 09:24 Protonix PO 40 mg DAILY CHACE Administration Tramadol HCl 50 mg 07/18/19 00:10 07/19/19 03:05 Ultram PO 50 mg QIDPRN PRN Administration Mild Pain (1-3) - Exam General Appearance: ill appearing General - other findings: agitated, moaning Eye: PERRL ENT: normocephalic atraumatic, no oropharyngeal lesions, dry oral mucosa Neck: supple, symmetric, no JVD, no thyromegaly, no lymphadenopathy Heart: RRR, no gallops, no rubs, normal peripheral pulses Respiratory: CTAB, no wheezes, no rales, no ronchi, normal chest expansion Gastrointestinal: normal bowel sounds Gastrointestinal - other findings: + TTP diffusely, mild distention Extremities: no cyanosis, no clubbing Skin: normal turgor, no lesions Neurological: cranial nerve grossly intact, no new deficit Musculoskeletal: normal tone, generalized weakness Psychiatric: A&O x 3 Hosp A/P (1) Bacteremia due to Klebsiella pneumoniae Code(s): R78.81 - BACTEREMIA Status: Acute Plan: Continue Zosyn, consider oral option of abx for home (2) Staphylococcus aureus bacteremia Code(s): R78.81 - BACTEREMIA Status: Acute Plan: See #1 above, likely GI source given advanced pancreatic adenocarcinoma (3) Acute liver failure Status: Acute Plan: Secondary to pancreatic adenocarcinoma, persistent (4) Pancreatic adenocarcinoma Code(s): C25.9 - MALIGNANT NEOPLASM OF PANCREAS, UNSPECIFIED Status: Chronic Plan: End-stage process, Hospice at home once coordinated with provider (5) Polysubstance abuse Code(s): F19.10 - OTHER PSYCHOACTIVE SUBSTANCE ABUSE, UNCOMPLICATED Status: Acute Plan: Supportive - Plan plan discussed w/ family, continue antibiotics, 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
[2019-07-19] MEDS: Acetaminophen 325 MG TAB PO PRN (17:26)
[2019-07-19 17:50] VITALS: BP 129/78; TEMP 100.5
--- NOTE | 2019-07-19 23:54 | DIS ---
DATE OF ADMISSION: 07/17/2019 DATE OF DISCHARGE: 07/19/2019 DISCHARGE DIAGNOSES: 1. Pancreatic adenocarcinoma, end-stage. 2. Polysubstance abuse. 3. Bacteremia due to Klebsiella pneumonia. 4. Staphylococcus aureus bacteremia. 5. Acute liver failure. CONSULTATIONS: 1. Medical Oncology Service. 2. Palliative care/hospice service. PERTINENT LABORATORY AND X-RAY FINDINGS: Potassium ranged between 3.0 to 3.7. AST ranged between 62-122, ALT ranged between 67-86. Total bilirubin ranged between 3.7 to 4.6, alkaline phosphatase ranged between 415-571. CBC showed a hemoglobin ranged between 10.0 to 11.5. Urine drug screen dated 07/17/2019, positive for opiates, amphetamines, methamphetamines, and cocaine. Blood cultures x2 dated 07/17/2019, showed Klebsiella pneumonia and alpha hemolytic Streptococcus species in addition to Streptococcus anginosus group species. Influenza A and B antigen on 07/17/2019, negative. Urine culture dated 07/17/2019, showed no growth at [address] of the abdomen and pelvis dated 07/17/2019, showed persistent dilation of the intrahepatic ducts with new indwelling distal common duct stent with persistent dilatation of the pancreatic duct and poorly defined pancreatic head mass. Progressive diffuse thickening of the colon consistent with nonspecific colitis. Portable chest x-ray dated 07/17/2019, showed no acute cardiopulmonary process. HOSPITAL COURSE: The patient was initially admitted after presenting with increasing abdominal pain in the context of pancreatic adenocarcinoma and chronic alcohol abuse. The patient had poor oral intake and decreased functional status. The patient was placed on IV morphine sulfate in addition to oral pain control. The patient received IV fluids and general supportive management. The patient was evaluated by Medical Oncology Service with recommendations for general supportive management. Due to the patient's end-stage process and poor functional status and clinical decline, the patient was deemed an appropriate candidate for ongoing palliative care services. The patient decided to pursue comfort measures, as well as hospice care during the hospital stay. The patient was evaluated by the hospice agency and will transition to inpatient hospice after discharge. The patient's vital signs remained stable during the hospital course, however, patient did require IV and oral narcotics for pain control. I have examined the patient at the time of discharge and discussed followup instructions. The patient verbalized understanding and agreement ready for discharge to inpatient hospice 07/19/2019. DISCHARGE MEDICATIONS: 1. Dulcolax 10 mg per rectum daily p.r.n. 2. Jonancy 5/325 mg one tablet p.o. q.4 to 6 hours p.r.n. 3. Hydroxyzine 25 mg p.o. t.i.d. p.r.n. 4. Loperamide 2 mg p.o. daily p.r.n. 5. Ativan 1 mg p.o. q.4 hours p.r.n. anxiety. 6. Morphine 4 mg slow IV push q.4 hours p.r.n. 7. Zofran 4 mg IV push q.6 hours p.r.n. 8. Protonix 40 mg p.o. daily. 9. Tramadol 50 mg p.o. q.i.d. p.r.n. pain. FOLLOWUP: The patient will follow up with Hospice at [facility]. CONDITION ON DISCHARGE: Guarded. ACTIVITY: Ad-starr. DIET: Regular as tolerated. CODE STATUS: Do not attempt resuscitation. DISPOSITION: Discharged to Hospice at [facility], 07/19/2019. TIME SPENT: Total time preparing and coordinating discharge, 35 minutes. Job ID: [id number]
--- NOTE | 2019-07-22 02:17 | PQF ---
JAZZMINE RICE CHARLES DO [id number] [id number] CLINICAL DOCUMENTATION CLARIFICATION FORM: POST DISCHARGE Addendum to original discharge summary date: ____ Late entry note date: __ DATE: 07/22/19 ATTN: Andres Kaufman Please exercise your independent, professional judgment in responding to the clarification form. Clinical indicators are provided on the bottom of this form for your review Can you please further specify if Sepsis is ruled in pr ruled out? Sepsis [ ] Ruled in diagnosis [ ] Continue to treat [ ] Resolved [ x ] Ruled out diagnosis [ ] Cannot rule out diagnosis [ ] Other diagnosis [ ] Unable to determine In addition, please specify: Present on Admission (POA): [ ] Yes [ x ] No [ ] Unable to determine For continuity of documentation, please document condition throughout progress notes and discharge summary. Thank You. CLINICAL INDICATORS - SIGNS / SYMPTOMS / LABS DS 07/19 pg.1- blood culture x2 dated 07/17/2019 showed Klebsiella pneumonia and alpha hemolytic streptococcus species DS pg.1 07/19- admitted after presenting with increasing abdominal pain in the context of pancreatic adenocarcinoma and chronic alcohol abuse Hospitalist PN 07/19 pg.1- d/u for sepsis likely GI medicated Zosyn in the context of advanced pancreatic adenocarcinoma Hospitalist PN 07/19 pg-"Bacteremia" H and P 07/17 pg DS pg.1- Progressive diffuse thickening of the colon consistent with nonspecific colitis RISK FACTORS Chronic alcohol abuse- H and P pg.1 Pancreatic cancer- H and P pg.1 Acute liver failure- DS pg.1 TREATMENTS Chest X ray 07/17 Abdomen/pelvis 07/17 Palliative Consult 07/18 IV fluid- NOV 18 Blood culture- microbiology 07/17 Zosyn 3.375mg IV- NOV 18 (This form is maintained as a part of the permanent medical record) 2014 [employer]. All Rights Reserved [email or web address] [not provided] MTDD
== END 2019-07-19 17:52 | disposition hospice, inpatient (51) | DRG 435 ==
LOC: ERS 14:24 → ONC 20:52 → EEVIPCON 20:52
PROVIDERS: ADMIT Internal Medicine; ATTEND Internal Medicine
DX: C25.0 Malignant neoplasm of head of pancreas (principal); K83.1 Obstruction of bile duct; K72.00 Acute and subacute hepatic failure without coma; K83.09 Other cholangitis; R78.81 Bacteremia; Z51.5 Encounter for palliative care; Z66 Do not resuscitate; J44.9 Chronic obstructive pulmonary disease, unspecified; Z23 Encounter for immunization; F31.9 Bipolar disorder, unspecified; K21.9 Gastro-esophageal reflux disease without esophagitis; F14.10 Cocaine abuse, uncomplicated; F10.20 Alcohol dependence, uncomplicated; F15.10 Other stimulant abuse, uncomplicated; F41.9 Anxiety disorder, unspecified; B96.1 Klebsiella pneumoniae [K. pneumoniae] as the cause of diseases classified elsewhere; B95.61 Methicillin susceptible Staphylococcus aureus infection as the cause of diseases classified elsewhere; K52.89 Other specified noninfective gastroenteritis and colitis; Z98.51 Tubal ligation status; Z79.899 Other long term (current) drug therapy; F17.210 Nicotine dependence, cigarettes, uncomplicated
CPT/HCPCS: 36415; 71045; 74177; 80053; 80306; 81003; 81015; 81025; 83605; 85025; 87040; 87077; 87086; 87149; 87186; 87804; J1170; J1642; J1650; J2270; J2543; J3490; Q9967

== ENCOUNTER 2019-08-24 11:46 | Emergency (ER) | payer MEDICAID ==
[2019-08-24] MEDS ORDERED: HYDROmorphone 0.5 MG/0.5 ML SYRINGE ONE ×2 (12:24)
[2019-08-24] MEDS ORDERED: HYDROcodone/Acetaminophen 10/325 mg Tablet ONE (15:06)
== END 2019-08-24 15:15 | disposition home or self-care (01) ==
LOC: ERS 11:46
DX: C25.9 Malignant neoplasm of pancreas, unspecified (principal); F41.9 Anxiety disorder, unspecified; F31.9 Bipolar disorder, unspecified; F17.210 Nicotine dependence, cigarettes, uncomplicated; K21.9 Gastro-esophageal reflux disease without esophagitis; J44.9 Chronic obstructive pulmonary disease, unspecified
CPT/HCPCS: 96374; J1170

== ENCOUNTER 2019-09-05 13:21 | Inpatient (IN) | payer MEDICAID, OTHER ==
[2019-09-05] MEDS ORDERED: Fentanyl 100 MCG/2 ML VIAL ONE ×4 (13:43→16:16)
[2019-09-05] MEDS ORDERED: Piperacillin/Tazobactam 3.375 GM VIAL ONE (14:23)
--- NOTE | 2019-09-05 14:23 | RAD ---
EXAM: Single view of the chest HISTORY: Epigastric abdominal pain COMPARISON: 07/17/2019 FINDINGS: Single view of the chest shows a normal sized cardiomediastinal silhouette. There is no davion dence of consolidation, mass, or pleural effusion. The bones are unremarkable. IMPRESSION: No evidence of acute cardiopulmonary disease
--- NOTE | 2019-09-05 14:23 | CT ---
CT ABDOMEN AND PELVIS HISTORY: Jaundice. Epigastric pain. Pancreatic cancer. COMPARISON: 08/24/2019, 07/17/2019. Procedure: Multiple contiguous axial images were obtained and a CT of the abdomen and pelvis with IV contrast. C oronal reformats were performed. FINDINGS: Lower Chest: Scar and/or atelectasis in the lung bases. No consolidation or masses. Vessels: Normal caliber aorta. Heart: Normal heart size. No significant pericardial fluid. Abdomen: Portal vein:Patent. Gallbladder: Moderately distended gallbladder. There is a small amount of pericholecystic fluid. Ther e is redemonstration of intrahepatic biliary dilatation. The degree of intrahepatic biliary dilatation appears to have increased when compared to the previous examination. Common bile duct curr ently measures 2.0 cm on the coronal reformatted images (previously measuring 1.5 cm on the coronal reformatted images. There is redemonstration of a stent in the common bile duct, unchanged in positio n. Liver: No enhancing masses within the hepatic parenchyma. Pancreas: Redemonstration of a hypodensity involving the proximal body of the pancreas, compatible wi th known neoplasm. Currently, this mass measures 3.2 cm anterior-posterior by 1.9 cm medial lateral. Previously, this mass measured 3.3 x 3.9 cm. There is dilatation of the pancreatic duct. Spleen: within normal limits. Adrenals: within normal limits. Kidneys: Symmetric enhancement. No obstructive uropathy. Peritoneum: There is evidence of scattered free fluid in the abdomen and pelvis. There is edematous c hange involving the mesentery. Bowel: Limited evaluation due to the lack of oral contrast administration. No evidence of bowel obstr uction. Ileocecal junction is unremarkable. Normal caliber appendix. Scattered fecal material in a nondistended, nondilated colon. Mucosal prominence of the ascending colon and proximal transverse col on likely due to inadequate distention. Mesentery and Retroperitoneum: No enlarged mesenteric or retroperitoneal lymph nodes. Abdominal Wall: within normal limits. Pelvis: Reproductive Organs: Reproductive organs are unremarkable. Pelvis: No mass, lymphadenopathy, free air. There is free fluid. Bladder: within normal limits. Bones: within normal limits. IMPRESSION: 1. Interval increased dilatation of the intrahepatic biliary system as well as distention of the gall bladder. Though a common bile duct stent is appreciated, the possibility of stent malfunction is raised given interval increase in the intrahepatic and extrahepatic biliary system 2. Redemonstration of a pancreatic mass with associated dilatation of the pancreatic duct. 3. Redemonstration of colonic mucosal thickening, nonspecific. Findings may be due to inadequate dist ention. Correlate for infectious or inflammatory colitis. 4. Nonspecific free fluid in the abdomen or pelvis. The degree of free fluid in the pelvis has slight ly increased since the previous examination. Transcribed Date/Time: 09/05/2019 2:33 PM
[2019-09-05 15:24] LABS: Hemoglobin 10.6 g/dL (12.0-16.0); Mean Corpuscular HGB CONC 33.4 g/dL (32.0-36.0); Mean Corpuscular Hemoglobin 29.6 pg (27.0-31.0); Mean Corpuscular Volume 88.6 fL (78.0-98.0); Mean Platelet Volume 8.3 fL (7.4-10.4); Platelet Count 558 thou/uL (130-400); RBC Distribution Width 17.1 % (11.5-14.5); Red Blood Cell (RBC) Count 3.58 mill/uL (4.20-5.40); White Blood Cell (WBC) Count 18.9 thou/uL (4.8-10.8)
[2019-09-05 15:38] LABS: Anisocytosis SLIGHT = 6-15 cells (100X) (0-5/hpf); Band 1 % (5-11); Eosinophils 1 % (0-10); Lymphocytes 11 % (21-51); MDiff Complete? YES; Monocytes 2 % (0-10); Neutrophil 85 % (42-75); Platelet Morphology Comment Appears Increased; Polychromasia SLIGHT = 2-3 cells (100X) (0-2/hpf); Target Cells SLIGHT = 2-5 cells (100X) (0-1/hpf)
[2019-09-05 15:42] LABS: Lactic Acid 1.2 mmol/L (0.5-2.2)
[2019-09-05 15:48] LABS: ALT (SGPT) 49 U/L (8-55); AST (SGOT) 59 U/L (5-34); Albumin 2.5 g/dL (3.5-5.0); Alkaline Phosphatase 903 U/L (40-110); Anion Gap 13 mmol/L (10-20); BUN (Urea Nitrogen) 6 mg/dL (7.0-18.7); Bilirubin, Total 23.9 mg/dL (0.2-1.2); Calc. Creatinine Clearance 0 mL/min (70-130); Calcium 7.5 mg/dL (7.8-10.44); Carbon Dioxide 28 mmol/L (22-29); Chloride 91 mmol/L (98-107); Estimated GFR-MDRD Greater than 90; Glucose 82 mg/dL (70-105); Lipase 25 U/L (8-78); Protein, Total 7.5 g/dL (6.0-8.3); Sodium 130 mmol/L (136-145)
[2019-09-05 15:54] LABS: Potassium 2.1 mmol/L (3.5-5.1)
[2019-09-05] MEDS ORDERED: Potassium Chloride 20 MEQ TAB ONE (16:17)
[2019-09-05] MEDS ORDERED: Morphine 4 MG/ML VIAL ONE (17:26)
[2019-09-05 17:55] LABS: Bilirubin 4+ (Negative); Blood, Urine Negative (Negative); Clarity Clear (Clear); Glucose, Urine (Dipstick) Normal (Negative); Leukocyte Negative Leu/uL (Negative); Nitrite Negative (Negative); Protein, Urine (Dipstick) 20 mg/dL (Neg-Trace); Urobilinogen Normal mg/dL (Less than 2)
[2019-09-05] MEDS ORDERED: Ondansetron ODT 4 MG TAB PO PRN (18:03)
[2019-09-05] MEDS ORDERED: Guaifenesin DM 100-10/5 ML UDCUP PO PRN (18:03)
[2019-09-05] MEDS ORDERED: Senokot S 8.6-50 MG TAB PO PRN (18:03)
[2019-09-05] MEDS ORDERED: Loperamide HCl 2 MG CAP PO PRN (18:03)
[2019-09-05] MEDS ORDERED: Sodium Chloride 0.9% (PF) 10 ML VIAL FS PRN (18:16)
--- NOTE | 2019-09-05 19:03 | HP ---
PRIMARY CARE PHYSICIAN: Ashish Lozano. CHIEF COMPLAINT: Abdominal pain. HISTORY OF PRESENT ILLNESS: This is a 48-year-old white female with a known history of pancreatic adenocarcinoma from chronic alcohol abuse. She has been seen in the hospital multiple times, most recently was admitted at the beginning of July. At that time, Hematology/Oncology was consulted. She had had multiple stents placed to her common bile duct; however, she was still continued to have a dilation of the duct, pain, jaundice, and bacteremia. At that time, she was also continued to be positive for opiates, amphetamines, methamphetamines, and cocaine in her blood. She, at that time, decided to transition to hospice care, was discharged to [facility]. The patient presented back to the emergency room on the of this month stating that she had left [facility]. She was not able to specify why, so that she had walked out one day. She stated that she still wanted to pursue treatment to live at that time when she is seen in the ER, was asking for large amounts of pain medicine. Hematology/Oncology was consulted from the emergency room. They informed to the ER doctor that the patient was beyond any further treatment at this time, and the ER doctor did talk to the patient, and the patient eventually agreed to go home with followup as outpatient with Oncology to look at getting back on hospice. She has not done any sort of followup since then, presented today to the emergency room in severe abdominal pain. She has been getting worse and worse for the last week or 2. She also has nausea and vomiting, was only able to take clear liquids on and off but not consistently. She has severe constipation. She has trouble urinating, and she reports some subjective fevers on and off, she was not febrile in the emergency room. The patient now states that she is ready to , that she knows this, this disease will kill her, and she is ready for that. She is a hs-ujj-abuafvc-resuscitation. She is interested in getting back up with hospice. REVIEW OF SYSTEMS: CONSTITUTIONAL: Positive for fever and chills. HEENT: Eyes, no double vision or blurred vision. ENT, she has congestion. No sore throat. CARDIOVASCULAR: No chest pain. No palpitations or racing heart. PULMONARY: She has had some cough, but no shortness of breath. GASTROINTESTINAL: See HPI. GENITOURINARY: No dysuria, but she has difficulty urinating, she usually has to get up to be able to urinate. She can do it when lying in the bed. Ever since her cancer got worse. MUSCULOSKELETAL: No focal areas of muscle aches or joint pains, mostly just abdominal pain. SKIN: No rashes or lesions. She has noticed, though she is extremely jaundiced. NEUROLOGIC: She says she has diffuse weakness in bilateral lower extremities, though she is able to ambulate some. PAST MEDICAL HISTORY: 1. Pancreatic cancer with obstructive jaundice. 2. COPD. 3. Bipolar disorder. 4. Gastroesophageal reflux disease. PAST SURGICAL HISTORY: 1. Tubal ligation. 2. Multiple biliary stents. 3. ERCPs. FAMILY HISTORY: Noncontributory. SOCIAL HISTORY: The patient has a longstanding history of alcohol abuse along with polysubstance abuse. She also smokes cigarettes. She is , lives with her partner. ALLERGIES: NO KNOWN DRUG ALLERGIES. CURRENT MEDICATIONS: She has been taking some Tylenol with Codeine No. 3. PHYSICAL EXAMINATION: VITAL SIGNS: Blood pressure 107/75, pulse 85, respirations 20, temperature 97.2, and O2 saturation 98% on room air. GENERAL: This is a well-developed, thin, white female, in acute distress secondary to pain. HEENT: Pupils are equal, round, and reactive to light. She does have very bright scleral icterus. Oropharynx clear without lesions, erythema, or exudate. NECK: Supple. No lymphadenopathy. No thyroid nodules or enlargement. HEART: Regular rate and rhythm. No murmurs, rubs, or gallops. LUNGS: Clear to auscultation bilaterally. No wheezes, crackles, or rhonchi. ABDOMEN: Very tender to palpation especially in the upper abdomen; however, no rigidity, relatively soft. Normal bowel sounds. EXTREMITIES: No clubbing, cyanosis, or edema. SKIN: She has bright yellow jaundice. NEUROLOGIC: Intact strength and movement in all extremities. No facial droop. PSYCHIATRIC: The patient is alert and oriented x3. She is very anxious and agitated in her manner. LABORATORY DATA: [place] [address] up from 5.9 in her last hospitalization. Hemoglobin 10.6, hematocrit 31.7, platelet count 558. Complete metabolic panel is notable for potassium 2.1, sodium of 130, normal creatinine. Elevated total bilirubin of 23.9, this is up from 15 earlier this month and from 3.7 at her last hospitalization when she was put on hospice. Her albumin is low at 2.5. IMAGING DATA: CT of the abdomen and pelvis with contrast shows interval dilatation of the intrahepatic biliary system as well, distention of the gallbladder. There is a common bile duct stent appreciated, which is likely malfunctioning given increasing dilatation of the biliary system, continued redemonstration of the pancreatic mass, and colonic mucosal thickening, nonspecific free fluid in the abdomen. Chest x-ray, I did review the chest x-ray done in the emergency room along with the radiologist's report. There is no evidence of acute cardiopulmonary disease. ASSESSMENT: Pancreatic adenocarcinoma with obstructive jaundice and likely ascending cholangitis. The patient does have an elevated white blood cell count, though no other symptoms of sepsis at this time. I have discussed her prognosis with her, and she wants to be comfort care at this time. I just want symptoms managed. She is not looking for any sort of curative treatment. At this point, we will hold off any antibiotics. We will give IV fluids, IV pain medications. As she is not able to pee, we can also put in a Isaac catheter to deflate her bladder. We will give her medication to help with her constipation and nausea and vomiting as well. I will consult Palliative Care, and then see if Hospice is willing to look at taking her back or if she can go home with a different hospice agency. For now, we will treat her with IV and oral pain medications. CODE STATUS: I did discuss with the patient. She is a hn-awi-mpjarhj-resuscitation. Her closest relative is her mother, Danette Odom. I do not see any issue with the medical power of estate attorney having been filled out at all. Job ID: [id number]
[2019-09-05] MEDS: Morphine 4 MG/ML VIAL SLOW IVP PRN ×2 (19:40→23:43)
[2019-09-05] MEDS: Ondansetron PF 4 MG/2 ML Vial IVP PRN (19:40)
[2019-09-05 20:33] VITALS: BMI 22.6
[2019-09-05] MEDS ORDERED: Famotidine/PF 20 mg/2ml Vial SLOW IVP SCH (21:00)
[2019-09-05] MEDS: HYDROcodone/Acetaminophen 5/325 mg Tablet PO PRN (21:46)
[2019-09-06] MEDS: HYDROcodone/Acetaminophen 5/325 mg Tablet PO PRN ×3 (02:03→23:31)
[2019-09-06] MEDS: Morphine 4 MG/ML VIAL SLOW IVP PRN ×3 (05:06→21:20)
[2019-09-06] MEDS: Ondansetron PF 4 MG/2 ML Vial IVP PRN ×2 (05:06→21:19)
[2019-09-06] MEDS: NS 0.9% w/ 40 MEQ KCL 1,000 ML IV SCH ×3 (08:22→20:20)
[2019-09-06] MEDS: Pantoprazole 40 MG VIAL IVP SCH (08:23)
[2019-09-06] MEDS: Polyethylene Glycol 3350 17 GM Packet PO SCH (08:25)
[2019-09-06] MEDS ORDERED: Morphine 10 MG/0.5 ML ORAL SYRINGE SL PRN (10:15)
[2019-09-06] MEDS ORDERED: HYDROmorphone 2 MG/ML VIAL SLOW IVP PRN (10:16)
--- NOTE | 2019-09-06 10:18 | PDOC.HOSPP ---
- Subjective Encounter Date: 09/06/19 Encounter Time: 10:17 Subjective: C/o abdominal and back pain and states that the current dose of her pain medications do not provide adequate relief. Reports nausea and poor po intake. Reports yellowing of eyes and urine. Has constipation. No CP, SOB. No fever, chills. - Objective Vital Signs & Weight: Vital Signs (12 hours) Temp Pulse Resp BP Pulse Ox 09/06/19 03:40 98.5 F 82 18 127/77 98 09/05/19 23:35 98.3 F 84 18 132/78 97 Weight Admit Weight 139 lb 15.896 oz Weight 139 lb 15.896 oz I&O: 09/05/19 09/06/19 09/07/19 06:59 06:59 06:59 Intake Total 440 Output Total 950 Balance -510 Result Diagrams: 09/05/19 15:09 09/05/19 15:09 Hospitalist ROS - Medication Medications: Active Medications Generic Name Dose Route Start Last Admin Trade Name Freq PRN Reason Stop Dose Admin Potassium Chloride/Sodium Chloride 1,000 mls @ 100 mls/hr 09/06/19 08:15 08:22 Ns 0.9% W/ 40 Meq Kcl IV 1,000 mls .Q10H CHACE Administration Ondansetron HCl 4 mg 09/05/19 18:03 09/06/19 05:06 Zofran IVP 4 mg Q6H PRN Administration Nausea/Vomiting Pantoprazole Sodium 40 mg 09/06/19 09:00 09/06/19 08:23 Protonix IVP 40 mg DAILY CHACE Administration Polyethylene Glycol 17 gm 09/06/19 09:00 09/06/19 08:25 Miralax PO 17 gm DAILY CHACE Administration Sodium Chloride 10 ml 09/05/19 18:16 09/05/19 23:43 Flush - Normal Saline IVF 10 ml PRN PRN Administration Saline Flush - Exam General Appearance: awake alert, ill appearing Eye: PERRL, scleral icterus ENT: normocephalic atraumatic, dry oral mucosa Neck: supple, no thyromegaly, no lymphadenopathy Heart: RRR, no murmur, no gallops, no rubs, normal peripheral pulses Respiratory: CTAB, no wheezes, no rales, no ronchi, normal chest expansion Gastrointestinal: soft, normal bowel sounds, tender to palpation (epigastric region) Extremities: no cyanosis, no clubbing Hosp A/P (1) Pancreatic adenocarcinoma Code(s): C25.9 - MALIGNANT NEOPLASM OF PANCREAS, UNSPECIFIED Status: Chronic Plan: Was on inpatient hospice but she states she woke up one day feeling terrified and hence, she left She states that she is currently homeless as her home has damage She is requesting hospice at SNF I've consulted case management to arrange the same Opioid meds adjusted to provide optimal pain relief Terminal with guarded prognosis (2) Hyponatremia Code(s): E87.1 - HYPO-OSMOLALITY AND HYPONATREMIA Status: Acute Plan: Due to dehydration IVF replacement (3) Hypokalemia Code(s): E87.6 - HYPOKALEMIA Status: Acute Plan: IVF replacement (4) Obstructive jaundice Code(s): K83.1 - OBSTRUCTION OF BILE DUCT Status: Chronic Plan: CT abd/pelvis with worsening intrahepatic and extrahepatic biliary dilation and concern for stent malfunction I've consulted GI and DW the case with Dr. 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
[2019-09-06] MEDS ORDERED: HYDROmorphone 10 mg/100 ml CADD IVPB PRN (16:06)
[2019-09-06] MEDS ORDERED: diphenhydrAMINE 50 MG/ML VIAL IVP PRN (16:06)
[2019-09-06] MEDS ORDERED: Ondansetron PF 4 MG/2 ML Vial IVP PRN (16:06)
[2019-09-06] MEDS ORDERED: diphenhydrAMINE 50 MG/ML VIAL IM PRN (16:06)
[2019-09-06] MEDS ORDERED: Naloxone HCl 0.4 mg/ml Vial IV PRN (16:06)
[2019-09-06] MEDS ORDERED: Promethazine HCl 25 MG/ML VIAL IM PRN (16:06)
[2019-09-06] MEDS ORDERED: diphenhydrAMINE 25 MG CAP PO PRN (16:06)
[2019-09-06] MEDS ORDERED: Zolpidem Tartrate 5 MG TAB PO PRN (16:06)
[2019-09-06] MEDS ORDERED: Communication Order-Pharmacy FS PRN (16:15)
[2019-09-07] MEDS: Morphine 4 MG/ML VIAL SLOW IVP PRN ×5 (01:31→21:07)
[2019-09-07] MEDS: NS 0.9% w/ 40 MEQ KCL 1,000 ML IV SCH (05:41)
[2019-09-07] MEDS: HYDROcodone/Acetaminophen 5/325 mg Tablet PO PRN ×4 (05:41→18:25)
[2019-09-07] MEDS: Pantoprazole 40 MG VIAL IVP SCH (07:58)
[2019-09-07] MEDS: Polyethylene Glycol 3350 17 GM Packet PO SCH (07:58)
[2019-09-07 10:59] LABS: Anion Gap 14 mmol/L (10-20); BUN (Urea Nitrogen) 6 mg/dL (7.0-18.7); Calc. Creatinine Clearance 162 mL/min (70-130); Calcium 7.1 mg/dL (7.8-10.44); Carbon Dioxide 23 mmol/L (22-29); Chloride 103 mmol/L (98-107); Estimated GFR-MDRD Greater than 90; Glucose 151 mg/dL (70-105); Potassium 4.1 mmol/L (3.5-5.1); Sodium 136 mmol/L (136-145)
--- NOTE | 2019-09-07 11:40 | PRG ---
DATE OF SERVICE: 09/07/2019 SUBJECTIVE: This is a 48-year-old female with metastatic pancreatic cancer biliary obstruction, status post metal stent placement a couple of months ago in [place]. The patient has no abdominal pain, nausea, or vomiting. She is actually feeling better today. She is having nausea and vomiting, tolerating regular diet. OBJECTIVE: VITAL SIGNS: Afebrile, pulse is 87, and blood pressure 104/79. HEENT: Deeply icteric. CARDIOVASCULAR SYSTEM: Within normal limits. LUNGS: Within normal limits. ABDOMEN: Soft. Abdomen is nondistended. She is mildly tender across the upper abdomen. There is no rebound or guarding. LABORATORY DATA: There are no labs done from yesterday as she has severe hypokalemia with potassium of 2.1. Sodium is 130. RECOMMENDATIONS: 1. Continue diet as tolerated. 2. Stat BMP today and make sure the potassium back to normal. I will let Dr. Mckinney to decide if they want to do on the ERCP and stent placement. Job ID: [id number]
--- NOTE | 2019-09-07 14:57 | PDOC.HOSPP ---
- Subjective Encounter Date: 09/07/19 Encounter Time: 11:20 Subjective: Pt. reports she did not like the dilaudid WAGE HAND. She reports good pain control on PO opioid regimen. - Objective Vital Signs & Weight: Vital Signs (12 hours) Temp Pulse Resp BP Pulse Ox 09/07/19 11:38 98.8 F 88 18 119/82 98 09/07/19 08:00 96 09/07/19 07:37 98.7 F 87 16 104/71 96 09/07/19 03:53 98.6 F 88 18 119/74 96 Weight Admit Weight 139 lb 15.896 oz Weight 139 lb 15.896 oz I&O: 09/06/19 09/07/19 09/08/19 06:59 06:59 06:59 Intake Total 440 1800 Output Total 950 1500 Balance -510 300 Result Diagrams: 09/05/19 15:09 09/07/19 09:57 Hospitalist ROS - Medication Medications: Active Medications Generic Name Dose Route Start Last Admin Trade Name Freq PRN Reason Stop Dose Admin Hydrocodone Bitart/Acetaminophen 1 tab 09/06/19 21:12 09/07/19 14:28 [place] 5/325 PO 1 tab Q4H PRN Administration Pain Morphine Sulfate 4 mg 09/06/19 21:12 09/07/19 12:46 Morphine SLOW IVP 4 mg Q4H PRN Administration Pain Ondansetron HCl 4 mg 09/05/19 18:03 09/06/19 21:19 Zofran IVP 4 mg Q6H PRN Administration Nausea/Vomiting Pantoprazole Sodium 40 mg 09/06/19 09:00 09/07/19 07:58 Protonix IVP 40 mg DAILY CHACE Administration Polyethylene Glycol 17 gm 09/06/19 09:00 09/07/19 07:58 Miralax PO 17 gm DAILY CHACE Administration Sodium Chloride 10 ml 09/05/19 18:16 09/05/19 23:43 Flush - Normal Saline IVF 10 ml PRN PRN Administration Saline Flush - Exam General Appearance: awake alert, ill appearing Eye: PERRL, scleral icterus ENT: normocephalic atraumatic, moist mucosa Heart: RRR, no murmur, normal peripheral pulses Respiratory: CTAB, no rales, normal chest expansion Hosp A/P (1) Pancreatic adenocarcinoma Code(s): C25.9 - MALIGNANT NEOPLASM OF PANCREAS, UNSPECIFIED Status: Chronic (2) Hyponatremia Code(s): E87.1 - HYPO-OSMOLALITY AND HYPONATREMIA Status: Acute (3) Hypokalemia Code(s): E87.6 - HYPOKALEMIA Status: Acute (4) Obstructive jaundice Code(s): K83.1 - OBSTRUCTION OF BILE DUCT Status: Chronic (5) Polysubstance abuse Code(s): F19.10 - OTHER PSYCHOACTIVE SUBSTANCE ABUSE, UNCOMPLICATED Status: Chronic - Plan Hosp A/P (1) Pancreatic adenocarcinoma Code(s): C25.9 - MALIGNANT NEOPLASM OF PANCREAS, UNSPECIFIED Status: Chronic Plan: She is requesting hospice at [facility] I've consulted case management to arrange the same Opioid meds adjusted to provide optimal pain relief Did not tolerate dilaudid WAGE HAND Will follow further recommendations by anesthesia for optimal pain control Terminal with guarded prognosis (2) Hyponatremia Resolved (3) Hypokalemia Resolved (4) Obstructive jaundice Code(s): K83.1 - OBSTRUCTION OF BILE DUCT Status: Chronic Plan: CT abd/pelvis with worsening intrahepatic and extrahepatic biliary dilation and concern for stent malfunction I've consulted GI and DW the case with Dr. Prajapati Will follow further recommendations Related to pancreatic cancer (5) Polysubstance abuse Code(s): F19.10 - OTHER PSYCHOACTIVE SUBSTANCE ABUSE, UNCOMPLICATED Status: Chronic
[2019-09-07] MEDS: Sodium Chloride 0.9% 1,000 ML IV SCH (15:51)
--- NOTE | 2019-09-07 16:05 | PRG ---
DATE OF SERVICE: 09/07/2019 This is a 48-year-old unfortunate female with metastatic pancreatic carcinoma with biliary obstruction. She has continuos abdominal pain. She is on morphine 4 mg every 4 hours p.r.n. She was probably seen by Dr. Ayala, . Dr. Ayala feels that she needs to have more adequate pain control. Recommended IV morphine 6 mg every 4 hours. The patient's morphine was changed from 4 mg every 4 hours to 6 mg every 4 hours. She had a Chem-7 done today, in the Chem-7 actually the potassium back to normal. Job ID: [id number]
[2019-09-08] MEDS: HYDROcodone/Acetaminophen 5/325 mg Tablet PO PRN ×5 (00:19→21:32)
[2019-09-08] MEDS: Morphine 4 MG/ML VIAL SLOW IVP PRN ×5 (01:39→18:37)
[2019-09-08] MEDS: Sodium Chloride 0.9% 1,000 ML IV SCH ×3 (05:28→21:40)
[2019-09-08 05:34] LABS: #Basophils 0.1 thou/uL (0.0-0.2); #Eosinphils 0.1 thou/uL (0.0-0.7); #Lymphocytes 2.2 thou/uL (1.20-3.40); #Monocytes 0.5 thou/uL (0.11-0.59); #Neutrophils 6.6 thou/uL (1.40-6.50); %Basophils 0.5 % (0.0-1.0); %Eosinophils 1.4 % (0.0-10.0); %Lymphocytes 22.8 % (21.0-51.0); %Monocytes 5.5 % (0.0-10.0); %Neutrophils 69.7 % (42.0-75.0); Hemoglobin 8.4 g/dL (12.0-16.0); Mean Corpuscular HGB CONC 33.3 g/dL (32.0-36.0); Mean Corpuscular Hemoglobin 30.1 pg (27.0-31.0); Mean Corpuscular Volume 90.4 fL (78.0-98.0); Mean Platelet Volume 7.6 fL (7.4-10.4); Platelet Count 515 thou/uL (130-400); RBC Distribution Width 17.3 % (11.5-14.5); Red Blood Cell (RBC) Count 2.78 mill/uL (4.20-5.40); White Blood Cell (WBC) Count 9.4 thou/uL (4.8-10.8)
[2019-09-08 06:03] LABS: ALT (SGPT) 38 U/L (8-55); AST (SGOT) 63 U/L (5-34); Albumin 1.8 g/dL (3.5-5.0); Alkaline Phosphatase 769 U/L (40-110); Anion Gap 9 mmol/L (10-20); BUN (Urea Nitrogen) 7 mg/dL (7.0-18.7); Bilirubin, Total 14.3 mg/dL (0.2-1.2); Calc. Creatinine Clearance 142 mL/min (70-130); Calcium 7.2 mg/dL (7.8-10.44); Carbon Dioxide 26 mmol/L (22-29); Chloride 103 mmol/L (98-107); Estimated GFR-MDRD Greater than 90; Globulin 4.5 g/dL (2.4-3.5); Glucose 119 mg/dL (70-105); Potassium 3.3 mmol/L (3.5-5.1); Protein, Total 6.3 g/dL (6.0-8.3); Sodium 135 mmol/L (136-145)
[2019-09-08] MEDS: Polyethylene Glycol 3350 17 GM Packet PO SCH (09:11)
[2019-09-08] MEDS: Pantoprazole 40 MG VIAL IVP SCH (09:11)
--- NOTE | 2019-09-08 14:26 | PDOC.HOSPP ---
- Subjective Encounter Date: 09/08/19 Encounter Time: 14:24 Subjective: miserable - Objective Vital Signs & Weight: Vital Signs (12 hours) Temp Pulse Resp BP Pulse Ox 09/08/19 11:52 98.9 F 96 18 121/83 97 09/08/19 08:00 98 09/08/19 07:35 97.8 F 79 18 123/85 98 09/08/19 04:13 98 F 73 18 124/88 97 Weight Admit Weight 139 lb 15.896 oz Weight 139 lb 15.896 oz I&O: 09/07/19 09/08/19 09/09/19 06:59 06:59 06:59 Intake Total 1800 3235 Output Total 1500 1850 250 Balance 300 1385 -250 Result Diagrams: 09/08/19 05:02 09/08/19 05:02 Hospitalist ROS - Medication Medications: Active Medications Generic Name Dose Route Start Last Admin Trade Name Freq PRN Reason Stop Dose Admin Hydrocodone Bitart/Acetaminophen 1 tab 09/06/19 21:12 09/08/19 13:28 [place] 5/325 PO 1 tab Q4H PRN Administration Mild-Moderate Pain (1-5) Sodium Chloride 1,000 mls @ 75 mls/hr 09/07/19 15:00 09/08/19 05:28 Normal Saline 0.9% IV 1,000 mls .[id number] CHACE Administration Morphine Sulfate 6 mg 09/07/19 16:01 09/08/19 10:29 Morphine SLOW IVP 6 mg Q4H PRN Administration Severe Pain (7-10) Ondansetron HCl 4 mg 09/05/19 18:03 09/06/19 21:19 Zofran IVP 4 mg Q6H PRN Administration Nausea/Vomiting Pantoprazole Sodium 40 mg 09/06/19 09:00 09/08/19 09:11 Protonix IVP 40 mg DAILY CHACE Administration Polyethylene Glycol 17 gm 09/06/19 09:00 09/08/19 09:11 Miralax PO Not Given DAILY CHACE Sodium Chloride 10 ml 09/05/19 18:16 09/05/19 23:43 Flush - Normal Saline IVF 10 ml PRN PRN Administration Saline Flush - Exam Neck: no JVD Heart: RRR Respiratory: CTAB Gastrointestinal: soft, normal bowel sounds Extremities: 1+ LE edema Hosp A/P (1) Abnormal LFTs Code(s): R94.5 - ABNORMAL RESULTS OF LIVER FUNCTION STUDIES Status: Acute (2) COPD (chronic obstructive pulmonary disease) Status: Chronic (3) Obstructive jaundice Code(s): K83.1 - OBSTRUCTION OF BILE DUCT Status: Chronic (4) Pancreatic adenocarcinoma Code(s): C25.9 - MALIGNANT NEOPLASM OF PANCREAS, UNSPECIFIED Status: Chronic (5) Hyponatremia Code(s): E87.1 - HYPO-OSMOLALITY AND HYPONATREMIA Status: Acute - Plan awaiting hospice referral cont [place] for now
--- NOTE | 2019-09-08 17:30 | PRG ---
DATE OF SERVICE: 09/08/2019 SUBJECTIVE: Ms. Rangel continues to have abdominal discomfort. Pain medications are helping though relief is not complete. No vomiting. She has decided to go back on hospice care, which is definitely appropriate. OBJECTIVE: VITAL SIGNS: Temperature 98.3, pulse 106, blood pressure 105/69, 96% oxygen saturation on room air. GENERAL: Mild distress. HEART: Regular tachycardia. LUNGS: Clear to auscultation bilaterally. ABDOMEN: Soft, tender to palpation, but no guarding, rebound, tenderness. EXTREMITIES: No peripheral edema. She is jaundiced. LABORATORY STUDIES: WBC is down to 9.4, hemoglobin 8.4, platelets 515. Sodium 135, potassium 3.3, BUN 7, creatinine 0.48. Total bilirubin 14.3, down from admission, alkaline phosphatase 769, AST 63, ALT 38. ASSESSMENT AND PLAN: 1. Metastatic pancreatic cancer. 2. Biliary obstruction secondary to pancreatic cancer, despite metal biliary stent, which was placed in [place] back in May 2019. 3. Diffuse abdominal pain, secondary to metastatic pancreatic cancer and biliary obstruction. I had a long discussion with the patient today. There is evidence of recurrent biliary obstruction despite metal stent which was placed just a few months ago in [place]. This is likely secondary to tumor ingrowth of the stent. Unfortunately, there is really no intervention we can perform that is going to change her end of point. There was some concern for cholangitis on presentation, but with antibiotics, her white count has normalized. 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 I think the patient would be best served by going back on hospice care and getting the pain medications she needs to be as comfortable as possible with the time she has left. We will not plan on any endoscopic procedure. GI will sign off, but please call back anytime with questions or concerns. Job ID: [id number]
[2019-09-09] MEDS: Morphine 4 MG/ML VIAL SLOW IVP PRN ×3 (00:05→08:25)
[2019-09-09] MEDS: HYDROcodone/Acetaminophen 5/325 mg Tablet PO PRN ×3 (02:00→10:41)
[2019-09-09] MEDS: Pantoprazole 40 MG VIAL IVP SCH (08:24)
[2019-09-09] MEDS: Polyethylene Glycol 3350 17 GM Packet PO SCH (08:33)
[2019-09-09] MEDS ORDERED: HYDROcodone/Acetaminophen 10/325 mg Tablet PO PRN (11:21)
[2019-09-09] MEDS: Morphine 4 MG/ML VIAL SLOW IVP SCH ×5 (11:43→21:07)
[2019-09-09] MEDS: Lorazepam 2 MG/ML VIAL SLOW IVP SCH ×2 (12:13→18:29)
[2019-09-09] MEDS ORDERED: Morphine 4 MG/ML VIAL SLOW IVP SCH (21:00)
[2019-09-10] MEDS: Lorazepam 2 MG/ML VIAL SLOW IVP SCH ×5 (00:25→23:19)
[2019-09-10] MEDS: Morphine 4 MG/ML VIAL SLOW IVP SCH ×2 (04:19→08:41)
[2019-09-10] MEDS ORDERED: Morphine 10 MG/ML VIAL SLOW IVP PRN (12:41)
[2019-09-10] MEDS: Morphine 4 MG/ML VIAL SLOW IVP PRN ×6 (12:54→23:18)
[2019-09-10] MEDS ORDERED: Acetaminophen 650 MG Suppository PR PRN (23:45)
[2019-09-10] MEDS ORDERED: Acetaminophen 325 MG TAB PO PRN (23:45)
[2019-09-11] MEDS: Morphine 4 MG/ML VIAL SLOW IVP PRN ×4 (01:50→09:17)
[2019-09-11] MEDS: Lorazepam 2 MG/ML VIAL SLOW IVP SCH (05:37)
[2019-09-11 07:50] VITALS: BP 138/83; TEMP 98.4
[2019-09-11] MEDS ORDERED: Morphine 4 MG/ML VIAL SLOW IVP PRN (09:50)
[2019-09-11] MEDS ORDERED: Ketorolac Tromethamine 30 MG/ML VIAL IVP SCH (12:00)
--- NOTE | 2019-09-11 12:01 | DIS ---
DATE OF ADMISSION: 09/05/2019 DATE OF DISCHARGE: 09/09/2019 PCP: Unknown. Transferred to inpatient hospice under the care of Dr. Kyle Chacko on 09/09/2019. FINAL DIAGNOSES: Pancreatic carcinoma; hyponatremia; obstructive jaundice; abdominal pain, severe and unrelenting; chronic obstructive pulmonary disease. MEDICATIONS: At transfer; 1. Morphine 8 mg IV q.2 hours IV q.6 hours p.r.n. 2. Hydrocodone 10/325 one every 6 hours p.r.n. pain. These medicines were written by Dr. Kyle Chacko, the physician caring for the patient at this time. HOSPITAL COURSE: The patient previously on hospice, presented at the [facility], [facility]. Discussion with the patient, the admitting doctor, confirmed do not attempt resuscitation, confirmed that all she wanted was pain relief. Hospice was consulted as was Dr. Victorina Iglesias, Gastroenterology. No procedures were done. The patient was accepted for inpatient hospice, care transferred to inpatient hospice. Followup per inpatient hospice. PERTINENT LABORATORY: White cell count initially 18.9, followup 9.4; hemoglobin 10.6, followup 8.4. Bilirubin 16.6, 14.3. Lytes; sodium 130, potassium 2.1, BUN 6, creatinine 0.45. Job ID: [id number] [facility]
[2019-09-11] MEDS ORDERED: Lorazepam 2 MG/ML VIAL SLOW IVP SCH (13:00)
[2019-09-11] MEDS ORDERED: Morphine 4 MG/ML VIAL SLOW IVP SCH (13:00)
--- NOTE | 2019-09-12 14:15 | CON ---
DATE OF CONSULTATION: 09/06/2019 REASON FOR CONSULTATION: Abdominal pain, jaundice, and biliary obstruction. HISTORY OF PRESENT ILLNESS: Ms. Dinorah Rangel is a very pleasant, fragile looking female with a diagnosis of pancreatic cancer in May 2019. She underwent biliary stent placement by Dr. Hiro Mckinney and subsequently she was sent to [facility] and she underwent EUS and biopsy showing chronic pancreatic cancer. The plastic stent was removed at the same dose and had a better stent placement. The patient was hospitalized with abdominal pain and jaundice in July 2019. The patient was seen by Dr. Hiro Mckinney and there was a mention of possibly placing another stent. However, this was not done. The patient opted to go to hospice and was sent to the hospice care. The patient was actually doing well during hospice care because her pain was controlled with pain medications adequately. The patient came out of hospice four weeks ago. The patient has a history of chronic abdominal pain and has been taking multiple pain medications. She came to the ER with abdominal pain, which is worsening over the last several days and also has had some nausea and vomiting. She has had no fever. She has clear liquid diet and she is tolerating diet. Actually, she is hungry and she really wants a regular diet today. ALLERGIES: NONE. SOCIAL HISTORY: History of longstanding alcohol abuse along with polysubstance abuse, also is a chronic smoker. MEDICAL ILLNESS: 1. Pancreatic cancer with obstructive jaundice in May 2019. 2. COPD. 3. Bipolar disorder. 4. Chronic acid reflux. SURGERIES: 1. Tubal ligation. 2. Biliary stent placement. FAMILY HISTORY: Mother has heart disease. No family history of any cancer. REVIEW OF SYSTEMS: A 10-point systems reviewed. Remarkable basically for abdominal pain, nausea, vomiting, weight loss, etc. PHYSICAL EXAMINATION: GENERAL: She is a fragile looking female, appears comfortable, in no acute distress at the present time. VITAL SIGNS: Afebrile. Her pulse is 85, blood pressure 110/70. She is deeply jaundiced. NECK: Supple. No adenitis or thyromegaly noted. CARDIOVASCULAR SYSTEM: First and second sounds heart sounds are normal. LUNGS: Clear to auscultation. ABDOMEN: Soft, presently benign mildly tender over the right upper quadrant. Overall, the information is very benign. EXTREMITIES: Reveal no edema. LABORATORY DATA: WBC count of 18,900, however, hemoglobin is 10.6, hematocrit 31.7, platelet count is 558,000, polymorphs 85, bands 1, lymphocytes 11. Chemistries, sodium 130, potassium 2.1, chloride 91, bicarb is 28, BUN is 6, creatinine 0.45, glucose is 82, calcium 7.5, bilirubin is 23.5, which was markedly increased 5 mg% with the last admission in July 2019. AST 59, ALT 49, alkaline phosphatase , albumin 2.5. Abdominal CAT scan shows pancreatic mass and also markedly dilated CBD stent in the bile duct. CLINICAL IMPRESSION: 1. Abdominal pain, most likely from pancreatic cancer and there is a possibility of biliary obstruction causing the pain. She is not septic at the present time. 2. Status post stent placement x3. She had a metal stent placement I believe a couple of months ago. It is possible can be growing into stent causing biliary obstruction. RECOMMENDATION: 1. Advance diet to regular diet as the patient wants to eat. 2. Correction of hyponatremia and hypokalemia. 3. I did talk to the patient and she really wants to have another stent placement done. She was also explained the technical difficulty with growth in the stent and sometime it may take . The other option is to drainage can be done, which could be a long-term solution. I wonder hypokalemia is corrected. We will plan for possibly an attempted ERCP. Job ID: [id number]
== END 2019-09-08 11:00 | disposition hospice, inpatient (51) | DRG 435 ==
LOC: ERS 13:21 → SURG A 19:14
PROVIDERS: ADMIT Emergency Medicine; ATTEND Emergency Medicine
DX: C25.9 Malignant neoplasm of pancreas, unspecified (principal); K83.1 Obstruction of bile duct; K83.09 Other cholangitis; E87.1 Hypo-osmolality and hyponatremia; K52.89 Other specified noninfective gastroenteritis and colitis; F10.10 Alcohol abuse, uncomplicated; Z51.5 Encounter for palliative care; J44.9 Chronic obstructive pulmonary disease, unspecified; F31.9 Bipolar disorder, unspecified; F19.10 Other psychoactive substance abuse, uncomplicated; F41.9 Anxiety disorder, unspecified; E87.6 Hypokalemia; E86.0 Dehydration; K21.9 Gastro-esophageal reflux disease without esophagitis; F17.210 Nicotine dependence, cigarettes, uncomplicated; Z98.51 Tubal ligation status; Z59.0 Homelessness
CPT/HCPCS: 36415; 51702; 71045; 74177; 80048; 80053; 81003; 82140; 82248; 83605; 83690; 83880; 84484; 85025; 93005; 96361; 96374; 96375; 96376; C9113; J2060; J2270; J2405; J2543; J3010; J3480; S0028

== ENCOUNTER 2019-09-09 11:01 | Inpatient (IN) | payer OTHER ==
[2019-09-11] MEDS ORDERED: Morphine 4 MG/ML VIAL SLOW IVP PRN ×2 (14:46→14:47)
[2019-09-11] MEDS ORDERED: HYDROcodone/Acetaminophen 10/325 mg Tablet PO PRN (14:46)
[2019-09-11] MEDS ORDERED: Lorazepam 2 MG/ML VIAL SLOW IVP PRN (14:47)
[2019-09-11] MEDS ORDERED: Ketorolac Tromethamine 30 MG/ML VIAL IVP PRN (14:47)
[2019-09-11] MEDS: Lorazepam 2 MG/ML VIAL SLOW IVP SCH ×2 (16:32→20:00)
[2019-09-11] MEDS: Morphine 4 MG/ML VIAL SLOW IVP SCH ×2 (18:07→23:19)
[2019-09-11] MEDS: Ketorolac Tromethamine 30 MG/ML VIAL IVP SCH ×2 (18:09→23:20)
[2019-09-11] MEDS ORDERED: Acetaminophen 325 MG TAB PO PRN (18:51)
[2019-09-12] MEDS: Lorazepam 2 MG/ML VIAL SLOW IVP SCH ×3 (00:46→09:09)
[2019-09-12 01:24] VITALS: BMI 22.4
[2019-09-12] MEDS: Ketorolac Tromethamine 30 MG/ML VIAL IVP SCH (05:01)
[2019-09-12] MEDS: Morphine 4 MG/ML VIAL SLOW IVP SCH (05:01)
[2019-09-12] MEDS: Lorazepam 1 MG TAB PO SCH ×4 (09:42→20:19)
[2019-09-12] MEDS: Morphine ER 15 MG TAB PO SCH ×2 (09:42→20:19)
[2019-09-12] MEDS: fentaNYL 50 mcg/hour Patch TD SCH (10:20)
[2019-09-12] MEDS: HYDROcodone/Acetaminophen 10/325 mg Tablet PO SCH ×2 (12:34→17:47)
[2019-09-12] MEDS ORDERED: Morphine 4 MG/ML VIAL SLOW IVP PRN (15:21)
[2019-09-12] MEDS ORDERED: Morphine 4 MG/ML VIAL ONE (15:22)
[2019-09-13] MEDS: Lorazepam 1 MG TAB PO SCH ×6 (02:52→20:41)
[2019-09-13] MEDS: HYDROcodone/Acetaminophen 10/325 mg Tablet PO SCH ×5 (02:53→23:46)
[2019-09-13] MEDS: Morphine ER 15 MG TAB PO SCH ×2 (09:28→20:39)
[2019-09-14] MEDS: Lorazepam 1 MG TAB PO SCH ×6 (01:12→23:56)
[2019-09-14] MEDS: HYDROcodone/Acetaminophen 10/325 mg Tablet PO SCH ×2 (06:23→14:51)
[2019-09-14] MEDS: Morphine ER 15 MG TAB PO SCH ×2 (09:13→20:53)
[2019-09-14] MEDS ORDERED: HYDROcodone/Acetaminophen 10/325 mg Tablet PO PRN (15:14)
[2019-09-14] MEDS ORDERED: Lorazepam 1 MG TAB PO PRN (15:15)
[2019-09-15] MEDS: Lorazepam 1 MG TAB PO SCH ×2 (05:39→11:48)
[2019-09-15 07:48] VITALS: BP 95/64; TEMP 98.7
[2019-09-15] MEDS: Morphine ER 15 MG TAB PO SCH (09:11)
[2019-09-15] MEDS: fentaNYL 50 mcg/hour Patch TD SCH (10:12)
== END 2019-09-15 16:45 | disposition hospice, inpatient (51) | DRG 445 ==
LOC: SURG A 11:01
PROVIDERS: ADMIT Emergency Medicine; ATTEND Emergency Medicine
DX: K83.1 Obstruction of bile duct (principal); C25.9 Malignant neoplasm of pancreas, unspecified; Z51.5 Encounter for palliative care; J44.9 Chronic obstructive pulmonary disease, unspecified; F31.9 Bipolar disorder, unspecified; K21.9 Gastro-esophageal reflux disease without esophagitis; F17.210 Nicotine dependence, cigarettes, uncomplicated; F10.20 Alcohol dependence, uncomplicated; Z98.51 Tubal ligation status; Z66 Do not resuscitate
CPT/HCPCS: J1885; J2060; J2270